=== PATIENT | male | born 1955 | race Caucasian/White ===

== ENCOUNTER 2020-05-27 14:02 | Inpatient (IN) | payer MEDICARE, OTHER ==
[~2020-05-27] VITALS: Ht 185.4 cm; Wt 94.4 kg
[2020-05-27 16:20] VITALS: BP 127/75
[2020-05-27] MEDS ORDERED: MAG HYDROX/AL HYDROX/SIMETH 30 ML ORAL.SUSP PO PRN (16:30)
[2020-05-27] MEDS ORDERED: METHYL SALICYLATE/MENTHOL TOPICAL OINTMENT 57GM TUBE. TP PRN (16:30)
[2020-05-27] MEDS ORDERED: ACETAMINOPHEN 325 MG TABLET PO PRN (16:30)
[2020-05-27] MEDS ORDERED: MAGNESIUM HYDROXIDE 2,400 MG/30 ML ORAL.SUSP. PO PRN (16:30)
[2020-05-27] MEDS ORDERED: MULT-237 PO (17:33)
[2020-05-27] MEDS ORDERED: ERGO500027 PO (17:33)
[2020-05-27] MEDS ORDERED: POLY2500 PO (17:33)
[2020-05-27] MEDS ORDERED: ONDA-84 PO (17:33)
[2020-05-27] MEDS ORDERED: DONE10TA7 PO (17:33)
[2020-05-27] MEDS ORDERED: LORA10TA3 PO (17:33)
[2020-05-27] MEDS ORDERED: QUET100T4 PO (17:33)
[2020-05-27] MEDS ORDERED: CYAN500T7 PO (17:33)
[2020-05-27] MEDS ORDERED: TRAZ-120 PO (17:33)
[2020-05-27] MEDS ORDERED: MEMA10TA PO (17:33)
[2020-05-27] MEDS ORDERED: ACET500T68 PO (17:33)
[2020-05-27] MEDS ORDERED: ASPI81TA59 PO (17:33)
[2020-05-27] MEDS ORDERED: DOCU100C28 PO (17:33)
[2020-05-27] MEDS ORDERED: FLUT16SP21 NS (17:33)
[2020-05-27] MEDS ORDERED: OMEP20CA16 PO (17:33)
[2020-05-27] MEDS ORDERED: MELA10CA PO (17:33)
[2020-05-27] MEDS ORDERED: FLUV50TA2 PO (17:33)
[2020-05-27 18:06] LABS: BACTERIA,URINE 0 /HPF (0-FEW); BILIRUBIN,URINE NEG (NEG); CLARITY,URINE CLEAR; COLOR,URINE YELLOW; GLUCOSE,URINE NEG (NEG); NITRITE,URINE NEG (NEG); RBC,URINE RARE /HPF (0-2); WBC,URINE RARE /HPF (0-4)
[2020-05-27] MEDS ORDERED: ACETAMINOPHEN 500 MG TABLET PO PRN (18:15)
[2020-05-27] MEDS ORDERED: ONDANSETRON ODT 4 MG TAB.RAPDIS PO PRN (19:00)
[2020-05-27] MEDS: QUEtiapine 100 MG TABLET. PO SCH (20:02)
[2020-05-27] MEDS: DOCUSATE SODIUM 100 MG CAPSULE PO SCH (20:02)
[2020-05-27] MEDS: MEMANTINE 10 MG TABLET. PO SCH (20:02)
[2020-05-27] MEDS: DONEPEZIL HCL 10 MG TABLET PO SCH (20:02)
--- NOTE | 2020-05-27 20:58 | PDOC ---
Exam Note: Floyd Note: Please also refer to the separate dictated note~for this date of service dictated separately.~Patient seen individually. Discussed the patient with Nursing staff reviewed the chart.~Reviewed interim history and current functioning. Reviewed vital signs,~Labs/ Radiology~and current medications noted below. Continue current treatment with the changes noted in the dictated addendum note Assessment: Vital Signs/I&O: Vital Signs Date Time Temp Pulse Resp B/P (MAP) Pulse Ox O2 Delivery O2 Flow Rate FiO2 05/27/20 16:20 97.3 73 20 127/75 (92) 95 Room Air Labs: Laboratory Tests Test 05/27/20 17:30 Urine Collection Type Unknown Urine Color Yellow Urine Clarity Clear Urine pH 5.5 Urine Specific Eldred 1.025 Urine Protein Neg (NEG-TRACE) Urine Glucose (UA) Neg mg/dL (NEG) Urine Ketones (Stick) Neg mg/dL (NEG) Urine Blood Neg (NEG) Urine Nitrite Neg (NEG) Urine Bilirubin Neg (NEG) Urine Urobilinogen Dipstick 1.0 mg/dL (0.2 mg/dL) Urine Leukocyte Esterase Neg (NEG) Urine RBC Rare /HPF (0-2) Urine WBC Rare /HPF (0-4) Urine Squamous Epithelial Cells None /LPF Urine Bacteria 0 /HPF (0-FEW) Urine Mucus Slight /LPF Current Medications: Meds: Laboratory Tests Test 05/27/20 17:30 Urine Collection Type Unknown Urine Color Yellow Urine Clarity Clear Urine pH 5.5 Urine Specific Eldred 1.025 Urine Protein Neg Urine Glucose (UA) Neg mg/dL Urine Ketones (Stick) Neg mg/dL Urine Blood Neg Urine Nitrite Neg Urine Bilirubin Neg Urine Urobilinogen Dipstick 1.0 mg/dL Urine Leukocyte Esterase Neg Urine RBC Rare /HPF Urine WBC Rare /HPF Urine Squamous Epithelial Cells None /LPF Urine Bacteria 0 /HPF Urine Mucus Slight /LPF Current Medications Medications (Trade) Dose Ordered Sig/Neftali Route PRN Reason Start Time Stop Time Status Last Admin Dose Admin Acetaminophen (Tylenol) 650 mg PRN Q6HRS PRN PO MILD PAIN / TEMP > 100.3'F 05/27/20 16:30 Multi-Ingredient Ointment (Analgesic Leonard) 1 herman PRN QID PRN TP MUSCLE PAIN 05/27/20 16:30 Al Hydroxide/Mg Hydroxide (Mylanta Plus Xs) 15 ml PRN AFTMEALHC PRN PO DYSPEPSIA 05/27/20 16:30 Magnesium Hydroxide (Milk Of Magnesia) 2,400 mg PRN QHS PRN PO CONSTIPATION 05/27/20 16:30 Acetaminophen (Tylenol) 500 mg PRN Q6HRS PRN PO PAIN 05/27/20 18:15 UNV Aspirin (Aspirin Chewable) 81 mg DAILY PO 05/28/20 09:00 Docusate Sodium (Colace) 100 mg BID PO 05/27/20 21:00 05/27/20 20:02 Donepezil HCl (Aricept) 10 mg HS PO 05/27/20 21:00 05/27/20 20:02 Fluticasone Propionate (Flonase) 1 spray DAILY NS 05/28/20 09:00 Memantine (Namenda) 10 mg BID PO 05/27/20 21:00 05/27/20 20:02 Quetiapine Fumarate (SEROquel) 100 mg QHS PO 05/27/20 21:00 05/27/20 20:02 Trazodone HCl (Desyrel) 50 mg QHS PO 05/27/20 21:00 05/27/20 20:02 Cyanocobalamin (Vitamin B-12) 100 mcg DAILY PO 05/28/20 09:00 Non-Formulary Medication (Ergocalciferol (Vitamin D2) (Vitamin D2)) 1,250 mcg WEEKLY PO 06/03/20 09:00 UNV Fluvoxamine Maleate (Luvox) 50 mg QHS PO 05/27/20 21:00 05/27/20 20:02 Cetirizine HCl (ZyrTEC) 10 mg DAILY PO 05/28/20 09:00 Melatonin (Melatonin) 9 mg HS PO 05/27/20 21:00 05/27/20 20:02 Multivitamins/ Calcium (Thera-M Plus) 1 tab DAILY PO 05/28/20 09:00 Pantoprazole Sodium (Protonix) 40 mg DAILYAC PO 05/28/20 07:30 Ondansetron HCl (Zofran Odt) 4 mg PRN Q6HRS PRN PO NAUSEA/VOMITING 05/27/20 19:00 Polyethylene Glycol (miraLAX) 17 gm DAILY PO 05/28/20 09:00 Vitamin D (Vitamin D3) 50,000 unit WEEKLY PO 05/28/20 09:00 Current Medications Medications (Trade) Dose Ordered Sig/Neftali Route PRN Reason Start Time Stop Time Status Last Admin Dose Admin Docusate Sodium (Colace) 100 mg BID PO 05/27/20 21:00 05/27/20 20:02 Donepezil HCl (Aricept) 10 mg HS PO 05/27/20 21:00 05/27/20 20:02 Memantine (Namenda) 10 mg BID PO 05/27/20 21:00 05/27/20 20:02 Quetiapine Fumarate (SEROquel) 100 mg QHS PO 05/27/20 21:00 05/27/20 20:02 Trazodone HCl (Desyrel) 50 mg QHS PO 05/27/20 21:00 05/27/20 20:02 Fluvoxamine Maleate (Luvox) 50 mg QHS PO 05/27/20 21:00 05/27/20 20:02 Melatonin (Melatonin) 9 mg HS PO 05/27/20 21:00 05/27/20 20:02 I have reviewed the current psychotropics carefully including drug interactions. Risk benefit ratio favors no change other than as noted in my dictated progress note. Diagnosis: Problems: (1) Major neurocognitive disorder AYLIN VALENCIA MD May 27, 2020 20:58
[2020-05-27] MEDS ORDERED: traZODone 50 MG TABLET. PO SCH (21:00)
[2020-05-27] MEDS ORDERED: MELATONIN 3 MG TABLET PO SCH (21:00)
[2020-05-27 22:23] LABS: BASO % 0 % (0-3); EOS # 0.1 x10^3/uL (0.0-0.7); EOS % 1 % (0-3); HEMATOCRIT 47.9 % (39.0-53.0); HEMOGLOBIN 16.1 g/dL (13.0-17.5); LYMPH # 1.5 x10^3/uL (1.0-4.8); LYMPH % 15 % (24-48); MEAN CORPUSCULAR HEMOGLOBIN 33 pg (25-35); MEAN CORPUSCULAR HGB CONC 34 g/dL (31-37); MEAN CORPUSCULAR VOLUME 97 fL (79-100); MONO # 0.5 x10^3/uL (0.0-1.1); MONO % 6 % (0-9); NEUT # 7.6 x10^3uL (1.8-7.7); NEUT % 78 % (31-73); PLATELET COUNT 185 x10^3/uL (140-400); RED BLOOD COUNT 4.96 x10^6/uL (4.30-5.70); RED CELL DISTRIBUTION WIDTH 14.5 % (11.5-14.5); WHITE BLOOD COUNT 9.7 x10^3/uL (4.0-11.0)
[2020-05-27 22:45] LABS: ALBUMIN 3.8 g/dL (3.4-5.0); CALCIUM 9.2 mg/dL (8.5-10.1); CREATININE 1.1 mg/dL (0.7-1.3); GFR 67.6; MAGNESIUM 2.1 mg/dL (1.8-2.4); TOTAL BILIRUBIN 2.4 mg/dL (0.2-1.0); TOTAL PROTEIN 7.5 g/dL (6.4-8.2)
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
[2020-05-28 05:30] VITALS: BP 108/70
[2020-05-28] MEDS: DOCUSATE SODIUM 100 MG CAPSULE PO SCH ×2 (09:43→19:58)
[2020-05-28] MEDS: ASPIRIN CHEWABLE 81 MG TABLET. PO SCH (09:43)
[2020-05-28] MEDS: PANTOPRAZOLE 40 MG TABLET. PO SCH (09:44)
[2020-05-28] MEDS: CYANOCOBALAMIN (VITAMIN B-12) 100 MCG TABLET PO SCH (09:44)
[2020-05-28] MEDS: CHOLECALCIFEROL (VITAMIN D3) 50,000 UNIT CAPSULE PO SCH (09:44)
[2020-05-28] MEDS: FLUTICASONE 50MCG/NASAL SPRAY 16GM BOTTLE. NS SCH (09:44)
[2020-05-28] MEDS: CETIRIZINE HCL 10 MG TABLET PO SCH (09:44)
[2020-05-28] MEDS: MEMANTINE 10 MG TABLET. PO SCH ×2 (09:44→19:58)
[2020-05-28] MEDS: POLYETHYLENE GLYCOL 3350 17 GM PACKET. PO SCH (09:44)
[2020-05-28] MEDS: MULTIVITAMIN with MINERAL TABLET. PO SCH (09:46)
[2020-05-28 13:10] LABS: THYROXINE 7.4 ug/dL (4.5-12.0)
[2020-05-28 15:21] VITALS: BP 106/79
[2020-05-28 15:23] LABS: THYROID STIM HORMONE (TSH) 0.655 uIU/mL (0.358-3.740)
--- NOTE | 2020-05-28 15:27 | RAD ---
Examination: CT head and cervical spine without contrast CT HEAD INDICATION: Traumatic brain injury altered mental status COMPARISON: None Available. Exposure: One or more of the following individualized dose reduction techniques were utilized for thi s examination: 1. Automated exposure control 2. Adjustment of the mA and/or kV according to patient size 3. Use of iterative reconstruction technique TECHNIQUE: 5 mm contiguous axial images were obtained from the skull base to the vertex in both bone and soft tissue algorithm. FINDINGS: No abnormal attenuation within the brain parenchyma. No evidence of acute intracranial hemorrhage. No extra-axial fluid collections. No mass effect or midline shift. Ventricular size is appropriate. Basal cisterns are patent. No fractures identified.Muñoz-white differentiation is preserved.Globes and orbits are within normal l imits. Paranasal sinuses and mastoid air cells are clear. CT CERVICAL SPINE INDICATION: Traumatic brain injury, altered mental status COMPARISON: None Available. Technique: 2.5 mm contiguous axial images were obtained from the skull base through the cervicothorac ic junction in both bone and soft tissue algorithm. Additional sagittal and coronal reconstructions were also performed. FINDINGS: Vertebral body height and alignment are maintained. Cervical lordosis is preserved. The l ateral masses of C1 are aligned upon C2. No fractures identified. The bony canal is patent throughout. Moderate intervertebral disc height loss identified in the cervical spine throughout likely degenerat jose changes. The paraspinous soft tissues are unremarkable. Visualized intracranial contents are unremarkable. L nadia apices are clear. IMPRESSION: 1. No acute intracranial findings. Consider MRI if there is clinical suspicion of ischemic stroke. 2. No acute fracture cervical spine. Correlate clinically. 3. Moderate degenerative changes cervical spine. Electronically signed by: Faizan Aguillon MD (05/28/2020 3:25 PM) [id number]
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
[2020-05-28] MEDS: DONEPEZIL HCL 10 MG TABLET PO SCH (19:58)
[2020-05-28] MEDS: QUEtiapine 100 MG TABLET. PO SCH (19:58)
[2020-05-28] MEDS: MELATONIN 3 MG TABLET PO PRN (20:20)
--- NOTE | 2020-05-28 21:01 | PDOC ---
Exam Note: Floyd Note: Please also refer to the separate dictated note~for this date of service dictated separately.~Patient seen individually. Discussed the patient with Nursing staff reviewed the chart.~Reviewed interim history and current functioning. Reviewed vital signs,~Labs/ Radiology~and current medications noted below. Continue current treatment with the changes noted in the dictated addendum note Assessment: Vital Signs/I&O: Vital Signs Date Time Temp Pulse Resp B/P (MAP) Pulse Ox O2 Delivery O2 Flow Rate FiO2 05/28/20 15:21 97.6 94 18 106/79 (88) 97 Room Air Labs: Laboratory Tests Test 05/27/20 22:07 05/28/20 06:12 White Blood Count 9.7 x10^3/uL (4.0-11.0) Red Blood Count 4.96 x10^6/uL (4.30-5.70) Hemoglobin 16.1 g/dL (13.0-17.5) Hematocrit 47.9 % (39.0-53.0) Mean Corpuscular Volume 97 fL (79-100) Mean Corpuscular Hemoglobin 33 pg (25-35) Mean Corpuscular Hemoglobin Concent 34 g/dL (31-37) Red Cell Distribution Width 14.5 % (11.5-14.5) Platelet Count 185 x10^3/uL (140-400) Neutrophils (%) (Auto) 78 % (31-73) H Lymphocytes (%) (Auto) 15 % (24-48) L Monocytes (%) (Auto) 6 % (0-9) Eosinophils (%) (Auto) 1 % (0-3) Basophils (%) (Auto) 0 % (0-3) Neutrophils # (Auto) 7.6 x10^3uL (1.8-7.7) Lymphocytes # (Auto) 1.5 x10^3/uL (1.0-4.8) Monocytes # (Auto) 0.5 x10^3/uL (0.0-1.1) Eosinophils # (Auto) 0.1 x10^3/uL (0.0-0.7) Basophils # (Auto) 0.0 x10^3/uL (0.0-0.2) Sodium Level 142 mmol/L (136-145) Potassium Level 4.0 mmol/L (3.5-5.1) Chloride Level 104 mmol/L (98-107) Carbon Dioxide Level 29 mmol/L (21-32) Anion Gap 9 (6-14) Blood Urea Nitrogen 25 mg/dL (8-26) Creatinine 1.1 mg/dL (0.7-1.3) Estimated GFR (Cockcroft-Gault) 67.6 BUN/Creatinine Ratio 23 (6-20) H Glucose Level 100 mg/dL (70-99) H Calcium Level 9.2 mg/dL (8.5-10.1) Magnesium Level 2.1 mg/dL (1.8-2.4) Iron Level 60 ug/dL (65-175) L Total Iron Binding Capacity 252 ug/dL (250-450) Iron Saturation 24 % (15-34) Total Bilirubin 2.4 mg/dL (0.2-1.0) H Aspartate Amino Transferase (AST) 22 U/L (15-37) Alanine Aminotransferase (ALT) 34 U/L (16-63) Alkaline Phosphatase 102 U/L (46-116) Total Protein 7.5 g/dL (6.4-8.2) Albumin 3.8 g/dL (3.4-5.0) Albumin/Globulin Ratio 1.0 (1.0-1.7) Triglycerides Level 82 mg/dL (0-150) Cholesterol Level 152 mg/dL (0-200) LDL Cholesterol, Calculated 98 mg/dL (0-100) VLDL Cholesterol, Calculated 16 mg/dL (0-40) Non-HDL Cholesterol Calculated 114 mg/dL (0-129) HDL Cholesterol 38 mg/dL (40-60) L Cholesterol/HDL Ratio 4.0 Vitamin B12 Level 1735 pg/mL (247-911) H 25-Hydroxy Vitamin D Total 41.8 ng/mL (30-100) Thyroid Stimulating Hormone (TSH) 0.655 uIU/mL (0.358-3.740) Thyroxine (T4) 7.4 ug/dL (4.5-12.0) Total Triiodothyronine (TT3) 85 ng/dL (71-180) Treponema pallidum Antibody Nonreactive (Nonreactive) D-Dimer (Alejandra) 0.28 mg/L (0.00-0.50) Current Medications: Meds: Current Medications Medications (Trade) Dose Ordered Sig/Neftali Route PRN Reason Start Time Stop Time Status Last Admin Dose Admin Aspirin (Aspirin Chewable) 81 mg DAILY PO 05/28/20 09:00 05/28/20 09:43 Fluticasone Propionate (Flonase) 1 spray DAILY NS 05/28/20 09:00 05/28/20 09:44 Cyanocobalamin (Vitamin B-12) 100 mcg DAILY PO 05/28/20 09:00 05/28/20 09:44 Cetirizine HCl (ZyrTEC) 10 mg DAILY PO 05/28/20 09:00 05/28/20 09:44 Multivitamins/ Calcium (Thera-M Plus) 1 tab DAILY PO 05/28/20 09:00 05/28/20 09:46 Pantoprazole Sodium (Protonix) 40 mg DAILYAC PO 05/28/20 07:30 05/28/20 09:44 Polyethylene Glycol (miraLAX) 17 gm DAILY PO 05/28/20 09:00 05/28/20 09:44 Vitamin D (Vitamin D3) 50,000 unit WEEKLY PO 05/28/20 09:00 05/28/20 09:44 Melatonin (Melatonin) 6 mg PRN QHS PRN PO INSOMNIA 05/28/20 11:15 05/28/20 20:20 I have reviewed the current psychotropics carefully including drug interactions. Risk benefit ratio favors no change other than as noted in my dictated progress note. Diagnosis: Problems: (1) Dementia in Alzheimer's disease with delusions (2) Dementia in Alzheimer's disease with depression (3) Dementia of the Alzheimer's type with early onset with behavioral disturbance (4) Dementia, vascular, with delusions (5) Dementia, vascular, with depression (6) Anxiety disorder, unspecified (7) Impulse control disorder, unspecified (8) Major neurocognitive disorder AYLIN VALENCIA MD May 28, 2020 21:01
[2020-05-28 23:10] LABS: HEMOGLOBIN A1C 5.2 % (4.8-5.6)
[2020-05-29 05:46] VITALS: BP 107/70
[2020-05-29] MEDS: MEMANTINE 10 MG TABLET. PO SCH ×2 (08:50→19:40)
[2020-05-29] MEDS: ASPIRIN CHEWABLE 81 MG TABLET. PO SCH (08:50)
[2020-05-29] MEDS: POLYETHYLENE GLYCOL 3350 17 GM PACKET. PO SCH (08:50)
[2020-05-29] MEDS: FLUTICASONE 50MCG/NASAL SPRAY 16GM BOTTLE. NS SCH (08:50)
[2020-05-29] MEDS: PANTOPRAZOLE 40 MG TABLET. PO SCH (08:50)
[2020-05-29] MEDS: CETIRIZINE HCL 10 MG TABLET PO SCH (08:50)
[2020-05-29] MEDS: DOCUSATE SODIUM 100 MG CAPSULE PO SCH ×2 (08:50→19:40)
[2020-05-29] MEDS: MULTIVITAMIN with MINERAL TABLET. PO SCH (08:50)
[2020-05-29] MEDS: CYANOCOBALAMIN (VITAMIN B-12) 100 MCG TABLET PO SCH (08:50)
[2020-05-29 16:55] VITALS: BP 150/83
[2020-05-29] MEDS: DONEPEZIL HCL 10 MG TABLET PO SCH (19:40)
[2020-05-29] MEDS: QUEtiapine 100 MG TABLET. PO SCH (19:40)
[2020-05-29] MEDS: MELATONIN 3 MG TABLET PO PRN (19:40)
[2020-05-30 05:25] VITALS: BP 105/70
[2020-05-30] MEDS: FLUTICASONE 50MCG/NASAL SPRAY 16GM BOTTLE. NS SCH (08:10)
[2020-05-30] MEDS: POLYETHYLENE GLYCOL 3350 17 GM PACKET. PO SCH (08:11)
[2020-05-30] MEDS: CETIRIZINE HCL 10 MG TABLET PO SCH (08:11)
[2020-05-30] MEDS: PANTOPRAZOLE 40 MG TABLET. PO SCH (08:11)
[2020-05-30] MEDS: ASPIRIN CHEWABLE 81 MG TABLET. PO SCH (08:11)
[2020-05-30] MEDS: MULTIVITAMIN with MINERAL TABLET. PO SCH (08:11)
[2020-05-30] MEDS: CYANOCOBALAMIN (VITAMIN B-12) 100 MCG TABLET PO SCH (08:11)
[2020-05-30] MEDS: DOCUSATE SODIUM 100 MG CAPSULE PO SCH ×2 (08:11→20:39)
[2020-05-30] MEDS: MEMANTINE 10 MG TABLET. PO SCH ×2 (08:11→20:39)
[2020-05-30 15:43] VITALS: BP 124/79
[2020-05-30] MEDS: QUEtiapine 100 MG TABLET. PO SCH (20:39)
[2020-05-30] MEDS: DONEPEZIL HCL 10 MG TABLET PO SCH (20:39)
--- NOTE | 2020-05-30 21:14 | PDOC ---
Exam Note: Floyd Note: Late entry for 05/29/2020. Please also refer to the separate dictated note~for this date of service dictated separately.~Patient seen individually. Discussed the patient with Nursing staff reviewed the chart.~Reviewed interim history and current functioning. Reviewed vital signs,~Labs/ Radiology~and current medic ations noted below. Continue current treatment with the changes noted in the dictated addendum note Assessment: Vital Signs/I&O: Vital Signs Date Time Temp Pulse Resp B/P (MAP) Pulse Ox O2 Delivery O2 Flow Rate FiO2 05/30/20 15:43 98.4 62 18 124/79 (94) 98 05/30/20 05:25 Room Air I & O 0 05/29/20 05/29/20 05/30/20 15:00 23:00 07:00 Intake Total 600 ml 480 ml Balance 600 ml 480 ml Current Medications: I have reviewed the current psychotropics carefully including drug interactions. Risk benefit ratio favors no change other than as noted in my dictated progress note. Diagnosis: Problems: (1) Major neurocognitive disorder (2) Impulse control disorder, unspecified (3) Anxiety disorder, unspecified (4) Dementia, vascular, with depression (5) Dementia, vascular, with delusions (6) Dementia in Alzheimer's disease with depression (7) Dementia in Alzheimer's disease with delusions (8) Dementia of the Alzheimer's type with early onset with behavioral disturbance AYLIN VALENCIA MD May 30, 2020 21:14
--- NOTE | 2020-05-30 21:15 | PDOC ---
Exam Note: Floyd Note: Please also refer to the separate dictated note~for this date of service dictated separately.~Patient seen individually. Discussed the patient with Nursing staff reviewed the chart.~Reviewed interim history and current functioning. Reviewed vital signs,~Labs/ Radiology~and current medications noted below. Continue current treatment with the changes noted in the dictated addendum note Assessment: Vital Signs/I&O: Vital Signs Date Time Temp Pulse Resp B/P (MAP) Pulse Ox O2 Delivery O2 Flow Rate FiO2 05/30/20 15:43 98.4 62 18 124/79 (94) 98 05/30/20 05:25 Room Air I & O 05/29/20 05/29/20 05/30/20 15:00 23:00 07:00 Intake Total 600 ml 480 ml Balance 600 ml 480 ml Current Medications: I have reviewed the current psychotropics carefully including drug interactions. Risk benefit ratio favors no change other than as noted in my dictated progress note. Diagnosis: Problems: (1) Major neurocognitive disorder (2) Impulse control disorder, unspecified (3) Anxiety disorder, unspecified (4) Dementia, vascular, with depression (5) Dementia, vascular, with delusions (6) Dementia in Alzheimer's disease with depression (7) Dementia in Alzheimer's disease with delusions (8) Dementia of the Alzheimer's type with early onset with behavioral disturbance AYLIN VALENCIA MD May 30, 2020 21:15
[2020-05-31 06:20] VITALS: BP 102/69
[2020-05-31] MEDS: POLYETHYLENE GLYCOL 3350 17 GM PACKET. PO SCH (07:59)
[2020-05-31] MEDS: CETIRIZINE HCL 10 MG TABLET PO SCH (07:59)
[2020-05-31] MEDS: DOCUSATE SODIUM 100 MG CAPSULE PO SCH ×2 (07:59→18:28)
[2020-05-31] MEDS: MULTIVITAMIN with MINERAL TABLET. PO SCH (08:00)
[2020-05-31] MEDS: PANTOPRAZOLE 40 MG TABLET. PO SCH (08:00)
[2020-05-31] MEDS: MEMANTINE 10 MG TABLET. PO SCH (08:00)
[2020-05-31] MEDS: ASPIRIN CHEWABLE 81 MG TABLET. PO SCH (08:00)
[2020-05-31] MEDS: CYANOCOBALAMIN (VITAMIN B-12) 100 MCG TABLET PO SCH (08:01)
[2020-05-31] MEDS: FLUTICASONE 50MCG/NASAL SPRAY 16GM BOTTLE. NS SCH (08:01)
[2020-05-31 15:31] VITALS: BP 101/72
[2020-05-31] MEDS: QUEtiapine 100 MG TABLET. PO SCH (18:28)
[2020-05-31] MEDS: traZODone 50 MG TABLET. PO PRN (18:28)
[2020-05-31] MEDS: MELATONIN 3 MG TABLET PO PRN (20:49)
--- NOTE | 2020-05-31 20:52 | PDOC ---
Exam Note: Floyd Note: Please also refer to the separate dictated note~for this date of service dictated separately.~Patient seen individually. Discussed the patient with Nursing staff reviewed the chart.~Reviewed interim history and current functioning. Reviewed vital signs,~Labs/ Radiology~and current medications noted below. Continue current treatment with the changes noted in the dictated addendum note Assessment: Vital Signs/I&O: Vital Signs Date Time Temp Pulse Resp B/P (MAP) Pulse Ox O2 Delivery O2 Flow Rate FiO2 05/31/20 15:31 97.3 95 18 101/72 (82) 95 05/30/20 05:25 Room Air I & O 05/30/20 05/30/20 05/31/20 15:00 23:00 07:00 Intake Total 480 ml 480 ml Balance 480 ml 480 ml Current Medications: I have reviewed the current psychotropics carefully including drug interactions. Risk benefit ratio favors no change other than as noted in my dictated progress note. Diagnosis: Problems: (1) Major neurocognitive disorder (2) Impulse control disorder, unspecified (3) Anxiety disorder, unspecified (4) Dementia, vascular, with depression (5) Dementia, vascular, with delusions (6) Dementia in Alzheimer's disease with depression (7) Dementia in Alzheimer's disease with delusions (8) Dementia of the Alzheimer's type with early onset with behavioral disturbance AYLIN VALENCIA MD May 31, 2020 20:52
[2020-06-01] MEDS: traZODone 50 MG TABLET. PO PRN ×3 (01:44→23:56)
[2020-06-01 06:25] VITALS: BP 121/77
--- NOTE | 2020-06-01 07:02 | PDOC ---
Exam Note: Floyd Note: This note is a late entry for 05/28/2020 covers elements not covered in my initial note. Subjective: The patient was seen face to face in the morning of 05/28/2020 for a treatment team meeting with Samina Andersen, Lilian Parker and Madelaine (aids social worker), Shameka Magana, activity therapy and Perry DE LA GARZA, discussed and reviewed the patients progress. He slept 9 hours previous night. He remains extremely impulsive, restless and is a fall risk and remains on one-on-one status. 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 Starting around age 59 his colleagues had noticed memory problems but they did not share it till about a year later and then he seemed to be worsening. Review of Systems: No CV, , pulmonary, eye system symptoms on review. Reliability poor. Mental Status Exam: The patient is oriented to himself. Insight and judgement, recent and remote memory, attention and concentration, fund of knowledge is poor consistent with his diagnosis. Laboratory Data: Reviewed. Impression: Major neurocognitive disorder Alzheimer vascular with delusion, depression, behavioral disturbance. Anxiety disorder unspecified. Impulse control disorder unspecified. Plan: No change from initial note. We have checked an EKG but he was constantly moving. We will check CT head as workup of his dementia. Reduce melatonin from 10 mg h.s. to 6 mg h.s. p.r.n. maximum and trazodone 50 mg h.s. we will change to p.r.n. Maintain Seroquel, Namenda, Luvox, Aricept for now. Assessment: Vital Signs/I&O: Vital Signs Date Time Temp Pulse Resp B/P (MAP) Pulse Ox O2 Delivery O2 Flow Rate FiO2 06/01/20 06:25 98.1 66 16 121/77 (92) 94 Room Air I & O 05/31/20 05/31/20 06/01/20 15:00 23:00 07:00 Intake Total 120 ml 360 ml 120 ml Balance 120 ml 360 ml 120 ml Current Medications: Meds: Current Medications Medications (Trade) Dose Ordered Sig/Neftali Route PRN Reason Start Time Stop Time Status Last Admin Dose Admin Acetaminophen (Tylenol) 650 mg PRN Q6HRS PRN PO MILD PAIN / TEMP > 100.3'F 05/27/20 16:30 Multi-Ingredient Ointment (Analgesic [place]) 1 herman PRN QID PRN TP MUSCLE PAIN 05/27/20 16:30 Al Hydroxide/Mg Hydroxide (Mylanta Plus Xs) 15 ml PRN AFTMEALHC PRN PO DYSPEPSIA 05/27/20 16:30 Magnesium Hydroxide (Milk Of Magnesia) 2,400 mg PRN QHS PRN PO CONSTIPATION 05/27/20 16:30 Acetaminophen (Tylenol) 500 mg PRN Q6HRS PRN PO PAIN 05/27/20 18:15 UNV Aspirin (Aspirin Chewable) 81 mg DAILY PO 05/28/20 09:00 05/31/20 08:00 Docusate Sodium (Colace) 100 mg BID PO 05/27/20 21:00 05/31/20 18:28 Donepezil HCl (Aricept) 10 mg HS PO 05/27/20 21:00 05/31/20 16:33 DC 05/30/20 20:39 Fluticasone Propionate (Flonase) 1 spray DAILY NS 05/28/20 09:00 05/31/20 08:01 Memantine (Namenda) 10 mg BID PO 05/27/20 21:00 05/31/20 16:33 DC 05/31/20 08:00 Quetiapine Fumarate (SEROquel) 100 mg QHS PO 05/27/20 21:00 05/31/20 18:28 Trazodone HCl (Desyrel) 50 mg QHS PO 05/27/20 21:00 05/28/20 11:16 DC 05/27/20 20:02 Cyanocobalamin (Vitamin B-12) 100 mcg DAILY PO 05/28/20 09:00 05/31/20 08:01 Non-Formulary Medication (Ergocalciferol (Vitamin D2) (Vitamin D2)) 1,250 mcg WEEKLY PO 06/03/20 09:00 UNV Fluvoxamine Maleate (Luvox) 50 mg QHS PO 05/27/20 21:00 05/31/20 18:28 Cetirizine HCl (ZyrTEC) 10 mg DAILY PO 05/28/20 09:00 05/31/20 07:59 Melatonin (Melatonin) 9 mg HS PO 05/27/20 21:00 05/28/20 11:16 DC 05/27/20 20:02 Multivitamins/ Calcium (Thera-M Plus) 1 tab DAILY PO 05/28/20 09:00 05/31/20 08:00 Pantoprazole Sodium (Protonix) 40 mg DAILYAC PO 05/28/20 07:30 05/31/20 08:00 Ondansetron HCl (Zofran Odt) 4 mg PRN Q6HRS PRN PO NAUSEA/VOMITING 05/27/20 19:00 Polyethylene Glycol (miraLAX) 17 gm DAILY PO 05/28/20 09:00 05/31/20 07:59 Vitamin D (Vitamin D3) 50,000 unit WEEKLY PO 05/28/20 09:00 05/28/20 09:44 Melatonin (Melatonin) 6 mg PRN QHS PRN PO INSOMNIA, 1ST CHOICE 05/28/20 11:15 05/31/20 20:49 Trazodone HCl (Desyrel) 50 mg PRN QHS PRN PO INSOMNIA, 2ND CHOICE 05/28/20 20:00 06/01/20 01:44 Olanzapine (ZyPREXA ZYDIS) 2.5 mg PRN Q2HR PRN PO PSYCHOSIS 05/29/20 18:00 06/01/20 01:44 Quetiapine Fumarate (SEROquel) 12.5 mg 0900,1300 PO 06/01/20 09:00 Sertraline HCl (Zoloft) 25 mg DAILY PO 06/01/20 09:00 I have reviewed the current psychotropics carefully including drug interactions. Risk benefit ratio favors no change other than as noted in my dictated progress note. Diagnosis: Problems: (1) Major neurocognitive disorder (2) Impulse control disorder, unspecified (3) Anxiety disorder, unspecified (4) Dementia, vascular, with depression (5) Dementia, vascular, with delusions (6) Dementia in Alzheimer's disease with depression (7) Dementia in Alzheimer's disease with delusions (8) Dementia of the Alzheimer's type with early onset with behavioral disturbance AYLIN VALENCIA MD Jun 01, 2020 07:01
[2020-06-01] MEDS: PANTOPRAZOLE 40 MG TABLET. PO SCH (07:30)
--- NOTE | 2020-06-01 07:39 | PDOC ---
Exam Note: Floyd Note: This note is a late entry for 05/29/2020 covers elements not covered in my initial note. Subjective: The patient was seen face to face in the evening of 05/29/2020 with Leslie DE LA GARZA, discussed and reviewed the chart. He slept 7-1/4 hours previous night. Overall the patient remains on one-on-one status. He remains restless, fall risk but better than before. CT head shows no acute changes. Review of Systems: No CV, , pulmonary, eye system symptoms on review. Reliability poor. Mental Status Exam: The patient is oriented to himself. Insight and judgement, recent and remote memory, attention and concentration, fund of knowledge is poor consistent with his diagnosis. Laboratory Data: Reviewed. Impression: Major neurocognitive disorder Alzheimer vascular with delusion, depression, behavioral disturbance. Anxiety disorder unspecified. Impulse control disorder unspecified. Plan: Continue rest psychotropics unchanged. Assessment: Vital Signs/I&O: Vital Signs Date Time Temp Pulse Resp B/P (MAP) Pulse Ox O2 Delivery O2 Flow Rate FiO2 06/01/20 06:25 98.1 66 16 121/77 (92) 94 Room Air I & O 05/31/20 05/31/20 06/01/20 15:00 23:00 07:00 Intake Total 120 ml 360 ml 120 ml Balance 120 ml 360 ml 120 ml Current Medications: Meds: Current Medications Medications (Trade) Dose Ordered Sig/Neftali Route PRN Reason Start Time Stop Time Status Last Admin Dose Admin Acetaminophen (Tylenol) 650 mg PRN Q6HRS PRN PO MILD PAIN / TEMP > 100.3'F 05/27/20 16:30 Multi-Ingredient Ointment (Analgesic [place]) 1 herman PRN QID PRN TP MUSCLE PAIN 05/27/20 16:30 Al Hydroxide/Mg Hydroxide (Mylanta Plus Xs) 15 ml PRN AFTMEALHC PRN PO DYSPEPSIA 05/27/20 16:30 Magnesium Hydroxide (Milk Of Magnesia) 2,400 mg PRN QHS PRN PO CONSTIPATION 05/27/20 16:30 Acetaminophen (Tylenol) 500 mg PRN Q6HRS PRN PO PAIN 05/27/20 18:15 UNV Aspirin (Aspirin Chewable) 81 mg DAILY PO 05/28/20 09:00 05/31/20 08:00 Docusate Sodium (Colace) 100 mg BID PO 05/27/20 21:00 05/31/20 18:28 Donepezil HCl (Aricept) 10 mg HS PO 05/27/20 21:00 05/31/20 16:33 DC 05/30/20 20:39 Fluticasone Propionate (Flonase) 1 spray DAILY NS 05/28/20 09:00 05/31/20 08:01 Memantine (Namenda) 10 mg BID PO 05/27/20 21:00 05/31/20 16:33 DC 05/31/20 08:00 Quetiapine Fumarate (SEROquel) 100 mg QHS PO 05/27/20 21:00 05/31/20 18:28 Trazodone HCl (Desyrel) 50 mg QHS PO 05/27/20 21:00 05/28/20 11:16 DC 05/27/20 20:02 Cyanocobalamin (Vitamin B-12) 100 mcg DAILY PO 05/28/20 09:00 05/31/20 08:01 Non-Formulary Medication (Ergocalciferol (Vitamin D2) (Vitamin D2)) 1,250 mcg WEEKLY PO 06/03/20 09:00 UNV Fluvoxamine Maleate (Luvox) 50 mg QHS PO 05/27/20 21:00 05/31/20 18:28 Cetirizine HCl (ZyrTEC) 10 mg DAILY PO 05/28/20 09:00 05/31/20 07:59 Melatonin (Melatonin) 9 mg HS PO 05/27/20 21:00 05/28/20 11:16 DC 05/27/20 20:02 Multivitamins/ Calcium (Thera-M Plus) 1 tab DAILY PO 05/28/20 09:00 05/31/20 08:00 Pantoprazole Sodium (Protonix) 40 mg DAILYAC PO 05/28/20 07:30 05/31/20 08:00 Ondansetron HCl (Zofran Odt) 4 mg PRN Q6HRS PRN PO NAUSEA/VOMITING 05/27/20 19:00 Polyethylene Glycol (miraLAX) 17 gm DAILY PO 05/28/20 09:00 05/31/20 07:59 Vitamin D (Vitamin D3) 50,000 unit WEEKLY PO 05/28/20 09:00 05/28/20 09:44 Melatonin (Melatonin) 6 mg PRN QHS PRN PO INSOMNIA, 1ST CHOICE 05/28/20 11:15 05/31/20 20:49 Trazodone HCl (Desyrel) 50 mg PRN QHS PRN PO INSOMNIA, 2ND CHOICE 05/28/20 20:00 06/01/20 01:44 Olanzapine (ZyPREXA ZYDIS) 2.5 mg PRN Q2HR PRN PO PSYCHOSIS 05/29/20 18:00 06/01/20 01:44 Quetiapine Fumarate (SEROquel) 12.5 mg 0900,1300 PO 06/01/20 09:00 Sertraline HCl (Zoloft) 25 mg DAILY PO 06/01/20 09:00 I have reviewed the current psychotropics carefully including drug interactions. Risk benefit ratio favors no change other than as noted in my dictated progress note. Diagnosis: Problems: (1) Major neurocognitive disorder (2) Impulse control disorder, unspecified (3) Anxiety disorder, unspecified (4) Dementia, vascular, with depression (5) Dementia, vascular, with delusions (6) Dementia in Alzheimer's disease with depression (7) Dementia in Alzheimer's disease with delusions (8) Dementia of the Alzheimer's type with early onset with behavioral disturbance AYLIN VALENCIA MD Jun 01, 2020 07:39
--- NOTE | 2020-06-01 08:05 | PDOC ---
Exam Note: Floyd Note: This note is a late entry for 05/30/2020 covers elements not covered in my initial note. Subjective: The patient was seen face to face in the evening of 05/30/2020 with Leslie DE LA GARZA, discussed and reviewed the chart. He slept 8-1/2 hours previous night. The patient has been less anxious, restless, less of a fall risk, more steady in his gait. We will stop the one-on-one status. He continues to wander but many of his responses are more appropriate. When the nursing staff asked him how he was doing, he responded that he was doing well thank you for asking. This was more coherent than prior interactions. He was on the telephone with his daughter, seemed to do better with this as well. Review of Systems: No CV, , pulmonary, eye system symptoms on review. Reliability poor. Mental Status Exam: The patient is oriented to himself. I met with him in his room. Insight and judgement, recent and remote memory, attention and concentrat ion, fund of knowledge is poor consistent with his diagnosis. Laboratory Data: Reviewed. Impression: Major neurocognitive disorder Alzheimer vascular with delusion, depression, behavioral disturbance. Anxiety disorder unspecified. Impulse control disorder unspecified. Plan: No change from initial note. We will adjust psychotropics further as clinically indicated. Assessment: Vital Signs/I&O: Vital Signs Date Time Temp Pulse Resp B/P (MAP) Pulse Ox O2 Delivery O2 Flow Rate FiO2 06/01/20 06:25 98.1 66 16 121/77 (92) 94 Room Air I & O 05/31/20 05/31/20 06/01/20 15:00 23:00 07:00 Intake Total 120 ml 360 ml 120 ml Balance 120 ml 360 ml 120 ml Current Medications: Meds: Current Medications Medications (Trade) Dose Ordered Sig/Neftali Route PRN Reason Start Time Stop Time Status Last Admin Dose Admin Acetaminophen (Tylenol) 650 mg PRN Q6HRS PRN PO MILD PAIN / TEMP > 100.3'F 05/27/20 16:30 Multi-Ingredient Ointment (Analgesic [place]) 1 herman PRN QID PRN TP MUSCLE PAIN 05/27/20 16:30 Al Hydroxide/Mg Hydroxide (Mylanta Plus Xs) 15 ml PRN AFTMEALHC PRN PO DYSPEPSIA 05/27/20 16:30 Magnesium Hydroxide (Milk Of Magnesia) 2,400 mg PRN QHS PRN PO CONSTIPATION 05/27/20 16:30 Acetaminophen (Tylenol) 500 mg PRN Q6HRS PRN PO PAIN 05/27/20 18:15 UNV Aspirin (Aspirin Chewable) 81 mg DAILY PO 05/28/20 09:00 05/31/20 08:00 Docusate Sodium (Colace) 100 mg BID PO 05/27/20 21:00 05/31/20 18:28 Donepezil HCl (Aricept) 10 mg HS PO 05/27/20 21:00 05/31/20 16:33 DC 05/30/20 20:39 Fluticasone Propionate (Flonase) 1 spray DAILY NS 05/28/20 09:00 05/31/20 08:01 Memantine (Namenda) 10 mg BID PO 05/27/20 21:00 05/31/20 16:33 DC 05/31/20 08:00 Quetiapine Fumarate (SEROquel) 100 mg QHS PO 05/27/20 21:00 05/31/20 18:28 Trazodone HCl (Desyrel) 50 mg QHS PO 05/27/20 21:00 05/28/20 11:16 DC 05/27/20 20:02 Cyanocobalamin (Vitamin B-12) 100 mcg DAILY PO 05/28/20 09:00 05/31/20 08:01 Non-Formulary Medication (Ergocalciferol (Vitamin D2) (Vitamin D2)) 1,250 mcg WEEKLY PO 06/03/20 09:00 UNV Fluvoxamine Maleate (Luvox) 50 mg QHS PO 05/27/20 21:00 05/31/20 18:28 Cetirizine HCl (ZyrTEC) 10 mg DAILY PO 05/28/20 09:00 05/31/20 07:59 Melatonin (Melatonin) 9 mg HS PO 05/27/20 21:00 05/28/20 11:16 DC 05/27/20 20:02 Multivitamins/ Calcium (Thera-M Plus) 1 tab DAILY PO 05/28/20 09:00 05/31/20 08:00 Pantoprazole Sodium (Protonix) 40 mg DAILYAC PO 05/28/20 07:30 05/31/20 08:00 Ondansetron HCl (Zofran Odt) 4 mg PRN Q6HRS PRN PO NAUSEA/VOMITING 05/27/20 19:00 Polyethylene Glycol (miraLAX) 17 gm DAILY PO 05/28/20 09:00 05/31/20 07:59 Vitamin D (Vitamin D3) 50,000 unit WEEKLY PO 05/28/20 09:00 05/28/20 09:44 Melatonin (Melatonin) 6 mg PRN QHS PRN PO INSOMNIA, 1ST CHOICE 05/28/20 11:15 05/31/20 20:49 Trazodone HCl (Desyrel) 50 mg PRN QHS PRN PO INSOMNIA, 2ND CHOICE 05/28/20 20:00 06/01/20 01:44 Olanzapine (ZyPREXA ZYDIS) 2.5 mg PRN Q2HR PRN PO PSYCHOSIS 05/29/20 18:00 06/01/20 01:44 Quetiapine Fumarate (SEROquel) 12.5 mg 0900,1300 PO 06/01/20 09:00 Sertraline HCl (Zoloft) 25 mg DAILY PO 06/01/20 09:00 I have reviewed the current psychotropics carefully including drug interactions. Risk benefit ratio favors no change other than as noted in my dictated progress note. Diagnosis: Problems: (1) Major neurocognitive disorder (2) Impulse control disorder, unspecified (3) Anxiety disorder, unspecified (4) Dementia, vascular, with depression (5) Dementia, vascular, with delusions (6) Dementia in Alzheimer's disease with depression (7) Dementia in Alzheimer's disease with delusions (8) Dementia of the Alzheimer's type with early onset with behavioral disturbance AYLIN VALENCIA MD Jun 01, 2020 08:05
--- NOTE | 2020-06-01 08:32 | PDOC ---
Exam Note: Floyd Note: This note is a late entry for 05/31/2020 covers elements not covered in my initial note. Subjective: The patient was seen face to face in the evening of 05/31/2020 with Leslie DE LA GARZA, discussed and reviewed the chart. He slept 6-3/4 hours previous night. Overall the patient was resistive to medications previous night. He slept in, in the morning, otherwise, doing better today, quite confused. He will start owning around supper time. Review of Systems: No CV, , pulmonary, eye system symptoms on review. Reliability poor. Mental Status Exam: The patient is oriented to himself. I met with him in his room. Insight and judgement, recent and remote memory, attention and concentrat ion, fund of knowledge is poor consistent with his diagnosis. Laboratory Data: Reviewed. Impression: Major neurocognitive disorder Alzheimer vascular with delusion, depression, behavioral disturbance. Anxiety disorder unspecified. Impulse control disorder unspecified. Plan: We will start the patient on Zoloft 25 mg a day for his mood and anxiety symptoms. Initiate Seroquel 12.5 mg 1 p.m. and 5 p.m. to help with his psychosis, anxiety and agitation with the evening hours. Stop the Aricept and Namenda since they have little therapeutic benefit at this stage of his dementia. Continue rest unchanged for now. Assessment: Vital Signs/I&O: Vital Signs Date Time Temp Pulse Resp B/P (MAP) Pulse Ox O2 Delivery O2 Flow Rate FiO2 06/01/20 06:25 98.1 66 16 121/77 (92) 94 Room Air I & O 05/31/20 05/31/20 06/01/20 15:00 23:00 07:00 Intake Total 120 ml 360 ml 120 ml Balance 120 ml 360 ml 120 ml Current Medications: Meds: Current Medications Medications (Trade) Dose Ordered Sig/Neftali Route PRN Reason Start Time Stop Time Status Last Admin Dose Admin Acetaminophen (Tylenol) 650 mg PRN Q6HRS PRN PO MILD PAIN / TEMP > 100.3'F 05/27/20 16:30 Multi-Ingredient Ointment (Analgesic [place]) 1 herman PRN QID PRN TP MUSCLE PAIN 05/27/20 16:30 Al Hydroxide/Mg Hydroxide (Mylanta Plus Xs) 15 ml PRN AFTMEALHC PRN PO DYSPEPSIA 05/27/20 16:30 Magnesium Hydroxide (Milk Of Magnesia) 2,400 mg PRN QHS PRN PO CONSTIPATION 05/27/20 16:30 Acetaminophen (Tylenol) 500 mg PRN Q6HRS PRN PO PAIN 05/27/20 18:15 UNV Aspirin (Aspirin Chewable) 81 mg DAILY PO 05/28/20 09:00 05/31/20 08:00 Docusate Sodium (Colace) 100 mg BID PO 05/27/20 21:00 05/31/20 18:28 Donepezil HCl (Aricept) 10 mg HS PO 05/27/20 21:00 05/31/20 16:33 DC 05/30/20 20:39 Fluticasone Propionate (Flonase) 1 spray DAILY NS 05/28/20 09:00 05/31/20 08:01 Memantine (Namenda) 10 mg BID PO 05/27/20 21:00 05/31/20 16:33 DC 05/31/20 08:00 Quetiapine Fumarate (SEROquel) 100 mg QHS PO 05/27/20 21:00 05/31/20 18:28 Trazodone HCl (Desyrel) 50 mg QHS PO 05/27/20 21:00 05/28/20 11:16 DC 05/27/20 20:02 Cyanocobalamin (Vitamin B-12) 100 mcg DAILY PO 05/28/20 09:00 05/31/20 08:01 Non-Formulary Medication (Ergocalciferol (Vitamin D2) (Vitamin D2)) 1,250 mcg WEEKLY PO 06/03/20 09:00 UNV Fluvoxamine Maleate (Luvox) 50 mg QHS PO 05/27/20 21:00 05/31/20 18:28 Cetirizine HCl (ZyrTEC) 10 mg DAILY PO 05/28/20 09:00 05/31/20 07:59 Melatonin (Melatonin) 9 mg HS PO 05/27/20 21:00 05/28/20 11:16 DC 05/27/20 20:02 Multivitamins/ Calcium (Thera-M Plus) 1 tab DAILY PO 05/28/20 09:00 05/31/20 08:00 Pantoprazole Sodium (Protonix) 40 mg DAILYAC PO 05/28/20 07:30 05/31/20 08:00 Ondansetron HCl (Zofran Odt) 4 mg PRN Q6HRS PRN PO NAUSEA/VOMITING 05/27/20 19:00 Polyethylene Glycol (miraLAX) 17 gm DAILY PO 05/28/20 09:00 05/31/20 07:59 Vitamin D (Vitamin D3) 50,000 unit WEEKLY PO 05/28/20 09:00 05/28/20 09:44 Melatonin (Melatonin) 6 mg PRN QHS PRN PO INSOMNIA, 1ST CHOICE 05/28/20 11:15 05/31/20 20:49 Trazodone HCl (Desyrel) 50 mg PRN QHS PRN PO INSOMNIA, 2ND CHOICE 05/28/20 20:00 06/01/20 01:44 Olanzapine (ZyPREXA ZYDIS) 2.5 mg PRN Q2HR PRN PO PSYCHOSIS 05/29/20 18:00 06/01/20 01:44 Quetiapine Fumarate (SEROquel) 12.5 mg 0900,1300 PO 06/01/20 09:00 Sertraline HCl (Zoloft) 25 mg DAILY PO 06/01/20 09:00 I have reviewed the current psychotropics carefully including drug interactions. Risk benefit ratio favors no change other than as noted in my dictated progress note. Diagnosis: Problems: (1) Major neurocognitive disorder (2) Impulse control disorder, unspecified (3) Anxiety disorder, unspecified (4) Dementia, vascular, with depression (5) Dementia, vascular, with delusions (6) Dementia in Alzheimer's disease with depression (7) Dementia in Alzheimer's disease with delusions (8) Dementia of the Alzheimer's type with early onset with behavioral disturbance AYLIN VALENCIA MD Jun 01, 2020 08:32
[2020-06-01] MEDS: SERTRALINE 25 MG TABLET. PO SCH (09:00)
[2020-06-01] MEDS: MULTIVITAMIN with MINERAL TABLET. PO SCH (09:00)
[2020-06-01] MEDS: QUEtiapine 25 MG TABLET. PO SCH ×2 (09:00→14:07)
[2020-06-01] MEDS: POLYETHYLENE GLYCOL 3350 17 GM PACKET. PO SCH (09:00)
[2020-06-01] MEDS: ASPIRIN CHEWABLE 81 MG TABLET. PO SCH (09:00)
[2020-06-01] MEDS: DOCUSATE SODIUM 100 MG CAPSULE PO SCH ×2 (09:00→20:08)
[2020-06-01] MEDS: CYANOCOBALAMIN (VITAMIN B-12) 100 MCG TABLET PO SCH (09:00)
[2020-06-01] MEDS: CETIRIZINE HCL 10 MG TABLET PO SCH (09:00)
[2020-06-01] MEDS: FLUTICASONE 50MCG/NASAL SPRAY 16GM BOTTLE. NS SCH (09:00)
[2020-06-01 16:10] VITALS: BP 133/89
[2020-06-01] MEDS: QUEtiapine 100 MG TABLET. PO SCH (20:08)
[2020-06-01] MEDS: MELATONIN 3 MG TABLET PO PRN (20:09)
--- NOTE | 2020-06-01 21:03 | PDOC ---
Exam Note: Floyd Note: Please also refer to the separate dictated note~for this date of service dictated separately.~Patient seen individually. Discussed the patient with Nursing staff reviewed the chart.~Reviewed interim history and current functioning. Reviewed vital signs,~Labs/ Radiology~and current medications noted below. Continue current treatment with the changes noted in the dictated addendum note Assessment: Vital Signs/I&O: Vital Signs Date Time Temp Pulse Resp B/P (MAP) Pulse Ox O2 Delivery O2 Flow Rate FiO2 06/01/20 16:10 97.6 79 16 133/89 (104) 96 06/01/20 06:25 Room Air I & O 05/31/20 05/31/20 06/01/20 15:00 23:00 07:00 Intake Total 120 ml 360 ml 120 ml Balance 120 ml 360 ml 120 ml Current Medications: Meds: Current Medications Medications (Trade) Dose Ordered Sig/Neftali Route PRN Reason Start Time Stop Time Status Last Admin Dose Admin Acetaminophen (Tylenol) 650 mg PRN Q6HRS PRN PO MILD PAIN / TEMP > 100.3'F 05/27/20 16:30 Multi-Ingredient Ointment (Analgesic [place]) 1 herman PRN QID PRN TP MUSCLE PAIN 05/27/20 16:30 Al Hydroxide/Mg Hydroxide (Mylanta Plus Xs) 15 ml PRN AFTMEALHC PRN PO DYSPEPSIA 05/27/20 16:30 Magnesium Hydroxide (Milk Of Magnesia) 2,400 mg PRN QHS PRN PO CONSTIPATION 05/27/20 16:30 Acetaminophen (Tylenol) 500 mg PRN Q6HRS PRN PO PAIN 05/27/20 18:15 UNV Aspirin (Aspirin Chewable) 81 mg DAILY PO 05/28/20 09:00 05/31/20 08:00 Docusate Sodium (Colace) 100 mg BID PO 05/27/20 21:00 06/01/20 20:08 Donepezil HCl (Aricept) 10 mg HS PO 05/27/20 21:00 05/31/20 16:33 DC 05/30/20 20:39 Fluticasone Propionate (Flonase) 1 spray DAILY NS 05/28/20 09:00 05/31/20 08:01 Memantine (Namenda) 10 mg BID PO 05/27/20 21:00 05/31/20 16:33 DC 05/31/20 08:00 Quetiapine Fumarate (SEROquel) 100 mg QHS PO 05/27/20 21:00 06/01/20 20:08 Trazodone HCl (Desyrel) 50 mg QHS PO 05/27/20 21:00 05/28/20 11:16 DC 05/27/20 20:02 Cyanocobalamin (Vitamin B-12) 100 mcg DAILY PO 05/28/20 09:00 06/01/20 09:00 Non-Formulary Medication (Ergocalciferol (Vitamin D2) (Vitamin D2)) 1,250 mcg WEEKLY PO 06/03/20 09:00 UNV Fluvoxamine Maleate (Luvox) 50 mg QHS PO 05/27/20 21:00 06/01/20 20:07 Cetirizine HCl (ZyrTEC) 10 mg DAILY PO 05/28/20 09:00 05/31/20 07:59 Melatonin (Melatonin) 9 mg HS PO 05/27/20 21:00 05/28/20 11:16 DC 05/27/20 20:02 Multivitamins/ Calcium (Thera-M Plus) 1 tab DAILY PO 05/28/20 09:00 05/31/20 08:00 Pantoprazole Sodium (Protonix) 40 mg DAILYAC PO 05/28/20 07:30 05/31/20 08:00 Ondansetron HCl (Zofran Odt) 4 mg PRN Q6HRS PRN PO NAUSEA/VOMITING 05/27/20 19:00 Polyethylene Glycol (miraLAX) 17 gm DAILY PO 05/28/20 09:00 05/31/20 07:59 Vitamin D (Vitamin D3) 50,000 unit WEEKLY PO 05/28/20 09:00 05/28/20 09:44 Melatonin (Melatonin) 6 mg PRN QHS PRN PO INSOMNIA, 1ST CHOICE 05/28/20 11:15 06/01/20 20:09 Trazodone HCl (Desyrel) 50 mg PRN QHS PRN PO INSOMNIA, 2ND CHOICE 05/28/20 20:00 06/01/20 20:09 Olanzapine (ZyPREXA ZYDIS) 2.5 mg PRN Q2HR PRN PO PSYCHOSIS 05/29/20 18:00 06/01/20 01:44 Quetiapine Fumarate (SEROquel) 12.5 mg 0900,1300 PO 06/01/20 09:00 06/01/20 14:07 Sertraline HCl (Zoloft) 25 mg DAILY PO 06/01/20 09:00 Current Medications Medications (Trade) Dose Ordered Sig/Neftali Route PRN Reason Start Time Stop Time Status Last Admin Dose Admin Quetiapine Fumarate (SEROquel) 12.5 mg 0900,1300 PO 06/01/20 09:00 06/01/20 14:07 I have reviewed the current psychotropics carefully including drug interactions. Risk benefit ratio favors no change other than as noted in my dictated progress note. Diagnosis: Problems: (1) Major neurocognitive disorder (2) Impulse control disorder, unspecified (3) Anxiety disorder, unspecified (4) Dementia, vascular, with depression (5) Dementia, vascular, with delusions (6) Dementia in Alzheimer's disease with depression (7) Dementia in Alzheimer's disease with delusions (8) Dementia of the Alzheimer's type with early onset with behavioral disturbance AYLIN VALENCIA MD Jun 01, 2020 21:03
[2020-06-01] MEDS: MIRTAZAPINE 7.5 MG TABLET. PO SCH (21:34)
[2020-06-02 05:24] VITALS: BP 108/80
[2020-06-02] MEDS: PANTOPRAZOLE 40 MG TABLET. PO SCH (07:30)
[2020-06-02] MEDS: FLUTICASONE 50MCG/NASAL SPRAY 16GM BOTTLE. NS SCH (09:00)
[2020-06-02] MEDS: DOCUSATE SODIUM 100 MG CAPSULE PO SCH ×2 (09:00→19:43)
[2020-06-02] MEDS: QUEtiapine 25 MG TABLET. PO SCH ×2 (09:00→13:00)
[2020-06-02] MEDS: POLYETHYLENE GLYCOL 3350 17 GM PACKET. PO SCH (09:00)
[2020-06-02] MEDS: CYANOCOBALAMIN (VITAMIN B-12) 100 MCG TABLET PO SCH (09:00)
[2020-06-02] MEDS: MULTIVITAMIN with MINERAL TABLET. PO SCH (09:00)
[2020-06-02] MEDS: SERTRALINE 25 MG TABLET. PO SCH (09:00)
[2020-06-02] MEDS: CETIRIZINE HCL 10 MG TABLET PO SCH (09:00)
[2020-06-02] MEDS: ASPIRIN CHEWABLE 81 MG TABLET. PO SCH (09:00)
[2020-06-02 16:19] VITALS: BP 151/90
[2020-06-02] MEDS: traZODone 50 MG TABLET. PO PRN ×2 (19:43→21:02)
[2020-06-02] MEDS: MELATONIN 3 MG TABLET PO PRN (19:43)
[2020-06-02] MEDS: QUEtiapine 100 MG TABLET. PO SCH (19:43)
[2020-06-02] MEDS: MIRTAZAPINE 7.5 MG TABLET. PO SCH (19:43)
--- NOTE | 2020-06-02 21:15 | PDOC ---
Exam Note: Floyd Note: This note is a late entry for 06/01/2020 covers elements not covered in my initial note. Subjective: The patient was seen face to face in the evening of 06/01/2020 with Oxana DE LA GARZA, discussed and reviewed the chart. He slept 3-3/4 hours previous night. Overall the patient has had a difficult day. He is confused, anxious, restless, constantly moving. In the evening when I met with him in his room he was on his floor, had pulled over all his bed covers, everything was on the floor. Review of Systems: No CV, , pulmonary, eye, ENT system symptoms on review. Mental Status Exam: The patient is oriented to himself. I met with him in his room. Insight and judgement, recent and remote memory, attention and concentration, fund of knowledge is poor consistent with his diagnosis. Laboratory Data: Reviewed. Impression: Major neurocognitive disorder Alzheimer vascular with delusion, depression, behavioral disturbance. Anxiety disorder unspecified. Impulse control disorder unspecified. Plan: No change from initial note. The patient slept 3-3/4 previous, we will add Remeron 7.5 mg p.o. h.s. Maintain Seroquel 12.5 mg b.i.d., Luvox 50 mg h.s. He is also on Zoloft 25 mg a day, Seroquel 100 mg h.s., melatonin. Adjust further as clinically indicated. I have carefully reviewed the drug interactions. Risk-benefit ratio of adding Remeron. Assessment: Vital Signs/I&O: Vital Signs Date Time Temp Pulse Resp B/P (MAP) Pulse Ox O2 Delivery O2 Flow Rate FiO2 06/02/20 16:19 97.3 94 22 151/90 (110) 97 06/01/20 06:25 Room Air I & O 06/01/20 06/01/20 06/02/20 15:00 23:00 07:00 Intake Total 0 ml 360 ml Balance 0 ml 360 ml Current Medications: Meds: Current Medications Medications (Trade) Dose Ordered Sig/Neftali Route PRN Reason Start Time Stop Time Status Last Admin Dose Admin Acetaminophen (Tylenol) 650 mg PRN Q6HRS PRN PO MILD PAIN / TEMP > 100.3'F 05/27/20 16:30 Multi-Ingredient Ointment (Analgesic [place]) 1 herman PRN QID PRN TP MUSCLE PAIN 05/27/20 16:30 Al Hydroxide/Mg Hydroxide (Mylanta Plus Xs) 15 ml PRN AFTMEALHC PRN PO DYSPEPSIA 05/27/20 16:30 Magnesium Hydroxide (Milk Of Magnesia) 2,400 mg PRN QHS PRN PO CONSTIPATION 05/27/20 16:30 Acetaminophen (Tylenol) 500 mg PRN Q6HRS PRN PO PAIN 05/27/20 18:15 UNV Aspirin (Aspirin Chewable) 81 mg DAILY PO 05/28/20 09:00 06/02/20 09:00 Docusate Sodium (Colace) 100 mg BID PO 05/27/20 21:00 06/02/20 19:43 Donepezil HCl (Aricept) 10 mg HS PO 05/27/20 21:00 05/31/20 16:33 DC 05/30/20 20:39 Fluticasone Propionate (Flonase) 1 spray DAILY NS 05/28/20 09:00 06/02/20 09:00 Memantine (Namenda) 10 mg BID PO 05/27/20 21:00 05/31/20 16:33 DC 05/31/20 08:00 Quetiapine Fumarate (SEROquel) 100 mg QHS PO 05/27/20 21:00 06/02/20 19:43 Trazodone HCl (Desyrel) 50 mg QHS PO 05/27/20 21:00 05/28/20 11:16 DC 05/27/20 20:02 Cyanocobalamin (Vitamin B-12) 100 mcg DAILY PO 05/28/20 09:00 06/02/20 09:00 Non-Formulary Medication (Ergocalciferol (Vitamin D2) (Vitamin D2)) 1,250 mcg WEEKLY PO 06/03/20 09:00 UNV Fluvoxamine Maleate (Luvox) 50 mg QHS PO 05/27/20 21:00 06/02/20 19:43 Cetirizine HCl (ZyrTEC) 10 mg DAILY PO 05/28/20 09:00 06/02/20 09:00 Melatonin (Melatonin) 9 mg HS PO 05/27/20 21:00 05/28/20 11:16 DC 05/27/20 20:02 Multivitamins/ Calcium (Thera-M Plus) 1 tab DAILY PO 05/28/20 09:00 06/02/20 09:00 Pantoprazole Sodium (Protonix) 40 mg DAILYAC PO 05/28/20 07:30 06/02/20 07:30 Ondansetron HCl (Zofran Odt) 4 mg PRN Q6HRS PRN PO NAUSEA/VOMITING 05/27/20 19:00 Polyethylene Glycol (miraLAX) 17 gm DAILY PO 05/28/20 09:00 06/02/20 09:00 Vitamin D (Vitamin D3) 50,000 unit WEEKLY PO 05/28/20 09:00 05/28/20 09:44 Melatonin (Melatonin) 6 mg PRN QHS PRN PO INSOMNIA, 1ST CHOICE 05/28/20 11:15 06/02/20 19:43 Trazodone HCl (Desyrel) 50 mg PRN QHS PRN PO INSOMNIA, MAY REPEAT X1 05/28/20 20:00 06/02/20 21:02 Olanzapine (ZyPREXA ZYDIS) 2.5 mg PRN Q2HR PRN PO PSYCHOSIS 05/29/20 18:00 06/02/20 21:02 Quetiapine Fumarate (SEROquel) 12.5 mg 0900,1300 PO 06/01/20 09:00 06/02/20 13:00 Sertraline HCl (Zoloft) 25 mg DAILY PO 06/01/20 09:00 06/02/20 09:00 Mirtazapine (Remeron) 7.5 mg QHS PO 06/01/20 21:45 06/02/20 19:43 Current Medications Medications (Trade) Dose Ordered Sig/Neftali Route PRN Reason Start Time Stop Time Status Last Admin Dose Admin Mirtazapine (Remeron) 7.5 mg QHS PO 06/01/20 21:45 06/02/20 19:43 I have reviewed the current psychotropics carefully including drug interactions. Risk benefit ratio favors no change other than as noted in my dictated progress note. Diagnosis: Problems: (1) Major neurocognitive disorder (2) Impulse control disorder, unspecified (3) Anxiety disorder, unspecified (4) Dementia, vascular, with depression (5) Dementia, vascular, with delusions (6) Dementia in Alzheimer's disease with depression (7) Dementia in Alzheimer's disease with delusions (8) Dementia of the Alzheimer's type with early onset with behavioral disturbance AYLIN VALENCIA MD Jun 02, 2020 21:15
--- NOTE | 2020-06-02 21:15 | PDOC ---
Exam Note: Floyd Note: Please also refer to the separate dictated note~for this date of service dictated separately.~Patient seen individually. Discussed the patient with Nursing staff reviewed the chart.~Reviewed interim history and current functioning. Reviewed vital signs,~Labs/ Radiology~and current medications noted below. Continue current treatment with the changes noted in the dictated addendum note Assessment: Vital Signs/I&O: Vital Signs Date Time Temp Pulse Resp B/P (MAP) Pulse Ox O2 Delivery O2 Flow Rate FiO2 06/02/20 16:19 97.3 94 22 151/90 (110) 97 06/01/20 06:25 Room Air I & O 06/01/20 06/01/20 06/02/20 15:00 23:00 07:00 Intake Total 0 ml 360 ml Balance 0 ml 360 ml Current Medications: Meds: Current Medications Medications (Trade) Dose Ordered Sig/Neftali Route PRN Reason Start Time Stop Time Status Last Admin Dose Admin Acetaminophen (Tylenol) 650 mg PRN Q6HRS PRN PO MILD PAIN / TEMP > 100.3'F 05/27/20 16:30 Multi-Ingredient Ointment (Analgesic [place]) 1 herman PRN QID PRN TP MUSCLE PAIN 05/27/20 16:30 Al Hydroxide/Mg Hydroxide (Mylanta Plus Xs) 15 ml PRN AFTMEALHC PRN PO DYSPEPSIA 05/27/20 16:30 Magnesium Hydroxide (Milk Of Magnesia) 2,400 mg PRN QHS PRN PO CONSTIPATION 05/27/20 16:30 Acetaminophen (Tylenol) 500 mg PRN Q6HRS PRN PO PAIN 05/27/20 18:15 UNV Aspirin (Aspirin Chewable) 81 mg DAILY PO 05/28/20 09:00 06/02/20 09:00 Docusate Sodium (Colace) 100 mg BID PO 05/27/20 21:00 06/02/20 19:43 Donepezil HCl (Aricept) 10 mg HS PO 05/27/20 21:00 05/31/20 16:33 DC 05/30/20 20:39 Fluticasone Propionate (Flonase) 1 spray DAILY NS 05/28/20 09:00 06/02/20 09:00 Memantine (Namenda) 10 mg BID PO 05/27/20 21:00 05/31/20 16:33 DC 05/31/20 08:00 Quetiapine Fumarate (SEROquel) 100 mg QHS PO 05/27/20 21:00 06/02/20 19:43 Trazodone HCl (Desyrel) 50 mg QHS PO 05/27/20 21:00 05/28/20 11:16 DC 05/27/20 20:02 Cyanocobalamin (Vitamin B-12) 100 mcg DAILY PO 05/28/20 09:00 06/02/20 09:00 Non-Formulary Medication (Ergocalciferol (Vitamin D2) (Vitamin D2)) 1,250 mcg WEEKLY PO 06/03/20 09:00 UNV Fluvoxamine Maleate (Luvox) 50 mg QHS PO 05/27/20 21:00 06/02/20 19:43 Cetirizine HCl (ZyrTEC) 10 mg DAILY PO 05/28/20 09:00 06/02/20 09:00 Melatonin (Melatonin) 9 mg HS PO 05/27/20 21:00 05/28/20 11:16 DC 05/27/20 20:02 Multivitamins/ Calcium (Thera-M Plus) 1 tab DAILY PO 05/28/20 09:00 06/02/20 09:00 Pantoprazole Sodium (Protonix) 40 mg DAILYAC PO 05/28/20 07:30 06/02/20 07:30 Ondansetron HCl (Zofran Odt) 4 mg PRN Q6HRS PRN PO NAUSEA/VOMITING 05/27/20 19:00 Polyethylene Glycol (miraLAX) 17 gm DAILY PO 05/28/20 09:00 06/02/20 09:00 Vitamin D (Vitamin D3) 50,000 unit WEEKLY PO 05/28/20 09:00 05/28/20 09:44 Melatonin (Melatonin) 6 mg PRN QHS PRN PO INSOMNIA, 1ST CHOICE 05/28/20 11:15 06/02/20 19:43 Trazodone HCl (Desyrel) 50 mg PRN QHS PRN PO INSOMNIA, MAY REPEAT X1 05/28/20 20:00 06/02/20 21:02 Olanzapine (ZyPREXA ZYDIS) 2.5 mg PRN Q2HR PRN PO PSYCHOSIS 05/29/20 18:00 06/02/20 21:02 Quetiapine Fumarate (SEROquel) 12.5 mg 0900,1300 PO 06/01/20 09:00 06/02/20 13:00 Sertraline HCl (Zoloft) 25 mg DAILY PO 06/01/20 09:00 06/02/20 09:00 Mirtazapine (Remeron) 7.5 mg QHS PO 06/01/20 21:45 06/02/20 19:43 Current Medications Medications (Trade) Dose Ordered Sig/Neftali Route PRN Reason Start Time Stop Time Status Last Admin Dose Admin Mirtazapine (Remeron) 7.5 mg QHS PO 06/01/20 21:45 06/02/20 19:43 I have reviewed the current psychotropics carefully including drug interactions. Risk benefit ratio favors no change other than as noted in my dictated progress note. Diagnosis: Problems: (1) Major neurocognitive disorder (2) Impulse control disorder, unspecified (3) Anxiety disorder, unspecified (4) Dementia, vascular, with depression (5) Dementia, vascular, with delusions (6) Dementia in Alzheimer's disease with depression (7) Dementia in Alzheimer's disease with delusions (8) Dementia of the Alzheimer's type with early onset with behavioral disturbance AYLIN VALENCIA MD Jun 02, 2020 21:15
[2020-06-03 05:48] VITALS: BP 104/68
[2020-06-03 06:27] LABS: BASO % 0 % (0-3); EOS # 0.1 x10^3/uL (0.0-0.7); EOS % 2 % (0-3); HEMATOCRIT 42.2 % (39.0-53.0); LYMPH # 2.1 x10^3/uL (1.0-4.8); LYMPH % 31 % (24-48); MEAN CORPUSCULAR HEMOGLOBIN 32 pg (25-35); MEAN CORPUSCULAR HGB CONC 33 g/dL (31-37); MEAN CORPUSCULAR VOLUME 97 fL (79-100); MONO # 0.6 x10^3/uL (0.0-1.1); MONO % 9 % (0-9); NEUT # 3.8 x10^3uL (1.8-7.7); NEUT % 58 % (31-73); PLATELET COUNT 155 x10^3/uL (140-400); RED BLOOD COUNT 4.34 x10^6/uL (4.30-5.70); RED CELL DISTRIBUTION WIDTH 13.8 % (11.5-14.5); WHITE BLOOD COUNT 6.7 x10^3/uL (4.0-11.0)
[2020-06-03 06:52] LABS: ALBUMIN 3.8 g/dL (3.4-5.0); ALBUMIN/GLOBULIN RATIO 1.2 (1.0-1.7); CALCIUM 9.4 mg/dL (8.5-10.1); CREATININE 1.2 mg/dL (0.7-1.3); POTASSIUM 3.5 mmol/L (3.5-5.1)
--- NOTE | 2020-06-03 07:40 | PDOC ---
Exam Note: Floyd Note: This note is a late entry for 06/02/2020 covers elements not covered in my initial note. Subjective: The patient was seen face to face in the evening of 06/02/2020 with Oxana DE LA GARZA, discussed and reviewed the chart. He slept 5-1/4 hours previous night. Overall the patient remains confused, relatively non verbal. He had a telephone call with his daughter. Review of Systems: No CV, , pulmonary, eye, ENT system symptoms on review. Reliability poor. Mental Status Exam: The patient is oriented to himself. Insight and judgement, recent and remote memory, attention and concentration, fund of knowledge is poor consistent with his diagnosis. Laboratory Data: Reviewed. Impression: Major neurocognitive disorder Alzheimer vascular with delusion, depression, behavioral disturbance. Anxiety disorder unspecified. Impulse control disorder unspecified. Plan: No change from initial note. Overall the patient is less agitated today. Assessment: Vital Signs/I&O: Vital Signs Date Time Temp Pulse Resp B/P (MAP) Pulse Ox O2 Delivery O2 Flow Rate FiO2 06/03/20 05:48 98.4 64 16 104/68 (80) 95 06/01/20 06:25 Room Air I & O 06/02/20 06/02/20 06/03/20 15:00 23:00 07:00 Intake Total 720 ml 120 ml Balance 720 ml 120 ml Labs: Laboratory Tests Test 06/03/20 06:07 White Blood Count 6.7 x10^3/uL (4.0-11.0) Red Blood Count 4.34 x10^6/uL (4.30-5.70) Hemoglobin 14.0 g/dL (13.0-17.5) Hematocrit 42.2 % (39.0-53.0) Mean Corpuscular Volume 97 fL (79-100) Mean Corpuscular Hemoglobin 32 pg (25-35) Mean Corpuscular Hemoglobin Concent 33 g/dL (31-37) Red Cell Distribution Width 13.8 % (11.5-14.5) Platelet Count 155 x10^3/uL (140-400) Neutrophils (%) (Auto) 58 % (31-73) Lymphocytes (%) (Auto) 31 % (24-48) Monocytes (%) (Auto) 9 % (0-9) Eosinophils (%) (Auto) 2 % (0-3) Basophils (%) (Auto) 0 % (0-3) Neutrophils # (Auto) 3.8 x10^3uL (1.8-7.7) Lymphocytes # (Auto) 2.1 x10^3/uL (1.0-4.8) Monocytes # (Auto) 0.6 x10^3/uL (0.0-1.1) Eosinophils # (Auto) 0.1 x10^3/uL (0.0-0.7) Basophils # (Auto) 0.0 x10^3/uL (0.0-0.2) Current Medications: Meds: Laboratory Tests Test 06/03/20 06:07 White Blood Count 6.7 x10^3/uL Red Blood Count 4.34 x10^6/uL Hemoglobin 14.0 g/dL Hematocrit 42.2 % Mean Corpuscular Volume 97 fL Mean Corpuscular Hemoglobin 32 pg Mean Corpuscular Hemoglobin Concent 33 g/dL Red Cell Distribution Width 13.8 % Platelet Count 155 x10^3/uL Neutrophils (%) (Auto) 58 % Lymphocytes (%) (Auto) 31 % Monocytes (%) (Auto) 9 % Eosinophils (%) (Auto) 2 % Basophils (%) (Auto) 0 % Neutrophils # (Auto) 3.8 x10^3uL Lymphocytes # (Auto) 2.1 x10^3/uL Monocytes # (Auto) 0.6 x10^3/uL Eosinophils # (Auto) 0.1 x10^3/uL Basophils # (Auto) 0.0 x10^3/uL Current Medications Medications (Trade) Dose Ordered Sig/Neftali Route PRN Reason Start Time Stop Time Status Last Admin Dose Admin Acetaminophen (Tylenol) 650 mg PRN Q6HRS PRN PO MILD PAIN / TEMP > 100.3'F 05/27/20 16:30 Multi-Ingredient Ointment (Analgesic [place]) 1 herman PRN QID PRN TP MUSCLE PAIN 05/27/20 16:30 Al Hydroxide/Mg Hydroxide (Mylanta Plus Xs) 15 ml PRN AFTMEALHC PRN PO DYSPEPSIA 05/27/20 16:30 Magnesium Hydroxide (Milk Of Magnesia) 2,400 mg PRN QHS PRN PO CONSTIPATION 05/27/20 16:30 Acetaminophen (Tylenol) 500 mg PRN Q6HRS PRN PO PAIN 05/27/20 18:15 UNV Aspirin (Aspirin Chewable) 81 mg DAILY PO 05/28/20 09:00 06/02/20 09:00 Docusate Sodium (Colace) 100 mg BID PO 05/27/20 21:00 06/02/20 19:43 Donepezil HCl (Aricept) 10 mg HS PO 05/27/20 21:00 05/31/20 16:33 DC 05/30/20 20:39 Fluticasone Propionate (Flonase) 1 spray DAILY NS 05/28/20 09:00 06/02/20 09:00 Memantine (Namenda) 10 mg BID PO 05/27/20 21:00 05/31/20 16:33 DC 05/31/20 08:00 Quetiapine Fumarate (SEROquel) 100 mg QHS PO 05/27/20 21:00 06/02/20 19:43 Trazodone HCl (Desyrel) 50 mg QHS PO 05/27/20 21:00 05/28/20 11:16 DC 05/27/20 20:02 Cyanocobalamin (Vitamin B-12) 100 mcg DAILY PO 05/28/20 09:00 06/02/20 09:00 Non-Formulary Medication (Ergocalciferol (Vitamin D2) (Vitamin D2)) 1,250 mcg WEEKLY PO 06/03/20 09:00 UNV Fluvoxamine Maleate (Luvox) 50 mg QHS PO 05/27/20 21:00 06/02/20 19:43 Cetirizine HCl (ZyrTEC) 10 mg DAILY PO 05/28/20 09:00 06/02/20 09:00 Melatonin (Melatonin) 9 mg HS PO 05/27/20 21:00 05/28/20 11:16 DC 05/27/20 20:02 Multivitamins/ Calcium (Thera-M Plus) 1 tab DAILY PO 05/28/20 09:00 06/02/20 09:00 Pantoprazole Sodium (Protonix) 40 mg DAILYAC PO 05/28/20 07:30 06/02/20 07:30 Ondansetron HCl (Zofran Odt) 4 mg PRN Q6HRS PRN PO NAUSEA/VOMITING 05/27/20 19:00 Polyethylene Glycol (miraLAX) 17 gm DAILY PO 05/28/20 09:00 06/02/20 09:00 Vitamin D (Vitamin D3) 50,000 unit WEEKLY PO 05/28/20 09:00 05/28/20 09:44 Melatonin (Melatonin) 6 mg PRN QHS PRN PO INSOMNIA, 1ST CHOICE 05/28/20 11:15 06/02/20 19:43 Trazodone HCl (Desyrel) 50 mg PRN QHS PRN PO INSOMNIA, MAY REPEAT X1 05/28/20 20:00 06/02/20 21:02 Olanzapine (ZyPREXA ZYDIS) 2.5 mg PRN Q2HR PRN PO PSYCHOSIS 05/29/20 18:00 06/02/20 21:02 Quetiapine Fumarate (SEROquel) 12.5 mg 0900,1300 PO 06/01/20 09:00 06/02/20 13:00 Sertraline HCl (Zoloft) 25 mg DAILY PO 06/01/20 09:00 06/02/20 09:00 Mirtazapine (Remeron) 7.5 mg QHS PO 06/01/20 21:45 06/02/20 19:43 I have reviewed the current psychotropics carefully including drug interactions. Risk benefit ratio favors no change other than as noted in my dictated progress note. Diagnosis: Problems: (1) Major neurocognitive disorder (2) Impulse control disorder, unspecified (3) Anxiety disorder, unspecified (4) Dementia, vascular, with depression (5) Dementia, vascular, with delusions (6) Dementia in Alzheimer's disease with depression (7) Dementia in Alzheimer's disease with delusions (8) Dementia of the Alzheimer's type with early onset with behavioral disturbance AYLIN VALENCIA MD Jun 03, 2020 07:40
[2020-06-03] MEDS: DOCUSATE SODIUM 100 MG CAPSULE PO SCH ×2 (09:00→20:12)
[2020-06-03] MEDS ORDERED: NON FORMULARY ITEM (Ergocalciferol (Vitamin D2) (Vitamin D2) 1,250 MCG) PO SCH (09:00)
[2020-06-03] MEDS: FLUTICASONE 50MCG/NASAL SPRAY 16GM BOTTLE. NS SCH (09:00)
[2020-06-03] MEDS: POLYETHYLENE GLYCOL 3350 17 GM PACKET. PO SCH (09:24)
[2020-06-03] MEDS: ASPIRIN CHEWABLE 81 MG TABLET. PO SCH (09:24)
[2020-06-03] MEDS: CYANOCOBALAMIN (VITAMIN B-12) 100 MCG TABLET PO SCH (09:24)
[2020-06-03] MEDS: MULTIVITAMIN with MINERAL TABLET. PO SCH (09:24)
[2020-06-03] MEDS: SERTRALINE 25 MG TABLET. PO SCH (09:24)
[2020-06-03] MEDS: CETIRIZINE HCL 10 MG TABLET PO SCH (09:24)
[2020-06-03] MEDS: QUEtiapine 25 MG TABLET. PO SCH ×2 (09:24→12:19)
[2020-06-03] MEDS: PANTOPRAZOLE 40 MG TABLET. PO SCH (09:26)
[2020-06-03 16:49] VITALS: BP 113/76
[2020-06-03] MEDS: MIRTAZAPINE 7.5 MG TABLET. PO SCH (20:11)
[2020-06-03] MEDS: QUEtiapine 100 MG TABLET. PO SCH (20:12)
[2020-06-03] MEDS: MELATONIN 3 MG TABLET PO PRN (20:13)
[2020-06-03] MEDS: traZODone 50 MG TABLET. PO PRN (20:14)
--- NOTE | 2020-06-03 21:05 | PDOC ---
Exam Note: Floyd Note: Please also refer to the separate dictated note~for this date of service dictated separately.~Patient seen individually. Discussed the patient with Nursing staff reviewed the chart.~Reviewed interim history and current functioning. Reviewed vital signs,~Labs/ Radiology~and current medications noted below. Continue current treatment with the changes noted in the dictated addendum note Assessment: Vital Signs/I&O: Vital Signs Date Time Temp Pulse Resp B/P (MAP) Pulse Ox O2 Delivery O2 Flow Rate FiO2 06/03/20 16:49 98.2 102 20 113/76 (88) 96 06/01/20 06:25 Room Air I & O 06/02/20 06/02/20 06/03/20 15:00 23:00 07:00 Intake Total 720 ml 120 ml Balance 720 ml 120 ml Labs: Laboratory Tests Test 06/03/20 06:07 White Blood Count 6.7 x10^3/uL (4.0-11.0) Red Blood Count 4.34 x10^6/uL (4.30-5.70) Hemoglobin 14.0 g/dL (13.0-17.5) Hematocrit 42.2 % (39.0-53.0) Mean Corpuscular Volume 97 fL (79-100) Mean Corpuscular Hemoglobin 32 pg (25-35) Mean Corpuscular Hemoglobin Concent 33 g/dL (31-37) Red Cell Distribution Width 13.8 % (11.5-14.5) Platelet Count 155 x10^3/uL (140-400) Neutrophils (%) (Auto) 58 % (31-73) Lymphocytes (%) (Auto) 31 % (24-48) Monocytes (%) (Auto) 9 % (0-9) Eosinophils (%) (Auto) 2 % (0-3) Basophils (%) (Auto) 0 % (0-3) Neutrophils # (Auto) 3.8 x10^3uL (1.8-7.7) Lymphocytes # (Auto) 2.1 x10^3/uL (1.0-4.8) Monocytes # (Auto) 0.6 x10^3/uL (0.0-1.1) Eosinophils # (Auto) 0.1 x10^3/uL (0.0-0.7) Basophils # (Auto) 0.0 x10^3/uL (0.0-0.2) Sodium Level 147 mmol/L (136-145) H Potassium Level 3.5 mmol/L (3.5-5.1) Chloride Level 110 mmol/L (98-107) H Carbon Dioxide Level 27 mmol/L (21-32) Anion Gap 10 (6-14) Blood Urea Nitrogen 23 mg/dL (8-26) Creatinine 1.2 mg/dL (0.7-1.3) Estimated GFR (Cockcroft-Gault) 61.0 BUN/Creatinine Ratio 19 (6-20) Glucose Level 101 mg/dL (70-99) H Calcium Level 9.4 mg/dL (8.5-10.1) Total Bilirubin 2.0 mg/dL (0.2-1.0) H Aspartate Amino Transferase (AST) 21 U/L (15-37) Alanine Aminotransferase (ALT) 25 U/L (16-63) Alkaline Phosphatase 91 U/L (46-116) Total Protein 7.0 g/dL (6.4-8.2) Albumin 3.8 g/dL (3.4-5.0) Albumin/Globulin Ratio 1.2 (1.0-1.7) Current Medications: Meds: Laboratory Tests Test 06/03/20 06:07 White Blood Count 6.7 x10^3/uL Red Blood Count 4.34 x10^6/uL Hemoglobin 14.0 g/dL Hematocrit 42.2 % Mean Corpuscular Volume 97 fL Mean Corpuscular Hemoglobin 32 pg Mean Corpuscular Hemoglobin Concent 33 g/dL Red Cell Distribution Width 13.8 % Platelet Count 155 x10^3/uL Neutrophils (%) (Auto) 58 % Lymphocytes (%) (Auto) 31 % Monocytes (%) (Auto) 9 % Eosinophils (%) (Auto) 2 % Basophils (%) (Auto) 0 % Neutrophils # (Auto) 3.8 x10^3uL Lymphocytes # (Auto) 2.1 x10^3/uL Monocytes # (Auto) 0.6 x10^3/uL Eosinophils # (Auto) 0.1 x10^3/uL Basophils # (Auto) 0.0 x10^3/uL Sodium Level 147 mmol/L Potassium Level 3.5 mmol/L Chloride Level 110 mmol/L Carbon Dioxide Level 27 mmol/L Anion Gap 10 Blood Urea Nitrogen 23 mg/dL Creatinine 1.2 mg/dL Estimated GFR (Cockcroft-Gault) 61.0 BUN/Creatinine Ratio 19 Glucose Level 101 mg/dL Calcium Level 9.4 mg/dL Total Bilirubin 2.0 mg/dL Aspartate Amino Transf (AST/SGOT) 21 U/L Alanine Aminotransferase (ALT/SGPT) 25 U/L Alkaline Phosphatase 91 U/L Total Protein 7.0 g/dL Albumin 3.8 g/dL Albumin/Globulin Ratio 1.2 Current Medications Medications (Trade) Dose Ordered Sig/Neftali Route PRN Reason Start Time Stop Time Status Last Admin Dose Admin Acetaminophen (Tylenol) 650 mg PRN Q6HRS PRN PO MILD PAIN / TEMP > 100.3'F 05/27/20 16:30 Multi-Ingredient Ointment (Analgesic [place]) 1 herman PRN QID PRN TP MUSCLE PAIN 05/27/20 16:30 Al Hydroxide/Mg Hydroxide (Mylanta Plus Xs) 15 ml PRN AFTMEALHC PRN PO DYSPEPSIA 05/27/20 16:30 Magnesium Hydroxide (Milk Of Magnesia) 2,400 mg PRN QHS PRN PO CONSTIPATION 05/27/20 16:30 Acetaminophen (Tylenol) 500 mg PRN Q6HRS PRN PO PAIN 05/27/20 18:15 UNV Aspirin (Aspirin Chewable) 81 mg DAILY PO 05/28/20 09:00 06/03/20 09:24 Docusate Sodium (Colace) 100 mg BID PO 05/27/20 21:00 06/03/20 20:12 Donepezil HCl (Aricept) 10 mg HS PO 05/27/20 21:00 05/31/20 16:33 DC 05/30/20 20:39 Fluticasone Propionate (Flonase) 1 spray DAILY NS 05/28/20 09:00 06/02/20 09:00 Memantine (Namenda) 10 mg BID PO 05/27/20 21:00 05/31/20 16:33 DC 05/31/20 08:00 Quetiapine Fumarate (SEROquel) 100 mg QHS PO 05/27/20 21:00 06/03/20 20:12 Trazodone HCl (Desyrel) 50 mg QHS PO 05/27/20 21:00 05/28/20 11:16 DC 05/27/20 20:02 Cyanocobalamin (Vitamin B-12) 100 mcg DAILY PO 05/28/20 09:00 06/03/20 09:24 Non-Formulary Medication (Ergocalciferol (Vitamin D2) (Vitamin D2)) 1,250 mcg WEEKLY PO 06/03/20 09:00 UNV Fluvoxamine Maleate (Luvox) 50 mg QHS PO 05/27/20 21:00 06/03/20 20:12 Cetirizine HCl (ZyrTEC) 10 mg DAILY PO 05/28/20 09:00 06/03/20 09:24 Melatonin (Melatonin) 9 mg HS PO 05/27/20 21:00 05/28/20 11:16 DC 05/27/20 20:02 Multivitamins/ Calcium (Thera-M Plus) 1 tab DAILY PO 05/28/20 09:00 06/03/20 09:24 Pantoprazole Sodium (Protonix) 40 mg DAILYAC PO 05/28/20 07:30 06/03/20 09:26 Ondansetron HCl (Zofran Odt) 4 mg PRN Q6HRS PRN PO NAUSEA/VOMITING 05/27/20 19:00 Polyethylene Glycol (miraLAX) 17 gm DAILY PO 05/28/20 09:00 06/03/20 09:24 Vitamin D (Vitamin D3) 50,000 unit WEEKLY PO 05/28/20 09:00 05/28/20 09:44 Melatonin (Melatonin) 6 mg PRN QHS PRN PO INSOMNIA, 1ST CHOICE 05/28/20 11:15 06/03/20 20:13 Trazodone HCl (Desyrel) 50 mg PRN QHS PRN PO INSOMNIA, MAY REPEAT X1 05/28/20 20:00 06/03/20 20:14 Olanzapine (ZyPREXA ZYDIS) 2.5 mg PRN Q2HR PRN PO PSYCHOSIS 05/29/20 18:00 06/02/20 21:02 Quetiapine Fumarate (SEROquel) 12.5 mg 0900,1300 PO 06/01/20 09:00 06/03/20 12:19 Sertraline HCl (Zoloft) 25 mg DAILY PO 06/01/20 09:00 06/04/20 09:00 06/03/20 09:24 Mirtazapine (Remeron) 7.5 mg QHS PO 06/01/20 21:45 06/03/20 20:11 Sertraline HCl (Zoloft) 50 mg DAILY PO 06/05/20 09:00 I have reviewed the current psychotropics carefully including drug interactions. Risk benefit ratio favors no change other than as noted in my dictated progress note. Diagnosis: Problems: (1) Major neurocognitive disorder (2) Impulse control disorder, unspecified (3) Anxiety disorder, unspecified (4) Dementia, vascular, with depression (5) Dementia, vascular, with delusions (6) Dementia in Alzheimer's disease with depression (7) Dementia in Alzheimer's disease with delusions (8) Dementia of the Alzheimer's type with early onset with behavioral disturbance AYLIN VALENCIA MD Jun 03, 2020 21:05
[2020-06-04 06:14] VITALS: BP 117/73
--- NOTE | 2020-06-04 08:01 | PDOC ---
Exam Note: Floyd Note: This note is a late entry for 06/03/2020 covers elements not covered in my initial note. Subjective: The patient was seen face to face in the evening of 06/03/2020 with Oxana DE LA GARZA, discussed and reviewed the chart. He slept 5-1/2 hours previous night. The patient remains confused, puts himself on the floor but slightly less anxious. Review of Systems: No CV, , pulmonary, eye, ENT system symptoms on review. Reliability poor. Mental Status Exam: The patient is oriented to himself. Insight and judgement, recent and remote memory, attention and concentration, fund of knowledge is poor consistent with his diagnosis. Laboratory Data: Reviewed. Impression: Major neurocognitive disorder Alzheimer vascular with delusion, depression, behavioral disturbance. Anxiety disorder unspecified. Impulse control disorder unspecified. Plan: No change from initial note but after he has been on 25 mg Zoloft for 3 days, we will increase to 50 mg a day. Rest unchanged. Assessment: Vital Signs/I&O: Vital Signs Date Time Temp Pulse Resp B/P (MAP) Pulse Ox O2 Delivery O2 Flow Rate FiO2 06/04/20 06:14 98.6 83 22 117/73 (88) 96 06/01/20 06:25 Room Air I & O 06/03/20 06/03/20 06/04/20 15:00 23:00 07:00 Intake Total 480 ml 240 ml Balance 480 ml 240 ml Current Medications: Meds: Current Medications Medications (Trade) Dose Ordered Sig/Neftali Route PRN Reason Start Time Stop Time Status Last Admin Dose Admin Acetaminophen (Tylenol) 650 mg PRN Q6HRS PRN PO MILD PAIN / TEMP > 100.3'F 05/27/20 16:30 Multi-Ingredient Ointment (Analgesic [place]) 1 herman PRN QID PRN TP MUSCLE PAIN 05/27/20 16:30 Al Hydroxide/Mg Hydroxide (Mylanta Plus Xs) 15 ml PRN AFTMEALHC PRN PO DYSPEPSIA 05/27/20 16:30 Magnesium Hydroxide (Milk Of Magnesia) 2,400 mg PRN QHS PRN PO CONSTIPATION 05/27/20 16:30 Acetaminophen (Tylenol) 500 mg PRN Q6HRS PRN PO PAIN 05/27/20 18:15 UNV Aspirin (Aspirin Chewable) 81 mg DAILY PO 05/28/20 09:00 06/03/20 09:24 Docusate Sodium (Colace) 100 mg BID PO 05/27/20 21:00 06/03/20 20:12 Donepezil HCl (Aricept) 10 mg HS PO 05/27/20 21:00 05/31/20 16:33 DC 05/30/20 20:39 Fluticasone Propionate (Flonase) 1 spray DAILY NS 05/28/20 09:00 06/02/20 09:00 Memantine (Namenda) 10 mg BID PO 05/27/20 21:00 05/31/20 16:33 DC 05/31/20 08:00 Quetiapine Fumarate (SEROquel) 100 mg QHS PO 05/27/20 21:00 06/03/20 20:12 Trazodone HCl (Desyrel) 50 mg QHS PO 05/27/20 21:00 05/28/20 11:16 DC 05/27/20 20:02 Cyanocobalamin (Vitamin B-12) 100 mcg DAILY PO 05/28/20 09:00 06/03/20 09:24 Non-Formulary Medication (Ergocalciferol (Vitamin D2) (Vitamin D2)) 1,250 mcg WEEKLY PO 06/03/20 09:00 UNV Fluvoxamine Maleate (Luvox) 50 mg QHS PO 05/27/20 21:00 06/03/20 20:12 Cetirizine HCl (ZyrTEC) 10 mg DAILY PO 05/28/20 09:00 06/03/20 09:24 Melatonin (Melatonin) 9 mg HS PO 05/27/20 21:00 05/28/20 11:16 DC 05/27/20 20:02 Multivitamins/ Calcium (Thera-M Plus) 1 tab DAILY PO 05/28/20 09:00 06/03/20 09:24 Pantoprazole Sodium (Protonix) 40 mg DAILYAC PO 05/28/20 07:30 06/03/20 09:26 Ondansetron HCl (Zofran Odt) 4 mg PRN Q6HRS PRN PO NAUSEA/VOMITING 05/27/20 19:00 Polyethylene Glycol (miraLAX) 17 gm DAILY PO 05/28/20 09:00 06/03/20 09:24 Vitamin D (Vitamin D3) 50,000 unit WEEKLY PO 05/28/20 09:00 05/28/20 09:44 Melatonin (Melatonin) 6 mg PRN QHS PRN PO INSOMNIA, 1ST CHOICE 05/28/20 11:15 06/03/20 20:13 Trazodone HCl (Desyrel) 50 mg PRN QHS PRN PO INSOMNIA, MAY REPEAT X1 05/28/20 20:00 06/03/20 20:14 Olanzapine (ZyPREXA ZYDIS) 2.5 mg PRN Q2HR PRN PO PSYCHOSIS 05/29/20 18:00 06/02/20 21:02 Quetiapine Fumarate (SEROquel) 12.5 mg 0900,1300 PO 06/01/20 09:00 06/03/20 12:19 Sertraline HCl (Zoloft) 25 mg DAILY PO 06/01/20 09:00 06/04/20 09:00 06/03/20 09:24 Mirtazapine (Remeron) 7.5 mg QHS PO 06/01/20 21:45 06/03/20 20:11 Sertraline HCl (Zoloft) 50 mg DAILY PO 06/05/20 09:00 I have reviewed the current psychotropics carefully including drug interactions. Risk benefit ratio favors no change other than as noted in my dictated progress note. Diagnosis: Problems: (1) Major neurocognitive disorder (2) Impulse control disorder, unspecified (3) Anxiety disorder, unspecified (4) Dementia, vascular, with depression (5) Dementia, vascular, with delusions (6) Dementia in Alzheimer's disease with depression (7) Dementia in Alzheimer's disease with delusions (8) Dementia of the Alzheimer's type with early onset with behavioral disturbance AYLIN VALENCIA MD Jun 04, 2020 08:01
[2020-06-04] MEDS: FLUTICASONE 50MCG/NASAL SPRAY 16GM BOTTLE. NS SCH (09:00)
[2020-06-04] MEDS: CHOLECALCIFEROL (VITAMIN D3) 50,000 UNIT CAPSULE PO SCH (09:00)
[2020-06-04] MEDS: CYANOCOBALAMIN (VITAMIN B-12) 100 MCG TABLET PO SCH (09:00)
[2020-06-04] MEDS: POLYETHYLENE GLYCOL 3350 17 GM PACKET. PO SCH (09:00)
[2020-06-04] MEDS: ASPIRIN CHEWABLE 81 MG TABLET. PO SCH (09:38)
[2020-06-04] MEDS: SERTRALINE 25 MG TABLET. PO SCH (09:42)
[2020-06-04] MEDS: QUEtiapine 25 MG TABLET. PO SCH ×2 (09:42→12:59)
[2020-06-04] MEDS: PANTOPRAZOLE 40 MG TABLET. PO SCH (09:42)
[2020-06-04] MEDS: MULTIVITAMIN with MINERAL TABLET. PO SCH (09:42)
[2020-06-04] MEDS: CETIRIZINE HCL 10 MG TABLET PO SCH (09:43)
[2020-06-04] MEDS: DOCUSATE SODIUM 100 MG CAPSULE PO SCH ×2 (09:43→19:51)
[2020-06-04 16:08] VITALS: BP 150/84
[2020-06-04] MEDS: OLANZapine 2.5 MG TABLET PO SCH (17:00)
[2020-06-04] MEDS: MIRTAZAPINE 7.5 MG TABLET. PO SCH (19:51)
[2020-06-04] MEDS: traZODone 50 MG TABLET. PO SCH (19:53)
[2020-06-04] MEDS: MELATONIN 3 MG TABLET PO SCH (19:53)
--- NOTE | 2020-06-04 21:04 | PDOC ---
Exam Note: Floyd Note: Please also refer to the separate dictated note~for this date of service dictated separately.~Patient seen individually. Discussed the patient with Nursing staff reviewed the chart.~Reviewed interim history and current functioning. Reviewed vital signs,~Labs/ Radiology~and current medications noted below. Continue current treatment with the changes noted in the dictated addendum note Assessment: Vital Signs/I&O: Vital Signs Date Time Temp Pulse Resp B/P (MAP) Pulse Ox O2 Delivery O2 Flow Rate FiO2 06/04/20 16:08 98.5 83 18 150/84 (106) 97 06/01/20 06:25 Room Air I & O 06/03/20 06/03/20 06/04/20 14:59 22:59 06:59 Intake Total 480 ml 240 ml Balance 480 ml 240 ml Current Medications: Meds: Current Medications Medications (Trade) Dose Ordered Sig/Neftali Route PRN Reason Start Time Stop Time Status Last Admin Dose Admin Acetaminophen (Tylenol) 650 mg PRN Q6HRS PRN PO MILD PAIN / TEMP > 100.3'F 05/27/20 16:30 Multi-Ingredient Ointment (Analgesic [place]) 1 herman PRN QID PRN TP MUSCLE PAIN 05/27/20 16:30 Al Hydroxide/Mg Hydroxide (Mylanta Plus Xs) 15 ml PRN AFTMEALHC PRN PO DYSPEPSIA 05/27/20 16:30 Magnesium Hydroxide (Milk Of Magnesia) 2,400 mg PRN QHS PRN PO CONSTIPATION 05/27/20 16:30 Acetaminophen (Tylenol) 500 mg PRN Q6HRS PRN PO PAIN 05/27/20 18:15 UNV Aspirin (Aspirin Chewable) 81 mg DAILY PO 05/28/20 09:00 06/04/20 09:38 Docusate Sodium (Colace) 100 mg BID PO 05/27/20 21:00 06/04/20 19:51 Donepezil HCl (Aricept) 10 mg HS PO 05/27/20 21:00 05/31/20 16:33 DC 05/30/20 20:39 Fluticasone Propionate (Flonase) 1 spray DAILY NS 05/28/20 09:00 06/04/20 09:00 Memantine (Namenda) 10 mg BID PO 05/27/20 21:00 05/31/20 16:33 DC 05/31/20 08:00 Quetiapine Fumarate (SEROquel) 100 mg QHS PO 05/27/20 21:00 06/04/20 16:21 DC 06/03/20 20:12 Trazodone HCl (Desyrel) 50 mg QHS PO 05/27/20 21:00 05/28/20 11:16 DC 05/27/20 20:02 Cyanocobalamin (Vitamin B-12) 100 mcg DAILY PO 05/28/20 09:00 06/04/20 09:00 Non-Formulary Medication (Ergocalciferol (Vitamin D2) (Vitamin D2)) 1,250 mcg WEEKLY PO 06/03/20 09:00 UNV Fluvoxamine Maleate (Luvox) 50 mg QHS PO 05/27/20 21:00 06/04/20 16:21 DC 06/03/20 20:12 Cetirizine HCl (ZyrTEC) 10 mg DAILY PO 05/28/20 09:00 06/04/20 09:43 Melatonin (Melatonin) 9 mg HS PO 05/27/20 21:00 05/28/20 11:16 DC 05/27/20 20:02 Multivitamins/ Calcium (Thera-M Plus) 1 tab DAILY PO 05/28/20 09:00 06/04/20 09:42 Pantoprazole Sodium (Protonix) 40 mg DAILYAC PO 05/28/20 07:30 06/04/20 09:42 Ondansetron HCl (Zofran Odt) 4 mg PRN Q6HRS PRN PO NAUSEA/VOMITING 05/27/20 19:00 Polyethylene Glycol (miraLAX) 17 gm DAILY PO 05/28/20 09:00 06/04/20 09:00 Vitamin D (Vitamin D3) 50,000 unit WEEKLY PO 05/28/20 09:00 06/04/20 09:00 Melatonin (Melatonin) 6 mg PRN QHS PRN PO INSOMNIA, 1ST CHOICE 05/28/20 11:15 06/04/20 16:30 DC 06/03/20 20:13 Trazodone HCl (Desyrel) 50 mg PRN QHS PRN PO INSOMNIA, MAY REPEAT X1 05/28/20 20:00 06/04/20 16:29 DC 06/03/20 20:14 Olanzapine (ZyPREXA ZYDIS) 2.5 mg PRN Q2HR PRN PO PSYCHOSIS 05/29/20 18:00 06/02/20 21:02 Quetiapine Fumarate (SEROquel) 12.5 mg 0900,1300 PO 06/01/20 09:00 06/04/20 16:21 DC 06/04/20 12:59 Sertraline HCl (Zoloft) 25 mg DAILY PO 06/01/20 09:00 06/04/20 09:00 DC 06/04/20 09:42 Mirtazapine (Remeron) 7.5 mg QHS PO 06/01/20 21:45 06/04/20 19:51 Sertraline HCl (Zoloft) 50 mg DAILY PO 06/05/20 09:00 Olanzapine (ZyPREXA) 2.5 mg 0900,1300,1700 PO 06/04/20 17:00 06/04/20 17:00 Trazodone HCl (Desyrel) 50 mg QHS PO 06/04/20 21:00 06/04/20 19:53 Melatonin (Melatonin) 6 mg QHS PO 06/04/20 21:00 06/04/20 19:53 Current Medications Medications (Trade) Dose Ordered Sig/Neftali Route PRN Reason Start Time Stop Time Status Last Admin Dose Admin Olanzapine (ZyPREXA) 2.5 mg 0900,1300,1700 PO 06/04/20 17:00 06/04/20 17:00 Trazodone HCl (Desyrel) 50 mg QHS PO 06/04/20 21:00 06/04/20 19:53 Melatonin (Melatonin) 6 mg QHS PO 06/04/20 21:00 06/04/20 19:53 I have reviewed the current psychotropics carefully including drug interactions. Risk benefit ratio favors no change other than as noted in my dictated progress note. Diagnosis: Problems: (1) Major neurocognitive disorder (2) Impulse control disorder, unspecified (3) Anxiety disorder, unspecified (4) Dementia, vascular, with depression (5) Dementia, vascular, with delusions (6) Dementia in Alzheimer's disease with depression (7) Dementia in Alzheimer's disease with delusions (8) Dementia of the Alzheimer's type with early onset with behavioral disturbance AYLIN VALENCIA MD Jun 04, 2020 21:04
[2020-06-05 05:44] VITALS: BP 128/83
--- NOTE | 2020-06-05 08:22 | PDOC ---
Exam Note: Floyd Note: This note is a late entry for 06/04/2020 covers elements not covered in my initial note. Subjective: The patient was seen face to face in the morning of 06/04/2020 for a treatment team meeting with Samina Andersen, Lilian Parker and Madelaine (social service assistant), Shameka Magana, activity therapy and Mya DE LA GARZA, discussed and reviewed the chart. He slept 6 hours previous night. The patients daughter Cathy and Nicole attended the treatment team meeting. We reviewed the patients history at length, onset of dementia placement at the [facility] Unit at [facility] and his treatment here including psychotropics initiated in progress discussed at length. He frequently puts himself on the floor and then sleeps on the floor but no fall is noted. Review of Systems: No CV, , pulmonary, eye, ENT system symptoms on review. Reliability poor. Mental Status Exam: The patient is oriented to himself. Insight and judgement, recent and remote memory, attention and concentration, fund of knowledge is poor consistent with his diagnosis. Laboratory Data: Reviewed. Impression: Major neurocognitive disorder Alzheimer vascular with delusion, depression, behavioral disturbance. Anxiety disorder unspecified. Impulse control disorder unspecified. Plan: The patients daughter has wondered whether he would do better on sche duled Zyprexa as he felt he had not done well on Seroquel in the past. We will change Seroquel to Zyprexa 2.5 mg 9 a.m., 1 p.m. and 5 p.m. Maintain trazodone 50 mg h.s. p.r.n., may repeat x1 for insomnia. Discontinue the Seroquel. Continue rest psychotropics unchanged. Assessment: Vital Signs/I&O: Vital Signs Date Time Temp Pulse Resp B/P (MAP) Pulse Ox O2 Delivery O2 Flow Rate FiO2 06/05/20 05:44 97.8 84 20 128/83 (98) 98 06/01/20 06:25 Room Air I & O 06/04/20 06/04/20 06/05/20 15:00 23:00 07:00 Intake Total 100 ml 120 ml Balance 100 ml 120 ml Current Medications: Meds: Current Medications Medications (Trade) Dose Ordered Sig/Neftali Route PRN Reason Start Time Stop Time Status Last Admin Dose Admin Acetaminophen (Tylenol) 650 mg PRN Q6HRS PRN PO MILD PAIN / TEMP > 100.3'F 05/27/20 16:30 Multi-Ingredient Ointment (Analgesic [place]) 1 herman PRN QID PRN TP MUSCLE PAIN 05/27/20 16:30 Al Hydroxide/Mg Hydroxide (Mylanta Plus Xs) 15 ml PRN AFTMEALHC PRN PO DYSPEPSIA 05/27/20 16:30 Magnesium Hydroxide (Milk Of Magnesia) 2,400 mg PRN QHS PRN PO CONSTIPATION 05/27/20 16:30 Acetaminophen (Tylenol) 500 mg PRN Q6HRS PRN PO PAIN 05/27/20 18:15 UNV Aspirin (Aspirin Chewable) 81 mg DAILY PO 05/28/20 09:00 06/04/20 09:38 Docusate Sodium (Colace) 100 mg BID PO 05/27/20 21:00 06/04/20 19:51 Donepezil HCl (Aricept) 10 mg HS PO 05/27/20 21:00 05/31/20 16:33 DC 05/30/20 20:39 Fluticasone Propionate (Flonase) 1 spray DAILY NS 05/28/20 09:00 06/04/20 09:00 Memantine (Namenda) 10 mg BID PO 05/27/20 21:00 05/31/20 16:33 DC 05/31/20 08:00 Quetiapine Fumarate (SEROquel) 100 mg QHS PO 05/27/20 21:00 06/04/20 16:21 DC 06/03/20 20:12 Trazodone HCl (Desyrel) 50 mg QHS PO 05/27/20 21:00 05/28/20 11:16 DC 05/27/20 20:02 Cyanocobalamin (Vitamin B-12) 100 mcg DAILY PO 05/28/20 09:00 06/04/20 09:00 Non-Formulary Medication (Ergocalciferol (Vitamin D2) (Vitamin D2)) 1,250 mcg WEEKLY PO 06/03/20 09:00 UNV Fluvoxamine Maleate (Luvox) 50 mg QHS PO 05/27/20 21:00 06/04/20 16:21 DC 06/03/20 20:12 Cetirizine HCl (ZyrTEC) 10 mg DAILY PO 05/28/20 09:00 06/04/20 09:43 Melatonin (Melatonin) 9 mg HS PO 05/27/20 21:00 05/28/20 11:16 DC 05/27/20 20:02 Multivitamins/ Calcium (Thera-M Plus) 1 tab DAILY PO 05/28/20 09:00 06/04/20 09:42 Pantoprazole Sodium (Protonix) 40 mg DAILYAC PO 05/28/20 07:30 06/04/20 09:42 Ondansetron HCl (Zofran Odt) 4 mg PRN Q6HRS PRN PO NAUSEA/VOMITING 05/27/20 19:00 Polyethylene Glycol (miraLAX) 17 gm DAILY PO 05/28/20 09:00 06/04/20 09:00 Vitamin D (Vitamin D3) 50,000 unit WEEKLY PO 05/28/20 09:00 06/04/20 09:00 Melatonin (Melatonin) 6 mg PRN QHS PRN PO INSOMNIA, 1ST CHOICE 05/28/20 11:15 06/04/20 16:30 DC 06/03/20 20:13 Trazodone HCl (Desyrel) 50 mg PRN QHS PRN PO INSOMNIA, MAY REPEAT X1 05/28/20 20:00 06/04/20 16:29 DC 06/03/20 20:14 Olanzapine (ZyPREXA ZYDIS) 2.5 mg PRN Q2HR PRN PO PSYCHOSIS 05/29/20 18:00 06/04/20 22:00 Quetiapine Fumarate (SEROquel) 12.5 mg 0900,1300 PO 06/01/20 09:00 06/04/20 16:21 DC 06/04/20 12:59 Sertraline HCl (Zoloft) 25 mg DAILY PO 06/01/20 09:00 06/04/20 09:00 DC 06/04/20 09:42 Mirtazapine (Remeron) 7.5 mg QHS PO 06/01/20 21:45 06/04/20 19:51 Sertraline HCl (Zoloft) 50 mg DAILY PO 06/05/20 09:00 Olanzapine (ZyPREXA) 2.5 mg 0900,1300,1700 PO 06/04/20 17:00 06/04/20 17:00 Trazodone HCl (Desyrel) 50 mg QHS PO 06/04/20 21:00 06/04/20 19:53 Melatonin (Melatonin) 6 mg QHS PO 06/04/20 21:00 06/04/20 19:53 Current Medications Medications (Trade) Dose Ordered Sig/Neftali Route PRN Reason Start Time Stop Time Status Last Admin Dose Admin Olanzapine (ZyPREXA) 2.5 mg 0900,1300,1700 PO 06/04/20 17:00 06/04/20 17:00 Trazodone HCl (Desyrel) 50 mg QHS PO 06/04/20 21:00 06/04/20 19:53 Melatonin (Melatonin) 6 mg QHS PO 06/04/20 21:00 06/04/20 19:53 I have reviewed the current psychotropics carefully including drug interactions. Risk benefit ratio favors no change other than as noted in my dictated progress note. Diagnosis: Problems: (1) Major neurocognitive disorder (2) Impulse control disorder, unspecified (3) Anxiety disorder, unspecified (4) Dementia, vascular, with depression (5) Dementia, vascular, with delusions (6) Dementia in Alzheimer's disease with depression (7) Dementia in Alzheimer's disease with delusions (8) Dementia of the Alzheimer's type with early onset with behavioral dis turbance AYLIN VALENCIA MD Jun 05, 2020 08:22
[2020-06-05] MEDS: DOCUSATE SODIUM 100 MG CAPSULE PO SCH ×2 (08:48→20:01)
[2020-06-05] MEDS: MULTIVITAMIN with MINERAL TABLET. PO SCH (08:48)
[2020-06-05] MEDS: ASPIRIN CHEWABLE 81 MG TABLET. PO SCH (08:48)
[2020-06-05] MEDS: OLANZapine 2.5 MG TABLET PO SCH ×3 (08:48→16:28)
[2020-06-05] MEDS: POLYETHYLENE GLYCOL 3350 17 GM PACKET. PO SCH (08:48)
[2020-06-05] MEDS: PANTOPRAZOLE 40 MG TABLET. PO SCH (08:48)
[2020-06-05] MEDS: SERTRALINE 50 MG TABLET. PO SCH (08:48)
[2020-06-05] MEDS: CETIRIZINE HCL 10 MG TABLET PO SCH (08:48)
[2020-06-05] MEDS: CYANOCOBALAMIN (VITAMIN B-12) 100 MCG TABLET PO SCH (08:48)
[2020-06-05] MEDS: FLUTICASONE 50MCG/NASAL SPRAY 16GM BOTTLE. NS SCH (08:54)
[2020-06-05 15:33] VITALS: BP 123/83
[2020-06-05] MEDS: MELATONIN 3 MG TABLET PO SCH (20:01)
[2020-06-05] MEDS: traZODone 50 MG TABLET. PO SCH (20:01)
[2020-06-05] MEDS: MIRTAZAPINE 7.5 MG TABLET. PO SCH (20:02)
--- NOTE | 2020-06-05 20:54 | PDOC ---
Exam Note: Floyd Note: Please also refer to the separate dictated note~for this date of service dictated separately.~Patient seen individually. Discussed the patient with Nursing staff reviewed the chart.~Reviewed interim history and current functioning. Reviewed vital signs,~Labs/ Radiology~and current medications noted below. Continue current treatment with the changes noted in the dictated addendum note Assessment: Vital Signs/I&O: Vital Signs Date Time Temp Pulse Resp B/P (MAP) Pulse Ox O2 Delivery O2 Flow Rate FiO2 06/05/20 15:33 97.8 83 17 123/83 (96) 95 06/01/20 06:25 Room Air I & O 06/04/20 06/04/20 06/05/20 14:59 22:59 06:59 Intake Total 100 ml 120 ml Balance 100 ml 120 ml Current Medications: Meds: Current Medications Medications (Trade) Dose Ordered Sig/Neftali Route PRN Reason Start Time Stop Time Status Last Admin Dose Admin Acetaminophen (Tylenol) 650 mg PRN Q6HRS PRN PO MILD PAIN / TEMP > 100.3'F 05/27/20 16:30 Multi-Ingredient Ointment (Analgesic [place]) 1 herman PRN QID PRN TP MUSCLE PAIN 05/27/20 16:30 Al Hydroxide/Mg Hydroxide (Mylanta Plus Xs) 15 ml PRN AFTMEALHC PRN PO DYSPEPSIA 05/27/20 16:30 Magnesium Hydroxide (Milk Of Magnesia) 2,400 mg PRN QHS PRN PO CONSTIPATION 05/27/20 16:30 Acetaminophen (Tylenol) 500 mg PRN Q6HRS PRN PO PAIN 05/27/20 18:15 UNV Aspirin (Aspirin Chewable) 81 mg DAILY PO 05/28/20 09:00 06/05/20 08:48 Docusate Sodium (Colace) 100 mg BID PO 05/27/20 21:00 06/05/20 20:01 Donepezil HCl (Aricept) 10 mg HS PO 05/27/20 21:00 05/31/20 16:33 DC 05/30/20 20:39 Fluticasone Propionate (Flonase) 1 spray DAILY NS 05/28/20 09:00 06/05/20 08:54 Memantine (Namenda) 10 mg BID PO 05/27/20 21:00 05/31/20 16:33 DC 05/31/20 08:00 Quetiapine Fumarate (SEROquel) 100 mg QHS PO 05/27/20 21:00 06/04/20 16:21 DC 06/03/20 20:12 Trazodone HCl (Desyrel) 50 mg QHS PO 05/27/20 21:00 05/28/20 11:16 DC 05/27/20 20:02 Cyanocobalamin (Vitamin B-12) 100 mcg DAILY PO 05/28/20 09:00 06/05/20 08:48 Non-Formulary Medication (Ergocalciferol (Vitamin D2) (Vitamin D2)) 1,250 mcg WEEKLY PO 06/03/20 09:00 UNV Fluvoxamine Maleate (Luvox) 50 mg QHS PO 05/27/20 21:00 06/04/20 16:21 DC 06/03/20 20:12 Cetirizine HCl (ZyrTEC) 10 mg DAILY PO 05/28/20 09:00 06/05/20 08:48 Melatonin (Melatonin) 9 mg HS PO 05/27/20 21:00 05/28/20 11:16 DC 05/27/20 20:02 Multivitamins/ Calcium (Thera-M Plus) 1 tab DAILY PO 05/28/20 09:00 06/05/20 08:48 Pantoprazole Sodium (Protonix) 40 mg DAILYAC PO 05/28/20 07:30 06/05/20 08:48 Ondansetron HCl (Zofran Odt) 4 mg PRN Q6HRS PRN PO NAUSEA/VOMITING 05/27/20 19:00 Polyethylene Glycol (miraLAX) 17 gm DAILY PO 05/28/20 09:00 06/05/20 08:48 Vitamin D (Vitamin D3) 50,000 unit WEEKLY PO 05/28/20 09:00 06/04/20 09:00 Melatonin (Melatonin) 6 mg PRN QHS PRN PO INSOMNIA, 1ST CHOICE 05/28/20 11:15 06/04/20 16:30 DC 06/03/20 20:13 Trazodone HCl (Desyrel) 50 mg PRN QHS PRN PO INSOMNIA, MAY REPEAT X1 05/28/20 20:00 06/04/20 16:29 DC 06/03/20 20:14 Olanzapine (ZyPREXA ZYDIS) 2.5 mg PRN Q2HR PRN PO PSYCHOSIS 05/29/20 18:00 06/04/20 22:00 Quetiapine Fumarate (SEROquel) 12.5 mg 0900,1300 PO 06/01/20 09:00 06/04/20 16:21 DC 06/04/20 12:59 Sertraline HCl (Zoloft) 25 mg DAILY PO 06/01/20 09:00 06/04/20 09:00 DC 06/04/20 09:42 Mirtazapine (Remeron) 7.5 mg QHS PO 06/01/20 21:45 06/05/20 20:02 Sertraline HCl (Zoloft) 50 mg DAILY PO 06/05/20 09:00 06/05/20 08:48 Olanzapine (ZyPREXA) 2.5 mg 0900,1300,1700 PO 06/04/20 17:00 06/05/20 16:28 Trazodone HCl (Desyrel) 50 mg QHS PO 06/04/20 21:00 06/05/20 20:01 Melatonin (Melatonin) 6 mg QHS PO 06/04/20 21:00 06/05/20 20:01 Current Medications Medications (Trade) Dose Ordered Sig/Neftali Route PRN Reason Start Time Stop Time Status Last Admin Dose Admin Sertraline HCl (Zoloft) 50 mg DAILY PO 06/05/20 09:00 06/05/20 08:48 Trazodone HCl (Desyrel) 50 mg QHS PO 06/04/20 21:00 06/05/20 20:01 Melatonin (Melatonin) 6 mg QHS PO 06/04/20 21:00 06/05/20 20:01 I have reviewed the current psychotropics carefully including drug interactions. Risk benefit ratio favors no change other than as noted in my dictated progress note. Diagnosis: Problems: (1) Major neurocognitive disorder (2) Impulse control disorder, unspecified (3) Anxiety disorder, unspecified (4) Dementia, vascular, with depression (5) Dementia, vascular, with delusions (6) Dementia in Alzheimer's disease with depression (7) Dementia in Alzheimer's disease with delusions (8) Dementia of the Alzheimer's type with early onset with behavioral disturbance AYLIN VALENCIA MDb 19, 2021 20:53
[2020-06-06 06:14] VITALS: BP 149/75
--- NOTE | 2020-06-06 07:41 | PDOC ---
Exam Note: Floyd Note: This note is a late entry for 06/05/2020 covers elements not covered in my initial note. Subjective: The patient was seen face to face in the evening of 06/05/2020 with Mya DE LA GARZA, discussed and reviewed the chart. He slept 4-3/4 hours previous night. The patient remains confused, has been putting himself on the floor, oblivious of his surroundings. No fall or injuries. Review of Systems: No CV, , pulmonary, eye, ENT system symptoms on review. Reliability poor. Mental Status Exam: The patient is oriented to himself. Insight and judgement, recent and remote memory, attention and concentration, fund of knowledge is poor consistent with his diagnosis. Laboratory Data: Reviewed. Impression: Major neurocognitive disorder Alzheimer vascular with delusion, depression, behavioral disturbance. Anxiety disorder unspecified. Impulse control disorder unspecified. Plan: No change from initial note. Assessment: Vital Signs/I&O: Vital Signs Date Time Temp Pulse Resp B/P (MAP) Pulse Ox O2 Delivery O2 Flow Rate FiO2 06/06/20 06:14 97.2 79 18 149/75 (99) 96 06/01/20 06:25 Room Air I & O 06/05/20 06/05/20 06/06/20 14:59 22:59 06:59 Intake Total 600 ml 240 ml Balance 600 ml 240 ml Current Medications: Meds: Current Medications Medications (Trade) Dose Ordered Sig/Neftali Route PRN Reason Start Time Stop Time Status Last Admin Dose Admin Acetaminophen (Tylenol) 650 mg PRN Q6HRS PRN PO MILD PAIN / TEMP > 100.3'F 05/27/20 16:30 Multi-Ingredient Ointment (Analgesic [place]) 1 herman PRN QID PRN TP MUSCLE PAIN 05/27/20 16:30 Al Hydroxide/Mg Hydroxide (Mylanta Plus Xs) 15 ml PRN AFTMEALHC PRN PO DYSPEPSIA 05/27/20 16:30 Magnesium Hydroxide (Milk Of Magnesia) 2,400 mg PRN QHS PRN PO CONSTIPATION 05/27/20 16:30 Acetaminophen (Tylenol) 500 mg PRN Q6HRS PRN PO PAIN 05/27/20 18:15 UNV Aspirin (Aspirin Chewable) 81 mg DAILY PO 05/28/20 09:00 06/05/20 08:48 Docusate Sodium (Colace) 100 mg BID PO 05/27/20 21:00 06/05/20 20:01 Donepezil HCl (Aricept) 10 mg HS PO 05/27/20 21:00 05/31/20 16:33 DC 05/30/20 20:39 Fluticasone Propionate (Flonase) 1 spray DAILY NS 05/28/20 09:00 06/05/20 08:54 Memantine (Namenda) 10 mg BID PO 05/27/20 21:00 05/31/20 16:33 DC 05/31/20 08:00 Quetiapine Fumarate (SEROquel) 100 mg QHS PO 05/27/20 21:00 06/04/20 16:21 DC 06/03/20 20:12 Trazodone HCl (Desyrel) 50 mg QHS PO 05/27/20 21:00 05/28/20 11:16 DC 05/27/20 20:02 Cyanocobalamin (Vitamin B-12) 100 mcg DAILY PO 05/28/20 09:00 06/05/20 08:48 Non-Formulary Medication (Ergocalciferol (Vitamin D2) (Vitamin D2)) 1,250 mcg WEEKLY PO 06/03/20 09:00 UNV Fluvoxamine Maleate (Luvox) 50 mg QHS PO 05/27/20 21:00 06/04/20 16:21 DC 06/03/20 20:12 Cetirizine HCl (ZyrTEC) 10 mg DAILY PO 05/28/20 09:00 06/05/20 08:48 Melatonin (Melatonin) 9 mg HS PO 05/27/20 21:00 05/28/20 11:16 DC 05/27/20 20:02 Multivitamins/ Calcium (Thera-M Plus) 1 tab DAILY PO 05/28/20 09:00 06/05/20 08:48 Pantoprazole Sodium (Protonix) 40 mg DAILYAC PO 05/28/20 07:30 06/05/20 08:48 Ondansetron HCl (Zofran Odt) 4 mg PRN Q6HRS PRN PO NAUSEA/VOMITING 05/27/20 19:00 Polyethylene Glycol (miraLAX) 17 gm DAILY PO 05/28/20 09:00 06/05/20 08:48 Vitamin D (Vitamin D3) 50,000 unit WEEKLY PO 05/28/20 09:00 06/04/20 09:00 Melatonin (Melatonin) 6 mg PRN QHS PRN PO INSOMNIA, 1ST CHOICE 05/28/20 11:15 06/04/20 16:30 DC 06/03/20 20:13 Trazodone HCl (Desyrel) 50 mg PRN QHS PRN PO INSOMNIA, MAY REPEAT X1 05/28/20 20:00 06/04/20 16:29 DC 06/03/20 20:14 Olanzapine (ZyPREXA ZYDIS) 2.5 mg PRN Q2HR PRN PO PSYCHOSIS 05/29/20 18:00 06/05/20 22:45 Quetiapine Fumarate (SEROquel) 12.5 mg 0900,1300 PO 06/01/20 09:00 06/04/20 16:21 DC 06/04/20 12:59 Sertraline HCl (Zoloft) 25 mg DAILY PO 06/01/20 09:00 06/04/20 09:00 DC 06/04/20 09:42 Mirtazapine (Remeron) 7.5 mg QHS PO 06/01/20 21:45 06/05/20 20:02 Sertraline HCl (Zoloft) 50 mg DAILY PO 06/05/20 09:00 06/05/20 08:48 Olanzapine (ZyPREXA) 2.5 mg 0900,1300,1700 PO 06/04/20 17:00 06/05/20 16:28 Trazodone HCl (Desyrel) 50 mg QHS PO 06/04/20 21:00 06/05/20 20:01 Melatonin (Melatonin) 6 mg QHS PO 06/04/20 21:00 06/05/20 20:01 Current Medications Medications (Trade) Dose Ordered Sig/Neftali Route PRN Reason Start Time Stop Time Status Last Admin Dose Admin Sertraline HCl (Zoloft) 50 mg DAILY PO 06/05/20 09:00 06/05/20 08:48 I have reviewed the current psychotropics carefully including drug interactions. Risk benefit ratio favors no change other than as noted in my dictated progress note. Diagnosis: Problems: (1) Major neurocognitive disorder (2) Impulse control disorder, unspecified (3) Anxiety disorder, unspecified (4) Dementia, vascular, with depression (5) Dementia, vascular, with delusions (6) Dementia in Alzheimer's disease with depression (7) Dementia in Alzheimer's disease with delusions (8) Dementia of the Alzheimer's type with early onset with behavioral disturbance AYLIN VALENCIA MD Jun 06, 2020 07:41
[2020-06-06] MEDS: POLYETHYLENE GLYCOL 3350 17 GM PACKET. PO SCH (08:26)
[2020-06-06] MEDS: DOCUSATE SODIUM 100 MG CAPSULE PO SCH ×3 (08:26→19:54)
[2020-06-06] MEDS: OLANZapine 2.5 MG TABLET PO SCH ×3 (08:26→16:31)
[2020-06-06] MEDS: SERTRALINE 50 MG TABLET. PO SCH (08:26)
[2020-06-06] MEDS: MULTIVITAMIN with MINERAL TABLET. PO SCH (08:26)
[2020-06-06] MEDS: ASPIRIN CHEWABLE 81 MG TABLET. PO SCH (08:26)
[2020-06-06] MEDS: CETIRIZINE HCL 10 MG TABLET PO SCH (08:26)
[2020-06-06] MEDS: PANTOPRAZOLE 40 MG TABLET. PO SCH (08:26)
[2020-06-06] MEDS: CYANOCOBALAMIN (VITAMIN B-12) 100 MCG TABLET PO SCH (08:27)
[2020-06-06] MEDS: FLUTICASONE 50MCG/NASAL SPRAY 16GM BOTTLE. NS SCH (08:27)
[2020-06-06 15:40] VITALS: BP 138/83
[2020-06-06] MEDS: MIRTAZAPINE 7.5 MG TABLET. PO SCH (19:54)
[2020-06-06] MEDS: MELATONIN 3 MG TABLET PO SCH (19:54)
[2020-06-06] MEDS: traZODone 50 MG TABLET. PO SCH (19:54)
--- NOTE | 2020-06-06 20:56 | PDOC ---
Exam Note: Floyd Note: Please also refer to the separate dictated note~for this date of service dictated separately.~Patient seen individually. Discussed the patient with Nursing staff reviewed the chart.~Reviewed interim history and current functioning. Reviewed vital signs,~Labs/ Radiology~and current medications noted below. Continue current treatment with the changes noted in the dictated addendum note Assessment: Vital Signs/I&O: Vital Signs Date Time Temp Pulse Resp B/P (MAP) Pulse Ox O2 Delivery O2 Flow Rate FiO2 06/06/20 15:40 98.0 86 20 138/83 (101) 96 Room Air I & O 06/05/20 06/05/20 06/06/20 15:00 23:00 07:00 Intake Total 600 ml 240 ml Balance 600 ml 240 ml Current Medications: Meds: Current Medications Medications (Trade) Dose Ordered Sig/Neftali Route PRN Reason Start Time Stop Time Status Last Admin Dose Admin Acetaminophen (Tylenol) 650 mg PRN Q6HRS PRN PO MILD PAIN / TEMP > 100.3'F 05/27/20 16:30 Multi-Ingredient Ointment (Analgesic [place]) 1 herman PRN QID PRN TP MUSCLE PAIN 05/27/20 16:30 Al Hydroxide/Mg Hydroxide (Mylanta Plus Xs) 15 ml PRN AFTMEALHC PRN PO DYSPEPSIA 05/27/20 16:30 Magnesium Hydroxide (Milk Of Magnesia) 2,400 mg PRN QHS PRN PO CONSTIPATION 05/27/20 16:30 Acetaminophen (Tylenol) 500 mg PRN Q6HRS PRN PO PAIN 05/27/20 18:15 UNV Aspirin (Aspirin Chewable) 81 mg DAILY PO 05/28/20 09:00 06/06/20 08:26 Docusate Sodium (Colace) 100 mg BID PO 05/27/20 21:00 06/06/20 19:54 Donepezil HCl (Aricept) 10 mg HS PO 05/27/20 21:00 05/31/20 16:33 DC 05/30/20 20:39 Fluticasone Propionate (Flonase) 1 spray DAILY NS 05/28/20 09:00 06/06/20 08:27 Memantine (Namenda) 10 mg BID PO 05/27/20 21:00 05/31/20 16:33 DC 05/31/20 08:00 Quetiapine Fumarate (SEROquel) 100 mg QHS PO 05/27/20 21:00 06/04/20 16:21 DC 06/03/20 20:12 Trazodone HCl (Desyrel) 50 mg QHS PO 05/27/20 21:00 05/28/20 11:16 DC 05/27/20 20:02 Cyanocobalamin (Vitamin B-12) 100 mcg DAILY PO 05/28/20 09:00 06/06/20 08:27 Non-Formulary Medication (Ergocalciferol (Vitamin D2) (Vitamin D2)) 1,250 mcg WEEKLY PO 06/03/20 09:00 UNV Fluvoxamine Maleate (Luvox) 50 mg QHS PO 05/27/20 21:00 06/04/20 16:21 DC 06/03/20 20:12 Cetirizine HCl (ZyrTEC) 10 mg DAILY PO 05/28/20 09:00 06/06/20 08:26 Melatonin (Melatonin) 9 mg HS PO 05/27/20 21:00 05/28/20 11:16 DC 05/27/20 20:02 Multivitamins/ Calcium (Thera-M Plus) 1 tab DAILY PO 05/28/20 09:00 06/06/20 08:26 Pantoprazole Sodium (Protonix) 40 mg DAILYAC PO 05/28/20 07:30 06/06/20 08:26 Ondansetron HCl (Zofran Odt) 4 mg PRN Q6HRS PRN PO NAUSEA/VOMITING 05/27/20 19:00 Polyethylene Glycol (miraLAX) 17 gm DAILY PO 05/28/20 09:00 06/06/20 08:26 Vitamin D (Vitamin D3) 50,000 unit WEEKLY PO 05/28/20 09:00 06/04/20 09:00 Melatonin (Melatonin) 6 mg PRN QHS PRN PO INSOMNIA, 1ST CHOICE 05/28/20 11:15 06/04/20 16:30 DC 06/03/20 20:13 Trazodone HCl (Desyrel) 50 mg PRN QHS PRN PO INSOMNIA, MAY REPEAT X1 05/28/20 20:00 06/04/20 16:29 DC 06/03/20 20:14 Olanzapine (ZyPREXA ZYDIS) 2.5 mg PRN Q2HR PRN PO PSYCHOSIS 05/29/20 18:00 06/06/20 19:56 Quetiapine Fumarate (SEROquel) 12.5 mg 0900,1300 PO 06/01/20 09:00 06/04/20 16:21 DC 06/04/20 12:59 Sertraline HCl (Zoloft) 25 mg DAILY PO 06/01/20 09:00 06/04/20 09:00 DC 06/04/20 09:42 Mirtazapine (Remeron) 7.5 mg QHS PO 06/01/20 21:45 06/06/20 19:54 Sertraline HCl (Zoloft) 50 mg DAILY PO 06/05/20 09:00 06/07/20 09:00 06/06/20 08:26 Olanzapine (ZyPREXA) 2.5 mg 0900,1300,1700 PO 06/04/20 17:00 06/06/20 16:31 Trazodone HCl (Desyrel) 50 mg QHS PO 06/04/20 21:00 06/06/20 19:54 Melatonin (Melatonin) 6 mg QHS PO 06/04/20 21:00 06/06/20 19:54 Sertraline HCl (Zoloft) 75 mg DAILY PO 06/08/20 09:00 I have reviewed the current psychotropics carefully including drug interactions. Risk benefit ratio favors no change other than as noted in my dictated progress note. Diagnosis: Problems: (1) Major neurocognitive disorder (2) Impulse control disorder, unspecified (3) Anxiety disorder, unspecified (4) Dementia, vascular, with depression (5) Dementia, vascular, with delusions (6) Dementia in Alzheimer's disease with depression (7) Dementia in Alzheimer's disease with delusions (8) Dementia of the Alzheimer's type with early onset with behavioral disturbance AYLIN VALENCIA MD Jun 06, 2020 20:56
[2020-06-07 05:35] VITALS: BP 119/75
[2020-06-07] MEDS: OLANZapine 2.5 MG TABLET PO SCH ×3 (07:50→17:00)
[2020-06-07] MEDS: CETIRIZINE HCL 10 MG TABLET PO SCH (07:50)
[2020-06-07] MEDS: POLYETHYLENE GLYCOL 3350 17 GM PACKET. PO SCH (07:50)
[2020-06-07] MEDS: ASPIRIN CHEWABLE 81 MG TABLET. PO SCH (07:50)
[2020-06-07] MEDS: PANTOPRAZOLE 40 MG TABLET. PO SCH (07:51)
[2020-06-07] MEDS: MULTIVITAMIN with MINERAL TABLET. PO SCH (07:51)
[2020-06-07] MEDS: SERTRALINE 50 MG TABLET. PO SCH (07:51)
[2020-06-07] MEDS: DOCUSATE SODIUM 100 MG CAPSULE PO SCH ×2 (07:51→19:57)
[2020-06-07] MEDS: FLUTICASONE 50MCG/NASAL SPRAY 16GM BOTTLE. NS SCH (07:52)
[2020-06-07] MEDS: CYANOCOBALAMIN (VITAMIN B-12) 100 MCG TABLET PO SCH (07:52)
[2020-06-07 16:10] VITALS: BP 101/59
[2020-06-07] MEDS: MIRTAZAPINE 7.5 MG TABLET. PO SCH (19:57)
[2020-06-07] MEDS: traZODone 50 MG TABLET. PO SCH (19:57)
[2020-06-07] MEDS: MELATONIN 3 MG TABLET PO SCH (19:58)
--- NOTE | 2020-06-07 21:28 | PDOC ---
Exam Note: Floyd Note: Please also refer to the separate dictated note~for this date of service dictated separately.~Patient seen individually. Discussed the patient with Nursing staff reviewed the chart.~Reviewed interim history and current functioning. Reviewed vital signs,~Labs/ Radiology~and current medications noted below. Continue current treatment with the changes noted in the dictated addendum note Assessment: Vital Signs/I&O: Vital Signs Date Time Temp Pulse Resp B/P (MAP) Pulse Ox O2 Delivery O2 Flow Rate FiO2 06/07/20 16:10 97.1 101 20 101/59 (73) 95 Room Air I & O 06/06/20 06/06/20 06/07/20 14:59 22:59 06:59 Intake Total 360 ml 360 ml Balance 360 ml 360 ml Current Medications: I have reviewed the current psychotropics carefully including drug interactions. Risk benefit ratio favors no change other than as noted in my dictated progress note. Diagnosis: Problems: (1) Major neurocognitive disorder (2) Impulse control disorder, unspecified (3) Anxiety disorder, unspecified (4) Dementia, vascular, with depression (5) Dementia, vascular, with delusions (6) Dementia in Alzheimer's disease with depression (7) Dementia in Alzheimer's disease with delusions (8) Dementia of the Alzheimer's type with early onset with behavioral disturbance AYLIN VALENCIA MD Jun 07, 2020 21:27
--- NOTE | 2020-06-07 23:59 | PN ---
DATE: 06/07/2020 PSYCHIATRIC PROGRESS NOTE This note covers elements not covered in my initial note on 06/07/2020. SUBJECTIVE: I met with the patient individually. Discussed with HOLLI Nelson. The patient slept 5-3/4 hours previous night. He remains confused, prefers to lay himself on the floor, received Zyprexa at bedtime, did better with this. REVIEW OF SYSTEMS: No CV, , pulmonary, eye, ENT system symptoms on review. Reliability poor. MENTAL STATUS EXAM: Oriented to himself. Insight, judgment, recent and remote memory, attention, concentration, fund of knowledge poor, consistent with his diagnosis. IMPRESSION: Major neurocognitive disorder, Alzheimer, vascular with delusion, depression, behavioral disturbance; anxiety disorder, unspecified; impulse control disorder, unspecified. Rest unchanged. PLAN: Continue psychotropics from initial note. Adjust further as clinically indicated. AYLIN VALENCIA MD DR: MICHAEL/avis JOB#: [id number] / [id number]
[2020-06-08 06:00] VITALS: BP 130/75
[2020-06-08] MEDS: FLUTICASONE 50MCG/NASAL SPRAY 16GM BOTTLE. NS SCH (08:26)
[2020-06-08] MEDS: MULTIVITAMIN with MINERAL TABLET. PO SCH (08:27)
[2020-06-08] MEDS: OLANZapine 2.5 MG TABLET PO SCH ×3 (08:27→17:00)
[2020-06-08] MEDS: PANTOPRAZOLE 40 MG TABLET. PO SCH (08:27)
[2020-06-08] MEDS: CETIRIZINE HCL 10 MG TABLET PO SCH (08:27)
[2020-06-08] MEDS: ASPIRIN CHEWABLE 81 MG TABLET. PO SCH (08:27)
[2020-06-08] MEDS: SERTRALINE 25 MG TABLET. PO SCH (08:27)
[2020-06-08] MEDS: DOCUSATE SODIUM 100 MG CAPSULE PO SCH (08:28)
[2020-06-08] MEDS: POLYETHYLENE GLYCOL 3350 17 GM PACKET. PO SCH (08:28)
[2020-06-08] MEDS: CYANOCOBALAMIN (VITAMIN B-12) 100 MCG TABLET PO SCH (08:28)
[2020-06-08 15:26] VITALS: BP 117/75
[2020-06-08] MEDS: MELATONIN 3 MG TABLET PO SCH (20:39)
[2020-06-08] MEDS: MIRTAZAPINE 7.5 MG TABLET. PO SCH (20:39)
[2020-06-08] MEDS: traZODone 50 MG TABLET. PO SCH (20:39)
--- NOTE | 2020-06-08 21:54 | PDOC ---
Exam Note: Floyd Note: Please also refer to the separate dictated note~for this date of service dictated separately.~Patient seen individually. Discussed the patient with Nursing staff reviewed the chart.~Reviewed interim history and current functioning. Reviewed vital signs,~Labs/ Radiology~and current medications noted below. Continue current treatment with the changes noted in the dictated addendum note Assessment: Vital Signs/I&O: Vital Signs Date Time Temp Pulse Resp B/P (MAP) Pulse Ox O2 Delivery O2 Flow Rate FiO2 06/08/20 15:26 97.8 68 20 117/75 (89) 93 Room Air I & O 06/07/20 06/07/20 06/08/20 15:00 23:00 07:00 Intake Total 240 ml 120 ml Balance 240 ml 120 ml Current Medications: Meds: Current Medications Medications (Trade) Dose Ordered Sig/Neftali Route PRN Reason Start Time Stop Time Status Last Admin Dose Admin Sertraline HCl (Zoloft) 75 mg DAILY PO 06/08/20 09:00 06/08/20 08:27 I have reviewed the current psychotropics carefully including drug interactions. Risk benefit ratio favors no change other than as noted in my dictated progress note. Diagnosis: Problems: (1) Major neurocognitive disorder (2) Impulse control disorder, unspecified (3) Anxiety disorder, unspecified (4) Dementia, vascular, with depression (5) Dementia, vascular, with delusions (6) Dementia in Alzheimer's disease with depression (7) Dementia in Alzheimer's disease with delusions (8) Dementia of the Alzheimer's type with early onset with behavioral disturbance AYLIN VALENCIA MD Jun 08, 2020 21:54
[2020-06-09 05:21] VITALS: BP 102/66
[2020-06-09 07:19] LABS: ALBUMIN 3.8 g/dL (3.4-5.0); ALBUMIN/GLOBULIN RATIO 1.2 (1.0-1.7); CALCIUM 9.5 mg/dL (8.5-10.1); CREATININE 1.1 mg/dL (0.7-1.3); GFR 67.4; POTASSIUM 4.2 mmol/L (3.5-5.1); TOTAL BILIRUBIN 1.9 mg/dL (0.2-1.0)
[2020-06-09 07:23] LABS: BASO % 1 % (0-3); EOS # 0.1 x10^3/uL (0.0-0.7); EOS % 3 % (0-3); HEMATOCRIT 43.1 % (39.0-53.0); HEMOGLOBIN 14.3 g/dL (13.0-17.5); LYMPH # 1.7 x10^3/uL (1.0-4.8); LYMPH % 31 % (24-48); MEAN CORPUSCULAR HEMOGLOBIN 32 pg (25-35); MEAN CORPUSCULAR HGB CONC 33 g/dL (31-37); MEAN CORPUSCULAR VOLUME 97 fL (79-100); MONO # 0.4 x10^3/uL (0.0-1.1); MONO % 8 % (0-9); NEUT # 3.3 x10^3uL (1.8-7.7); NEUT % 59 % (31-73); PLATELET COUNT 145 x10^3/uL (140-400); RED BLOOD COUNT 4.43 x10^6/uL (4.30-5.70); RED CELL DISTRIBUTION WIDTH 13.9 % (11.5-14.5); WHITE BLOOD COUNT 5.6 x10^3/uL (4.0-11.0)
[2020-06-09] MEDS: PANTOPRAZOLE 40 MG TABLET. PO SCH (07:30)
[2020-06-09] MEDS: ASPIRIN CHEWABLE 81 MG TABLET. PO SCH (08:03)
[2020-06-09] MEDS: POLYETHYLENE GLYCOL 3350 17 GM PACKET. PO SCH (08:03)
[2020-06-09] MEDS: CYANOCOBALAMIN (VITAMIN B-12) 100 MCG TABLET PO SCH (08:03)
[2020-06-09] MEDS: CETIRIZINE HCL 10 MG TABLET PO SCH (08:03)
[2020-06-09] MEDS: FLUTICASONE 50MCG/NASAL SPRAY 16GM BOTTLE. NS SCH (08:03)
[2020-06-09] MEDS: SERTRALINE 25 MG TABLET. PO SCH (08:04)
[2020-06-09] MEDS: OLANZapine 2.5 MG TABLET PO SCH ×3 (08:04→18:03)
[2020-06-09] MEDS: MULTIVITAMIN with MINERAL TABLET. PO SCH (08:04)
--- NOTE | 2020-06-09 08:10 | PDOC ---
Exam Note: Floyd Note: This note is a late entry for 06/06/2020 covers elements not covered in my initial note. Subjective: The patient was seen face to face in the evening of 06/06/2020 with Mya DE LA GARZA, discussed and reviewed the chart. He slept 5 hours previous night. The patient remains confused. Often puts himself on the floor, oblivious of what he is doing. Review of Systems: No CV, , pulmonary, eye, ENT system symptoms on review. Reliability poor. Mental Status Exam: The patient is oriented to himself. Insight and judgement, recent and remote memory, attention and concentration, fund of knowledge is poor consistent with his diagnosis. Laboratory Data: Reviewed. Impression: Major neurocognitive disorder Alzheimer vascular with delusion, depression, behavioral disturbance. Anxiety disorder unspecified. Impulse control disorder unspecified. Plan: No change from initial note but after he has been on Zoloft 50 mg a day for 3 days, we will increase to 75 mg a day. Maintain rest unchanged. Luvox has been discontinued. Zyprexa is scheduled. Trazodone is p.r.n. Assessment: Vital Signs/I&O: Vital Signs Date Time Temp Pulse Resp B/P (MAP) Pulse Ox O2 Delivery O2 Flow Rate FiO2 06/09/20 05:21 97.4 68 16 102/66 (78) 93 06/08/20 15:26 Room Air I & O 06/08/20 06/08/20 06/09/20 15:00 23:00 07:00 Intake Total 840 ml 600 ml Balance 840 ml 600 ml Labs: Laboratory Tests Test 06/09/20 06:39 White Blood Count 5.6 x10^3/uL (4.0-11.0) Red Blood Count 4.43 x10^6/uL (4.30-5.70) Hemoglobin 14.3 g/dL (13.0-17.5) Hematocrit 43.1 % (39.0-53.0) Mean Corpuscular Volume 97 fL (79-100) Mean Corpuscular Hemoglobin 32 pg (25-35) Mean Corpuscular Hemoglobin Concent 33 g/dL (31-37) Red Cell Distribution Width 13.9 % (11.5-14.5) Platelet Count 145 x10^3/uL (140-400) Neutrophils (%) (Auto) 59 % (31-73) Lymphocytes (%) (Auto) 31 % (24-48) Monocytes (%) (Auto) 8 % (0-9) Eosinophils (%) (Auto) 3 % (0-3) Basophils (%) (Auto) 1 % (0-3) Neutrophils # (Auto) 3.3 x10^3uL (1.8-7.7) Lymphocytes # (Auto) 1.7 x10^3/uL (1.0-4.8) Monocytes # (Auto) 0.4 x10^3/uL (0.0-1.1) Eosinophils # (Auto) 0.1 x10^3/uL (0.0-0.7) Basophils # (Auto) 0.0 x10^3/uL (0.0-0.2) Current Medications: Meds: Laboratory Tests Test 06/09/20 06:39 White Blood Count 5.6 x10^3/uL Red Blood Count 4.43 x10^6/uL Hemoglobin 14.3 g/dL Hematocrit 43.1 % Mean Corpuscular Volume 97 fL Mean Corpuscular Hemoglobin 32 pg Mean Corpuscular Hemoglobin Concent 33 g/dL Red Cell Distribution Width 13.9 % Platelet Count 145 x10^3/uL Neutrophils (%) (Auto) 59 % Lymphocytes (%) (Auto) 31 % Monocytes (%) (Auto) 8 % Eosinophils (%) (Auto) 3 % Basophils (%) (Auto) 1 % Neutrophils # (Auto) 3.3 x10^3uL Lymphocytes # (Auto) 1.7 x10^3/uL Monocytes # (Auto) 0.4 x10^3/uL Eosinophils # (Auto) 0.1 x10^3/uL Basophils # (Auto) 0.0 x10^3/uL Current Medications Medications (Trade) Dose Ordered Sig/Neftali Route PRN Reason Start Time Stop Time Status Last Admin Dose Admin Acetaminophen (Tylenol) 650 mg PRN Q6HRS PRN PO MILD PAIN / TEMP > 100.3'F 05/27/20 16:30 Multi-Ingredient Ointment (Analgesic [place]) 1 herman PRN QID PRN TP MUSCLE PAIN 05/27/20 16:30 Al Hydroxide/Mg Hydroxide (Mylanta Plus Xs) 15 ml PRN AFTMEALHC PRN PO DYSPEPSIA 05/27/20 16:30 Magnesium Hydroxide (Milk Of Magnesia) 2,400 mg PRN QHS PRN PO CONSTIPATION 05/27/20 16:30 Acetaminophen (Tylenol) 500 mg PRN Q6HRS PRN PO PAIN 05/27/20 18:15 UNV Aspirin (Aspirin Chewable) 81 mg DAILY PO 05/28/20 09:00 06/09/20 08:03 Docusate Sodium (Colace) 100 mg BID PO 05/27/20 21:00 06/08/20 12:12 DC 06/07/20 19:57 Donepezil HCl (Aricept) 10 mg HS PO 05/27/20 21:00 05/31/20 16:33 DC 05/30/20 20:39 Fluticasone Propionate (Flonase) 1 spray DAILY NS 05/28/20 09:00 06/09/20 08:03 Memantine (Namenda) 10 mg BID PO 05/27/20 21:00 05/31/20 16:33 DC 05/31/20 08:00 Quetiapine Fumarate (SEROquel) 100 mg QHS PO 05/27/20 21:00 06/04/20 16:21 DC 06/03/20 20:12 Trazodone HCl (Desyrel) 50 mg QHS PO 05/27/20 21:00 05/28/20 11:16 DC 05/27/20 20:02 Cyanocobalamin (Vitamin B-12) 100 mcg DAILY PO 05/28/20 09:00 06/09/20 08:03 Non-Formulary Medication (Ergocalciferol (Vitamin D2) (Vitamin D2)) 1,250 mcg WEEKLY PO 06/03/20 09:00 UNV Fluvoxamine Maleate (Luvox) 50 mg QHS PO 05/27/20 21:00 06/04/20 16:21 DC 06/03/20 20:12 Cetirizine HCl (ZyrTEC) 10 mg DAILY PO 05/28/20 09:00 06/09/20 08:03 Melatonin (Melatonin) 9 mg HS PO 05/27/20 21:00 05/28/20 11:16 DC 05/27/20 20:02 Multivitamins/ Calcium (Thera-M Plus) 1 tab DAILY PO 05/28/20 09:00 06/09/20 08:04 Pantoprazole Sodium (Protonix) 40 mg DAILYAC PO 05/28/20 07:30 06/09/20 07:30 Ondansetron HCl (Zofran Odt) 4 mg PRN Q6HRS PRN PO NAUSEA/VOMITING 05/27/20 19:00 Polyethylene Glycol (miraLAX) 17 gm DAILY PO 05/28/20 09:00 06/09/20 08:03 Vitamin D (Vitamin D3) 50,000 unit WEEKLY PO 05/28/20 09:00 06/04/20 09:00 Melatonin (Melatonin) 6 mg PRN QHS PRN PO INSOMNIA, 1ST CHOICE 05/28/20 11:15 06/04/20 16:30 DC 06/03/20 20:13 Trazodone HCl (Desyrel) 50 mg PRN QHS PRN PO INSOMNIA, MAY REPEAT X1 05/28/20 20:00 06/04/20 16:29 DC 06/03/20 20:14 Olanzapine (ZyPREXA ZYDIS) 2.5 mg PRN Q2HR PRN PO PSYCHOSIS 05/29/20 18:00 06/08/20 20:41 Quetiapine Fumarate (SEROquel) 12.5 mg 0900,1300 PO 06/01/20 09:00 06/04/20 16:21 DC 06/04/20 12:59 Sertraline HCl (Zoloft) 25 mg DAILY PO 06/01/20 09:00 06/04/20 09:00 DC 06/04/20 09:42 Mirtazapine (Remeron) 7.5 mg QHS PO 06/01/20 21:45 06/08/20 20:39 Sertraline HCl (Zoloft) 50 mg DAILY PO 06/05/20 09:00 06/07/20 09:00 DC 06/07/20 07:51 Olanzapine (ZyPREXA) 2.5 mg 0900,1300,1700 PO 06/04/20 17:00 06/09/20 08:04 Trazodone HCl (Desyrel) 50 mg QHS PO 06/04/20 21:00 06/08/20 20:39 Melatonin (Melatonin) 6 mg QHS PO 06/04/20 21:00 06/08/20 20:39 Sertraline HCl (Zoloft) 75 mg DAILY PO 06/08/20 09:00 06/09/20 08:04 Current Medications Medications (Trade) Dose Ordered Sig/Neftali Route PRN Reason Start Time Stop Time Status Last Admin Dose Admin Sertraline HCl (Zoloft) 75 mg DAILY PO 06/08/20 09:00 06/09/20 08:04 I have reviewed the current psychotropics carefully including drug interactions. Risk benefit ratio favors no change other than as noted in my dictated progress note. Diagnosis: Problems: (1) Major neurocognitive disorder (2) Impulse control disorder, unspecified (3) Anxiety disorder, unspecified (4) Dementia, vascular, with depression (5) Dementia, vascular, with delusions (6) Dementia in Alzheimer's disease with depression (7) Dementia in Alzheimer's disease with delusions (8) Dementia of the Alzheimer's type with early onset with behavioral disturbance AYLIN VALENCIA MD Jun 09, 2020 08:10
[2020-06-09 15:44] VITALS: BP 125/74
[2020-06-09] MEDS ORDERED: IV DEXTROSE 5% 1,000 ML IV SCH (20:10)
[2020-06-09] MEDS: traZODone 50 MG TABLET. PO SCH (20:31)
[2020-06-09] MEDS: MELATONIN 3 MG TABLET PO SCH (20:31)
[2020-06-09] MEDS: MIRTAZAPINE 7.5 MG TABLET. PO SCH (20:31)
--- NOTE | 2020-06-09 21:08 | PDOC ---
Exam Note: Floyd Note: Please also refer to the separate dictated note~for this date of service dictated separately.~Patient seen individually. Discussed the patient with Nursing staff reviewed the chart.~Reviewed interim history and current functioning. Reviewed vital signs,~Labs/ Radiology~and current medications noted below. Continue current treatment with the changes noted in the dictated addendum note Assessment: Vital Signs/I&O: Vital Signs Date Time Temp Pulse Resp B/P (MAP) Pulse Ox O2 Delivery O2 Flow Rate FiO2 06/09/20 15:44 97.5 70 18 125/74 (91) 95 06/08/20 15:26 Room Air I & O 06/08/20 06/08/20 06/09/20 15:00 23:00 07:00 Intake Total 840 ml 600 ml Balance 840 ml 600 ml Labs: Laboratory Tests Test 06/09/20 06:39 White Blood Count 5.6 x10^3/uL (4.0-11.0) Red Blood Count 4.43 x10^6/uL (4.30-5.70) Hemoglobin 14.3 g/dL (13.0-17.5) Hematocrit 43.1 % (39.0-53.0) Mean Corpuscular Volume 97 fL (79-100) Mean Corpuscular Hemoglobin 32 pg (25-35) Mean Corpuscular Hemoglobin Concent 33 g/dL (31-37) Red Cell Distribution Width 13.9 % (11.5-14.5) Platelet Count 145 x10^3/uL (140-400) Neutrophils (%) (Auto) 59 % (31-73) Lymphocytes (%) (Auto) 31 % (24-48) Monocytes (%) (Auto) 8 % (0-9) Eosinophils (%) (Auto) 3 % (0-3) Basophils (%) (Auto) 1 % (0-3) Neutrophils # (Auto) 3.3 x10^3uL (1.8-7.7) Lymphocytes # (Auto) 1.7 x10^3/uL (1.0-4.8) Monocytes # (Auto) 0.4 x10^3/uL (0.0-1.1) Eosinophils # (Auto) 0.1 x10^3/uL (0.0-0.7) Basophils # (Auto) 0.0 x10^3/uL (0.0-0.2) Sodium Level 151 mmol/L (136-145) H Potassium Level 4.2 mmol/L (3.5-5.1) Chloride Level 113 mmol/L (98-107) H Carbon Dioxide Level 30 mmol/L (21-32) Anion Gap 8 (6-14) Blood Urea Nitrogen 28 mg/dL (8-26) H Creatinine 1.1 mg/dL (0.7-1.3) Estimated GFR (Cockcroft-Gault) 67.4 BUN/Creatinine Ratio 25 (6-20) H Glucose Level 109 mg/dL (70-99) H Calcium Level 9.5 mg/dL (8.5-10.1) Total Bilirubin 1.9 mg/dL (0.2-1.0) H Aspartate Amino Transferase (AST) 25 U/L (15-37) Alanine Aminotransferase (ALT) 31 U/L (16-63) Alkaline Phosphatase 88 U/L (46-116) Total Protein 7.0 g/dL (6.4-8.2) Albumin 3.8 g/dL (3.4-5.0) Albumin/Globulin Ratio 1.2 (1.0-1.7) Current Medications: Meds: Laboratory Tests Test 06/09/20 06:39 White Blood Count 5.6 x10^3/uL Red Blood Count 4.43 x10^6/uL Hemoglobin 14.3 g/dL Hematocrit 43.1 % Mean Corpuscular Volume 97 fL Mean Corpuscular Hemoglobin 32 pg Mean Corpuscular Hemoglobin Concent 33 g/dL Red Cell Distribution Width 13.9 % Platelet Count 145 x10^3/uL Neutrophils (%) (Auto) 59 % Lymphocytes (%) (Auto) 31 % Monocytes (%) (Auto) 8 % Eosinophils (%) (Auto) 3 % Basophils (%) (Auto) 1 % Neutrophils # (Auto) 3.3 x10^3uL Lymphocytes # (Auto) 1.7 x10^3/uL Monocytes # (Auto) 0.4 x10^3/uL Eosinophils # (Auto) 0.1 x10^3/uL Basophils # (Auto) 0.0 x10^3/uL Sodium Level 151 mmol/L Potassium Level 4.2 mmol/L Chloride Level 113 mmol/L Carbon Dioxide Level 30 mmol/L Anion Gap 8 Blood Urea Nitrogen 28 mg/dL Creatinine 1.1 mg/dL Estimated GFR (Cockcroft-Gault) 67.4 BUN/Creatinine Ratio 25 Glucose Level 109 mg/dL Calcium Level 9.5 mg/dL Total Bilirubin 1.9 mg/dL Aspartate Amino Transf (AST/SGOT) 25 U/L Alanine Aminotransferase (ALT/SGPT) 31 U/L Alkaline Phosphatase 88 U/L Total Protein 7.0 g/dL Albumin 3.8 g/dL Albumin/Globulin Ratio 1.2 Current Medications Medications (Trade) Dose Ordered Sig/Neftali Route PRN Reason Start Time Stop Time Status Last Admin Dose Admin Acetaminophen (Tylenol) 650 mg PRN Q6HRS PRN PO MILD PAIN / TEMP > 100.3'F 05/27/20 16:30 Multi-Ingredient Ointment (Analgesic [place]) 1 herman PRN QID PRN TP MUSCLE PAIN 05/27/20 16:30 Al Hydroxide/Mg Hydroxide (Mylanta Plus Xs) 15 ml PRN AFTMEALHC PRN PO DYSPEPSIA 05/27/20 16:30 Magnesium Hydroxide (Milk Of Magnesia) 2,400 mg PRN QHS PRN PO CONSTIPATION 05/27/20 16:30 Acetaminophen (Tylenol) 500 mg PRN Q6HRS PRN PO PAIN 05/27/20 18:15 UNV Aspirin (Aspirin Chewable) 81 mg DAILY PO 05/28/20 09:00 06/09/20 08:03 Docusate Sodium (Colace) 100 mg BID PO 05/27/20 21:00 06/08/20 12:12 DC 06/07/20 19:57 Donepezil HCl (Aricept) 10 mg HS PO 05/27/20 21:00 05/31/20 16:33 DC 05/30/20 20:39 Fluticasone Propionate (Flonase) 1 spray DAILY NS 05/28/20 09:00 06/09/20 08:03 Memantine (Namenda) 10 mg BID PO 05/27/20 21:00 05/31/20 16:33 DC 05/31/20 08:00 Quetiapine Fumarate (SEROquel) 100 mg QHS PO 05/27/20 21:00 06/04/20 16:21 DC 06/03/20 20:12 Trazodone HCl (Desyrel) 50 mg QHS PO 05/27/20 21:00 05/28/20 11:16 DC 05/27/20 20:02 Cyanocobalamin (Vitamin B-12) 100 mcg DAILY PO 05/28/20 09:00 06/09/20 08:03 Non-Formulary Medication (Ergocalciferol (Vitamin D2) (Vitamin D2)) 1,250 mcg WEEKLY PO 06/03/20 09:00 UNV Fluvoxamine Maleate (Luvox) 50 mg QHS PO 05/27/20 21:00 06/04/20 16:21 DC 06/03/20 20:12 Cetirizine HCl (ZyrTEC) 10 mg DAILY PO 05/28/20 09:00 06/09/20 08:03 Melatonin (Melatonin) 9 mg HS PO 05/27/20 21:00 05/28/20 11:16 DC 05/27/20 20:02 Multivitamins/ Calcium (Thera-M Plus) 1 tab DAILY PO 05/28/20 09:00 06/09/20 08:04 Pantoprazole Sodium (Protonix) 40 mg DAILYAC PO 05/28/20 07:30 06/09/20 07:30 Ondansetron HCl (Zofran Odt) 4 mg PRN Q6HRS PRN PO NAUSEA/VOMITING 05/27/20 19:00 Polyethylene Glycol (miraLAX) 17 gm DAILY PO 05/28/20 09:00 06/09/20 08:03 Vitamin D (Vitamin D3) 50,000 unit WEEKLY PO 05/28/20 09:00 06/04/20 09:00 Melatonin (Melatonin) 6 mg PRN QHS PRN PO INSOMNIA, 1ST CHOICE 05/28/20 11:15 06/04/20 16:30 DC 06/03/20 20:13 Trazodone HCl (Desyrel) 50 mg PRN QHS PRN PO INSOMNIA, MAY REPEAT X1 05/28/20 20:00 06/04/20 16:29 DC 06/03/20 20:14 Olanzapine (ZyPREXA ZYDIS) 2.5 mg PRN Q2HR PRN PO PSYCHOSIS 05/29/20 18:00 06/08/20 20:41 Quetiapine Fumarate (SEROquel) 12.5 mg 0900,1300 PO 06/01/20 09:00 06/04/20 16:21 DC 06/04/20 12:59 Sertraline HCl (Zoloft) 25 mg DAILY PO 06/01/20 09:00 06/04/20 09:00 DC 06/04/20 09:42 Mirtazapine (Remeron) 7.5 mg QHS PO 06/01/20 21:45 06/09/20 20:31 Sertraline HCl (Zoloft) 50 mg DAILY PO 06/05/20 09:00 06/07/20 09:00 DC 06/07/20 07:51 Olanzapine (ZyPREXA) 2.5 mg 0900,1300,1700 PO 06/04/20 17:00 06/09/20 18:03 Trazodone HCl (Desyrel) 50 mg QHS PO 06/04/20 21:00 06/09/20 20:31 Melatonin (Melatonin) 6 mg QHS PO 06/04/20 21:00 06/09/20 20:31 Sertraline HCl (Zoloft) 75 mg DAILY PO 06/08/20 09:00 06/09/20 08:04 Dextrose 1,000 ml @ 100 mls/hr Q10H IV 06/09/20 20:10 I have reviewed the current psychotropics carefully including drug interactions. Risk benefit ratio favors no change other than as noted in my dictated progress note. Diagnosis: Problems: (1) Major neurocognitive disorder (2) Impulse control disorder, unspecified (3) Anxiety disorder, unspecified (4) Dementia, vascular, with depression (5) Dementia, vascular, with delusions (6) Dementia in Alzheimer's disease with depression (7) Dementia in Alzheimer's disease with delusions (8) Dementia of the Alzheimer's type with early onset with behavioral disturbance AYLIN VALENCIA MD Jun 09, 2020 21:08
[2020-06-10 06:05] VITALS: BP 109/73
--- NOTE | 2020-06-10 08:08 | PDOC ---
Exam Note: Floyd Note: This note is a late entry for 06/08/2020 covers elements not covered in my initial note. Subjective: The patient was seen face to face in the evening of 06/08/2020 with Mya DE LA GARZA, discussed and reviewed the chart. He slept 6 hours previous night. The patient remains confused, wandering, redirectable, lying himself on the floor but no falls noted. Review of Systems: No CV, , pulmonary, eye, ENT system symptoms on review. Reliability poor. Mental Status Exam: The patient is oriented to himself. Insight and judgement, recent and remote memory, attention and concentration, fund of knowledge is poor consistent with his diagnosis. Laboratory Data: Reviewed. Impression: Major neurocognitive disorder Alzheimer vascular with delusion, depression, behavioral disturbance. Anxiety disorder unspecified. Impulse control disorder unspecified. Plan: No change from initial note. Assessment: Vital Signs/I&O: Vital Signs Date Time Temp Pulse Resp B/P (MAP) Pulse Ox O2 Delivery O2 Flow Rate FiO2 06/10/20 06:05 97.2 59 20 109/73 (85) 95 06/08/20 15:26 Room Air I & O 06/09/20 06/09/20 06/10/20 15:00 23:00 07:00 Intake Total 960 ml 480 ml Balance 960 ml 480 ml Current Medications: Meds: Current Medications Medications (Trade) Dose Ordered Sig/Neftali Route PRN Reason Start Time Stop Time Status Last Admin Dose Admin Dextrose 1,000 ml @ 100 mls/hr Q10H IV 06/09/20 20:10 06/10/20 06:52 DC 06/09/20 23:00 I have reviewed the current psychotropics carefully including drug interactions. Risk benefit ratio favors no change other than as noted in my dictated progress note. Diagnosis: Problems: (1) Major neurocognitive disorder (2) Impulse control disorder, unspecified (3) Anxiety disorder, unspecified (4) Dementia, vascular, with depression (5) Dementia, vascular, with delusions (6) Dementia in Alzheimer's disease with depression (7) Dementia in Alzheimer's disease with delusions (8) Dementia of the Alzheimer's type with early onset with behavioral disturbance AYLIN VALENCIA MD Jun 10, 2020 08:08
[2020-06-10 08:28] LABS: CALCIUM 9.4 mg/dL (8.5-10.1); CREATININE 1.1 mg/dL (0.7-1.3); GFR 67.4; POTASSIUM 4.3 mmol/L (3.5-5.1)
--- NOTE | 2020-06-10 08:48 | PDOC ---
Exam Note: Floyd Note: This note is a late entry for 06/09/2020 covers elements not covered in my initial note. Subjective: The patient was seen face to face in the evening of 06/09/2020 with Oxana DE LA GARZA, discussed and reviewed the chart. He slept 5-1/2 hours previous night. He frequently puts himself on the floor. Security reviewed the tapes since it was a hard sit on the floor for him but he in fact did not fall. He just sat too hard and put his head against the nursing wall creating noise. No p.r.n.s noted. He is mumbling, confused. Review of Systems: No CV, , pulmonary, eye, ENT system symptoms on review. Reliability poor. Mental Status Exam: The patient is oriented to himself. Insight and judgement, recent and remote memory, attention and concentration, fund of knowledge is poor consistent with his diagnosis. Laboratory Data: Reviewed. Impression: Major neurocognitive disorder Alzheimer vascular with delusion, depression, behavioral disturbance. Anxiety disorder unspecified. Impulse control disorder unspecified. Plan: No change from initial note. Assessment: Vital Signs/I&O: Vital Signs Date Time Temp Pulse Resp B/P (MAP) Pulse Ox O2 Delivery O2 Flow Rate FiO2 06/10/20 06:05 97.2 59 20 109/73 (85) 95 06/08/20 15:26 Room Air I & O 06/09/20 06/09/20 06/10/20 15:00 23:00 07:00 Intake Total 960 ml 480 ml Balance 960 ml 480 ml Labs: Laboratory Tests Test 06/10/20 08:02 Sodium Level 144 mmol/L (136-145) Potassium Level 4.3 mmol/L (3.5-5.1) Chloride Level 108 mmol/L (98-107) H Carbon Dioxide Level 27 mmol/L (21-32) Anion Gap 9 (6-14) Blood Urea Nitrogen 26 mg/dL (8-26) Creatinine 1.1 mg/dL (0.7-1.3) Estimated GFR (Cockcroft-Gault) 67.4 Glucose Level 111 mg/dL (70-99) H Calcium Level 9.4 mg/dL (8.5-10.1) Current Medications: Meds: Laboratory Tests Test 06/10/20 08:02 Sodium Level 144 mmol/L Potassium Level 4.3 mmol/L Chloride Level 108 mmol/L Carbon Dioxide Level 27 mmol/L Anion Gap 9 Blood Urea Nitrogen 26 mg/dL Creatinine 1.1 mg/dL Estimated GFR (Cockcroft-Gault) 67.4 Glucose Level 111 mg/dL Calcium Level 9.4 mg/dL Current Medications Medications (Trade) Dose Ordered Sig/Neftali Route PRN Reason Start Time Stop Time Status Last Admin Dose Admin Acetaminophen (Tylenol) 650 mg PRN Q6HRS PRN PO MILD PAIN / TEMP > 100.3'F 05/27/20 16:30 Multi-Ingredient Ointment (Analgesic [place]) 1 herman PRN QID PRN TP MUSCLE PAIN 05/27/20 16:30 Al Hydroxide/Mg Hydroxide (Mylanta Plus Xs) 15 ml PRN AFTMEALHC PRN PO DYSPEPSIA 05/27/20 16:30 Magnesium Hydroxide (Milk Of Magnesia) 2,400 mg PRN QHS PRN PO CONSTIPATION 05/27/20 16:30 Acetaminophen (Tylenol) 500 mg PRN Q6HRS PRN PO PAIN 05/27/20 18:15 UNV Aspirin (Aspirin Chewable) 81 mg DAILY PO 05/28/20 09:00 06/09/20 08:03 Docusate Sodium (Colace) 100 mg BID PO 05/27/20 21:00 06/08/20 12:12 DC 06/07/20 19:57 Donepezil HCl (Aricept) 10 mg HS PO 05/27/20 21:00 05/31/20 16:33 DC 05/30/20 20:39 Fluticasone Propionate (Flonase) 1 spray DAILY NS 05/28/20 09:00 06/09/20 08:03 Memantine (Namenda) 10 mg BID PO 05/27/20 21:00 05/31/20 16:33 DC 05/31/20 08:00 Quetiapine Fumarate (SEROquel) 100 mg QHS PO 05/27/20 21:00 06/04/20 16:21 DC 06/03/20 20:12 Trazodone HCl (Desyrel) 50 mg QHS PO 05/27/20 21:00 05/28/20 11:16 DC 05/27/20 20:02 Cyanocobalamin (Vitamin B-12) 100 mcg DAILY PO 05/28/20 09:00 06/09/20 08:03 Non-Formulary Medication (Ergocalciferol (Vitamin D2) (Vitamin D2)) 1,250 mcg WEEKLY PO 06/03/20 09:00 UNV Fluvoxamine Maleate (Luvox) 50 mg QHS PO 05/27/20 21:00 06/04/20 16:21 DC 06/03/20 20:12 Cetirizine HCl (ZyrTEC) 10 mg DAILY PO 05/28/20 09:00 06/09/20 08:03 Melatonin (Melatonin) 9 mg HS PO 05/27/20 21:00 05/28/20 11:16 DC 05/27/20 20:02 Multivitamins/ Calcium (Thera-M Plus) 1 tab DAILY PO 05/28/20 09:00 06/09/20 08:04 Pantoprazole Sodium (Protonix) 40 mg DAILYAC PO 05/28/20 07:30 06/09/20 07:30 Ondansetron HCl (Zofran Odt) 4 mg PRN Q6HRS PRN PO NAUSEA/VOMITING 05/27/20 19:00 Polyethylene Glycol (miraLAX) 17 gm DAILY PO 05/28/20 09:00 06/09/20 08:03 Vitamin D (Vitamin D3) 50,000 unit WEEKLY PO 05/28/20 09:00 06/04/20 09:00 Melatonin (Melatonin) 6 mg PRN QHS PRN PO INSOMNIA, 1ST CHOICE 05/28/20 11:15 06/04/20 16:30 DC 06/03/20 20:13 Trazodone HCl (Desyrel) 50 mg PRN QHS PRN PO INSOMNIA, MAY REPEAT X1 05/28/20 20:00 06/04/20 16:29 DC 06/03/20 20:14 Olanzapine (ZyPREXA ZYDIS) 2.5 mg PRN Q2HR PRN PO PSYCHOSIS 05/29/20 18:00 06/08/20 20:41 Quetiapine Fumarate (SEROquel) 12.5 mg 0900,1300 PO 06/01/20 09:00 06/04/20 16:21 DC 06/04/20 12:59 Sertraline HCl (Zoloft) 25 mg DAILY PO 06/01/20 09:00 06/04/20 09:00 DC 06/04/20 09:42 Mirtazapine (Remeron) 7.5 mg QHS PO 06/01/20 21:45 06/09/20 20:31 Sertraline HCl (Zoloft) 50 mg DAILY PO 06/05/20 09:00 06/07/20 09:00 DC 06/07/20 07:51 Olanzapine (ZyPREXA) 2.5 mg 0900,1300,1700 PO 06/04/20 17:00 06/09/20 18:03 Trazodone HCl (Desyrel) 50 mg QHS PO 06/04/20 21:00 06/09/20 20:31 Melatonin (Melatonin) 6 mg QHS PO 06/04/20 21:00 06/09/20 20:31 Sertraline HCl (Zoloft) 75 mg DAILY PO 06/08/20 09:00 06/09/20 08:04 Dextrose 1,000 ml @ 100 mls/hr Q10H IV 06/09/20 20:10 06/10/20 06:52 DC 06/09/20 23:00 Current Medications Medications (Trade) Dose Ordered Sig/Neftali Route PRN Reason Start Time Stop Time Status Last Admin Dose Admin Dextrose 1,000 ml @ 100 mls/hr Q10H IV 06/09/20 20:10 06/10/20 06:52 DC 06/09/20 23:00 I have reviewed the current psychotropics carefully including drug interactions. Risk benefit ratio favors no change other than as noted in my dictated progress note. Diagnosis: Problems: (1) Major neurocognitive disorder (2) Impulse control disorder, unspecified (3) Anxiety disorder, unspecified (4) Dementia, vascular, with depression (5) Dementia, vascular, with delusions (6) Dementia in Alzheimer's disease with depression (7) Dementia in Alzheimer's disease with delusions (8) Dementia of the Alzheimer's type with early onset with behavioral disturbance AYLIN VALENCIA MD Jun 10, 2020 08:47
[2020-06-10] MEDS: CETIRIZINE HCL 10 MG TABLET PO SCH (09:44)
[2020-06-10] MEDS: SERTRALINE 25 MG TABLET. PO SCH (09:44)
[2020-06-10] MEDS: OLANZapine 2.5 MG TABLET PO SCH ×3 (09:44→17:37)
[2020-06-10] MEDS: ASPIRIN CHEWABLE 81 MG TABLET. PO SCH (09:44)
[2020-06-10] MEDS: PANTOPRAZOLE 40 MG TABLET. PO SCH (09:44)
[2020-06-10] MEDS: MULTIVITAMIN with MINERAL TABLET. PO SCH (09:44)
[2020-06-10] MEDS: CYANOCOBALAMIN (VITAMIN B-12) 100 MCG TABLET PO SCH (09:45)
[2020-06-10] MEDS: POLYETHYLENE GLYCOL 3350 17 GM PACKET. PO SCH (09:45)
[2020-06-10] MEDS: FLUTICASONE 50MCG/NASAL SPRAY 16GM BOTTLE. NS SCH (09:45)
[2020-06-10 16:04] VITALS: BP 117/81
[2020-06-10] MEDS: MIRTAZAPINE 7.5 MG TABLET. PO SCH (20:23)
[2020-06-10] MEDS: MELATONIN 3 MG TABLET PO SCH (20:23)
[2020-06-10] MEDS: traZODone 50 MG TABLET. PO SCH (20:23)
--- NOTE | 2020-06-10 21:08 | PDOC ---
Exam Note: Floyd Note: Please also refer to the separate dictated note~for this date of service dictated separately.~Patient seen individually. Discussed the patient with Nursing staff reviewed the chart.~Reviewed interim history and current functioning. Reviewed vital signs,~Labs/ Radiology~and current medications noted below. Continue current treatment with the changes noted in the dictated addendum note Assessment: Vital Signs/I&O: Vital Signs Date Time Temp Pulse Resp B/P (MAP) Pulse Ox O2 Delivery O2 Flow Rate FiO2 06/10/20 16:04 98.6 84 18 117/81 (93) 97 06/08/20 15:26 Room Air I & O 06/09/20 06/09/20 06/10/20 15:00 23:00 07:00 Intake Total 960 ml 480 ml Balance 960 ml 480 ml Labs: Laboratory Tests Test 06/10/20 08:02 Sodium Level 144 mmol/L (136-145) Potassium Level 4.3 mmol/L (3.5-5.1) Chloride Level 108 mmol/L (98-107) H Carbon Dioxide Level 27 mmol/L (21-32) Anion Gap 9 (6-14) Blood Urea Nitrogen 26 mg/dL (8-26) Creatinine 1.1 mg/dL (0.7-1.3) Estimated GFR (Cockcroft-Gault) 67.4 Glucose Level 111 mg/dL (70-99) H Calcium Level 9.4 mg/dL (8.5-10.1) Current Medications: Meds: Laboratory Tests Test 06/10/20 08:02 Sodium Level 144 mmol/L Potassium Level 4.3 mmol/L Chloride Level 108 mmol/L Carbon Dioxide Level 27 mmol/L Anion Gap 9 Blood Urea Nitrogen 26 mg/dL Creatinine 1.1 mg/dL Estimated GFR (Cockcroft-Gault) 67.4 Glucose Level 111 mg/dL Calcium Level 9.4 mg/dL Current Medications Medications (Trade) Dose Ordered Sig/Neftali Route PRN Reason Start Time Stop Time Status Last Admin Dose Admin Acetaminophen (Tylenol) 650 mg PRN Q6HRS PRN PO MILD PAIN / TEMP > 100.3'F 05/27/20 16:30 Multi-Ingredient Ointment (Analgesic [place]) 1 herman PRN QID PRN TP MUSCLE PAIN 05/27/20 16:30 Al Hydroxide/Mg Hydroxide (Mylanta Plus Xs) 15 ml PRN AFTMEALHC PRN PO DYSPEPSIA 05/27/20 16:30 Magnesium Hydroxide (Milk Of Magnesia) 2,400 mg PRN QHS PRN PO CONSTIPATION 05/27/20 16:30 Acetaminophen (Tylenol) 500 mg PRN Q6HRS PRN PO PAIN 05/27/20 18:15 UNV Aspirin (Aspirin Chewable) 81 mg DAILY PO 05/28/20 09:00 06/10/20 09:44 Docusate Sodium (Colace) 100 mg BID PO 05/27/20 21:00 06/08/20 12:12 DC 06/07/20 19:57 Donepezil HCl (Aricept) 10 mg HS PO 05/27/20 21:00 05/31/20 16:33 DC 05/30/20 20:39 Fluticasone Propionate (Flonase) 1 spray DAILY NS 05/28/20 09:00 06/10/20 09:45 Memantine (Namenda) 10 mg BID PO 05/27/20 21:00 05/31/20 16:33 DC 05/31/20 08:00 Quetiapine Fumarate (SEROquel) 100 mg QHS PO 05/27/20 21:00 06/04/20 16:21 DC 06/03/20 20:12 Trazodone HCl (Desyrel) 50 mg QHS PO 05/27/20 21:00 05/28/20 11:16 DC 05/27/20 20:02 Cyanocobalamin (Vitamin B-12) 100 mcg DAILY PO 05/28/20 09:00 06/10/20 09:45 Non-Formulary Medication (Ergocalciferol (Vitamin D2) (Vitamin D2)) 1,250 mcg WEEKLY PO 06/03/20 09:00 UNV Fluvoxamine Maleate (Luvox) 50 mg QHS PO 05/27/20 21:00 06/04/20 16:21 DC 06/03/20 20:12 Cetirizine HCl (ZyrTEC) 10 mg DAILY PO 05/28/20 09:00 06/10/20 09:44 Melatonin (Melatonin) 9 mg HS PO 05/27/20 21:00 05/28/20 11:16 DC 05/27/20 20:02 Multivitamins/ Calcium (Thera-M Plus) 1 tab DAILY PO 05/28/20 09:00 06/10/20 09:44 Pantoprazole Sodium (Protonix) 40 mg DAILYAC PO 05/28/20 07:30 06/10/20 09:44 Ondansetron HCl (Zofran Odt) 4 mg PRN Q6HRS PRN PO NAUSEA/VOMITING 05/27/20 19:00 Polyethylene Glycol (miraLAX) 17 gm DAILY PO 05/28/20 09:00 06/10/20 09:45 Vitamin D (Vitamin D3) 50,000 unit WEEKLY PO 05/28/20 09:00 06/04/20 09:00 Melatonin (Melatonin) 6 mg PRN QHS PRN PO INSOMNIA, 1ST CHOICE 05/28/20 11:15 06/04/20 16:30 DC 06/03/20 20:13 Trazodone HCl (Desyrel) 50 mg PRN QHS PRN PO INSOMNIA, MAY REPEAT X1 05/28/20 20:00 06/04/20 16:29 DC 06/03/20 20:14 Olanzapine (ZyPREXA ZYDIS) 2.5 mg PRN Q2HR PRN PO PSYCHOSIS 05/29/20 18:00 06/08/20 20:41 Quetiapine Fumarate (SEROquel) 12.5 mg 0900,1300 PO 06/01/20 09:00 06/04/20 16:21 DC 06/04/20 12:59 Sertraline HCl (Zoloft) 25 mg DAILY PO 06/01/20 09:00 06/04/20 09:00 DC 06/04/20 09:42 Mirtazapine (Remeron) 7.5 mg QHS PO 06/01/20 21:45 06/10/20 20:23 Sertraline HCl (Zoloft) 50 mg DAILY PO 06/05/20 09:00 06/07/20 09:00 DC 06/07/20 07:51 Olanzapine (ZyPREXA) 2.5 mg 0900,1300,1700 PO 06/04/20 17:00 06/10/20 17:37 Trazodone HCl (Desyrel) 50 mg QHS PO 06/04/20 21:00 06/10/20 20:23 Melatonin (Melatonin) 6 mg QHS PO 06/04/20 21:00 06/10/20 20:23 Sertraline HCl (Zoloft) 75 mg DAILY PO 06/08/20 09:00 06/10/20 09:44 Dextrose 1,000 ml @ 100 mls/hr Q10H IV 06/09/20 20:10 06/10/20 06:52 DC 06/09/20 23:00 I have reviewed the current psychotropics carefully including drug interactions. Risk benefit ratio favors no change other than as noted in my dictated progress note. Diagnosis: Problems: (1) Major neurocognitive disorder (2) Impulse control disorder, unspecified (3) Anxiety disorder, unspecified (4) Dementia, vascular, with depression (5) Dementia, vascular, with delusions (6) Dementia in Alzheimer's disease with depression (7) Dementia in Alzheimer's disease with delusions (8) Dementia of the Alzheimer's type with early onset with behavioral disturbance AYLIN VALENCIA MD Jun 10, 2020 21:08
[2020-06-11 05:11] VITALS: BP 125/87
[2020-06-11] MEDS: FLUTICASONE 50MCG/NASAL SPRAY 16GM BOTTLE. NS SCH (08:29)
[2020-06-11] MEDS: CETIRIZINE HCL 10 MG TABLET PO SCH (08:29)
[2020-06-11] MEDS: MULTIVITAMIN with MINERAL TABLET. PO SCH (08:29)
[2020-06-11] MEDS: SERTRALINE 25 MG TABLET. PO SCH (08:29)
[2020-06-11] MEDS: OLANZapine 2.5 MG TABLET PO SCH ×3 (08:29→16:59)
[2020-06-11] MEDS: PANTOPRAZOLE 40 MG TABLET. PO SCH (08:29)
[2020-06-11] MEDS: POLYETHYLENE GLYCOL 3350 17 GM PACKET. PO SCH (08:29)
[2020-06-11] MEDS: ASPIRIN CHEWABLE 81 MG TABLET. PO SCH (08:29)
[2020-06-11] MEDS: CHOLECALCIFEROL (VITAMIN D3) 50,000 UNIT CAPSULE PO SCH (08:30)
[2020-06-11] MEDS: CYANOCOBALAMIN (VITAMIN B-12) 100 MCG TABLET PO SCH (08:30)
--- NOTE | 2020-06-11 08:40 | PDOC ---
Exam Note: Floyd Note: This note is a late entry for 06/10/2020 covers elements not covered in my initial note. Subjective: The patient was seen face to face in the evening of 06/10/2020 with Perry DE LA GARZA, discussed and reviewed the chart. He slept 6 hours previous night. He remains confused, often putting himself on the floor but he has done better today. He was dehydrated. Sodium 151; got some IV fluids last night. Sodium today was 154, chloride 108. Review of Systems: No CV, , pulmonary, eye, ENT system symptoms on review. Reliability poor. Mental Status Exam: The patient is oriented to himself. Insight and judgement, recent and remote memory, attention and concentration, fund of knowledge is poor consistent with his diagnosis. Laboratory Data: Reviewed. Impression: Major neurocognitive disorder Alzheimer vascular with delusion, depression, behavioral disturbance. Anxiety disorder unspecified. Impulse control disorder unspecified. Plan: No change from initial note. Assessment: Vital Signs/I&O: Vital Signs Date Time Temp Pulse Resp B/P (MAP) Pulse Ox O2 Delivery O2 Flow Rate FiO2 06/11/20 05:11 97.7 53 16 125/87 (100) 96 06/08/20 15:26 Room Air I & O 06/10/20 06/10/20 06/11/20 15:00 23:00 07:00 Intake Total 960 ml 900 ml Balance 960 ml 900 ml Current Medications: Meds: Current Medications Medications (Trade) Dose Ordered Sig/Neftali Route PRN Reason Start Time Stop Time Status Last Admin Dose Admin Acetaminophen (Tylenol) 650 mg PRN Q6HRS PRN PO MILD PAIN / TEMP > 100.3'F 05/27/20 16:30 Multi-Ingredient Ointment (Analgesic [place]) 1 herman PRN QID PRN TP MUSCLE PAIN 05/27/20 16:30 Al Hydroxide/Mg Hydroxide (Mylanta Plus Xs) 15 ml PRN AFTMEALHC PRN PO DYSPEPSIA 05/27/20 16:30 Magnesium Hydroxide (Milk Of Magnesia) 2,400 mg PRN QHS PRN PO CONSTIPATION 05/27/20 16:30 Acetaminophen (Tylenol) 500 mg PRN Q6HRS PRN PO PAIN 05/27/20 18:15 UNV Aspirin (Aspirin Chewable) 81 mg DAILY PO 05/28/20 09:00 06/11/20 08:29 Docusate Sodium (Colace) 100 mg BID PO 05/27/20 21:00 06/08/20 12:12 DC 06/07/20 19:57 Donepezil HCl (Aricept) 10 mg HS PO 05/27/20 21:00 05/31/20 16:33 DC 05/30/20 20:39 Fluticasone Propionate (Flonase) 1 spray DAILY NS 05/28/20 09:00 06/11/20 08:29 Memantine (Namenda) 10 mg BID PO 05/27/20 21:00 05/31/20 16:33 DC 05/31/20 08:00 Quetiapine Fumarate (SEROquel) 100 mg QHS PO 05/27/20 21:00 06/04/20 16:21 DC 06/03/20 20:12 Trazodone HCl (Desyrel) 50 mg QHS PO 05/27/20 21:00 05/28/20 11:16 DC 05/27/20 20:02 Cyanocobalamin (Vitamin B-12) 100 mcg DAILY PO 05/28/20 09:00 06/11/20 08:30 Non-Formulary Medication (Ergocalciferol (Vitamin D2) (Vitamin D2)) 1,250 mcg WEEKLY PO 06/03/20 09:00 UNV Fluvoxamine Maleate (Luvox) 50 mg QHS PO 05/27/20 21:00 06/04/20 16:21 DC 06/03/20 20:12 Cetirizine HCl (ZyrTEC) 10 mg DAILY PO 05/28/20 09:00 06/11/20 08:29 Melatonin (Melatonin) 9 mg HS PO 05/27/20 21:00 05/28/20 11:16 DC 05/27/20 20:02 Multivitamins/ Calcium (Thera-M Plus) 1 tab DAILY PO 05/28/20 09:00 06/11/20 08:29 Pantoprazole Sodium (Protonix) 40 mg DAILYAC PO 05/28/20 07:30 06/11/20 08:29 Ondansetron HCl (Zofran Odt) 4 mg PRN Q6HRS PRN PO NAUSEA/VOMITING 05/27/20 19:00 Polyethylene Glycol (miraLAX) 17 gm DAILY PO 05/28/20 09:00 06/11/20 08:29 Vitamin D (Vitamin D3) 50,000 unit WEEKLY PO 05/28/20 09:00 06/11/20 08:30 Melatonin (Melatonin) 6 mg PRN QHS PRN PO INSOMNIA, 1ST CHOICE 05/28/20 11:15 06/04/20 16:30 DC 06/03/20 20:13 Trazodone HCl (Desyrel) 50 mg PRN QHS PRN PO INSOMNIA, MAY REPEAT X1 05/28/20 20:00 06/04/20 16:29 DC 06/03/20 20:14 Olanzapine (ZyPREXA ZYDIS) 2.5 mg PRN Q2HR PRN PO PSYCHOSIS 05/29/20 18:00 06/08/20 20:41 Quetiapine Fumarate (SEROquel) 12.5 mg 0900,1300 PO 06/01/20 09:00 06/04/20 16:21 DC 06/04/20 12:59 Sertraline HCl (Zoloft) 25 mg DAILY PO 06/01/20 09:00 06/04/20 09:00 DC 06/04/20 09:42 Mirtazapine (Remeron) 7.5 mg QHS PO 06/01/20 21:45 06/10/20 20:23 Sertraline HCl (Zoloft) 50 mg DAILY PO 06/05/20 09:00 06/07/20 09:00 DC 06/07/20 07:51 Olanzapine (ZyPREXA) 2.5 mg 0900,1300,1700 PO 06/04/20 17:00 06/11/20 08:29 Trazodone HCl (Desyrel) 50 mg QHS PO 06/04/20 21:00 06/10/20 20:23 Melatonin (Melatonin) 6 mg QHS PO 06/04/20 21:00 06/10/20 20:23 Sertraline HCl (Zoloft) 75 mg DAILY PO 06/08/20 09:00 06/11/20 08:29 Dextrose 1,000 ml @ 100 mls/hr Q10H IV 06/09/20 20:10 06/10/20 06:52 DC 06/09/20 23:00 I have reviewed the current psychotropics carefully including drug interactions. Risk benefit ratio favors no change other than as noted in my dictated progress note. Diagnosis: Problems: (1) Major neurocognitive disorder (2) Impulse control disorder, unspecified (3) Anxiety disorder, unspecified (4) Dementia, vascular, with depression (5) Dementia, vascular, with delusions (6) Dementia in Alzheimer's disease with depression (7) Dementia in Alzheimer's disease with delusions (8) Dementia of the Alzheimer's type with early onset with behavioral disturbance AYLIN VALENCIA MD Jun 11, 2020 08:40
[2020-06-11 15:22] VITALS: BP 144/61
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
[2020-06-11] MEDS: traZODone 50 MG TABLET. PO SCH (20:28)
[2020-06-11] MEDS: MELATONIN 3 MG TABLET PO SCH (20:28)
[2020-06-11] MEDS: MIRTAZAPINE 7.5 MG TABLET. PO SCH (20:28)
--- NOTE | 2020-06-11 21:05 | PDOC ---
Exam Note: Floyd Note: Please also refer to the separate dictated note~for this date of service dictated separately.~Patient seen individually. Discussed the patient with Nursing staff reviewed the chart.~Reviewed interim history and current functioning. Reviewed vital signs,~Labs/ Radiology~and current medications noted below. Continue current treatment with the changes noted in the dictated addendum note Assessment: Vital Signs/I&O: Vital Signs Date Time Temp Pulse Resp B/P (MAP) Pulse Ox O2 Delivery O2 Flow Rate FiO2 06/11/20 15:22 97.5 95 18 144/61 (88) 95 Room Air I & O 06/10/20 06/10/20 06/11/20 15:00 23:00 07:00 Intake Total 960 ml 900 ml Balance 960 ml 900 ml Current Medications: I have reviewed the current psychotropics carefully including drug interactions. Risk benefit ratio favors no change other than as noted in my dictated progress note. Diagnosis: Problems: (1) Major neurocognitive disorder (2) Impulse control disorder, unspecified (3) Anxiety disorder, unspecified (4) Dementia, vascular, with depression (5) Dementia, vascular, with delusions (6) Dementia in Alzheimer's disease with depression (7) Dementia in Alzheimer's disease with delusions (8) Dementia of the Alzheimer's type with early onset with behavioral disturbance AYLIN VALENCIA MD Jun 11, 2020 21:05
[2020-06-12 05:47] VITALS: BP 132/62
[2020-06-12 05:49] VITALS: BP 150/80
[2020-06-12 05:56] VITALS: BP 138/87
[2020-06-12] MEDS: CYANOCOBALAMIN (VITAMIN B-12) 100 MCG TABLET PO SCH (07:25)
[2020-06-12] MEDS: PANTOPRAZOLE 40 MG TABLET. PO SCH (07:25)
[2020-06-12] MEDS: POLYETHYLENE GLYCOL 3350 17 GM PACKET. PO SCH (07:25)
[2020-06-12] MEDS: MULTIVITAMIN with MINERAL TABLET. PO SCH (07:25)
[2020-06-12] MEDS: FLUTICASONE 50MCG/NASAL SPRAY 16GM BOTTLE. NS SCH (07:25)
[2020-06-12] MEDS: SERTRALINE 25 MG TABLET. PO SCH (07:26)
[2020-06-12] MEDS: ASPIRIN CHEWABLE 81 MG TABLET. PO SCH (07:26)
[2020-06-12] MEDS: OLANZapine 2.5 MG TABLET PO SCH ×3 (07:26→16:54)
[2020-06-12] MEDS: CETIRIZINE HCL 10 MG TABLET PO SCH (07:26)
[2020-06-12 15:37] VITALS: BP 111/79
[2020-06-12 15:42] VITALS: BP 111/79
[2020-06-12] MEDS: traZODone 50 MG TABLET. PO SCH (19:29)
[2020-06-12] MEDS: MELATONIN 3 MG TABLET PO SCH (19:29)
[2020-06-12] MEDS: MIRTAZAPINE 7.5 MG TABLET. PO SCH (19:29)
--- NOTE | 2020-06-12 20:52 | PDOC ---
Exam Note: Floyd Note: Please also refer to the separate dictated note~for this date of service dictated separately.~Patient seen individually. Discussed the patient with Nursing staff reviewed the chart.~Reviewed interim history and current functioning. Reviewed vital signs,~Labs/ Radiology~and current medications noted below. Continue current treatment with the changes noted in the dictated addendum note Assessment: Vital Signs/I&O: Vital Signs Date Time Temp Pulse Resp B/P (MAP) Pulse Ox O2 Delivery O2 Flow Rate FiO2 06/12/20 15:42 97.9 80 18 111/79 (90) 96 Room Air I & O 06/11/20 06/11/20 06/12/20 15:00 23:00 07:00 Intake Total 460 ml 600 ml Output Total 1 ml Balance 460 ml 600 ml -1 ml Current Medications: Meds: Current Medications Medications (Trade) Dose Ordered Sig/Neftali Route PRN Reason Start Time Stop Time Status Last Admin Dose Admin Acetaminophen (Tylenol) 650 mg PRN Q6HRS PRN PO MILD PAIN / TEMP > 100.3'F 05/27/20 16:30 Multi-Ingredient Ointment (Analgesic [place]) 1 herman PRN QID PRN TP MUSCLE PAIN 05/27/20 16:30 Al Hydroxide/Mg Hydroxide (Mylanta Plus Xs) 15 ml PRN AFTMEALHC PRN PO DYSPEPSIA 05/27/20 16:30 Magnesium Hydroxide (Milk Of Magnesia) 2,400 mg PRN QHS PRN PO CONSTIPATION 05/27/20 16:30 Acetaminophen (Tylenol) 500 mg PRN Q6HRS PRN PO PAIN 05/27/20 18:15 UNV Aspirin (Aspirin Chewable) 81 mg DAILY PO 05/28/20 09:00 06/12/20 07:26 Docusate Sodium (Colace) 100 mg BID PO 05/27/20 21:00 06/08/20 12:12 DC 06/07/20 19:57 Donepezil HCl (Aricept) 10 mg HS PO 05/27/20 21:00 05/31/20 16:33 DC 05/30/20 20:39 Fluticasone Propionate (Flonase) 1 spray DAILY NS 05/28/20 09:00 06/12/20 07:25 Memantine (Namenda) 10 mg BID PO 05/27/20 21:00 05/31/20 16:33 DC 05/31/20 08:00 Quetiapine Fumarate (SEROquel) 100 mg QHS PO 05/27/20 21:00 06/04/20 16:21 DC 06/03/20 20:12 Trazodone HCl (Desyrel) 50 mg QHS PO 05/27/20 21:00 05/28/20 11:16 DC 05/27/20 20:02 Cyanocobalamin (Vitamin B-12) 100 mcg DAILY PO 05/28/20 09:00 06/12/20 07:25 Non-Formulary Medication (Ergocalciferol (Vitamin D2) (Vitamin D2)) 1,250 mcg WEEKLY PO 06/03/20 09:00 UNV Fluvoxamine Maleate (Luvox) 50 mg QHS PO 05/27/20 21:00 06/04/20 16:21 DC 06/03/20 20:12 Cetirizine HCl (ZyrTEC) 10 mg DAILY PO 05/28/20 09:00 06/12/20 07:26 Melatonin (Melatonin) 9 mg HS PO 05/27/20 21:00 05/28/20 11:16 DC 05/27/20 20:02 Multivitamins/ Calcium (Thera-M Plus) 1 tab DAILY PO 05/28/20 09:00 06/12/20 07:25 Pantoprazole Sodium (Protonix) 40 mg DAILYAC PO 05/28/20 07:30 06/12/20 07:25 Ondansetron HCl (Zofran Odt) 4 mg PRN Q6HRS PRN PO NAUSEA/VOMITING 05/27/20 19:00 Polyethylene Glycol (miraLAX) 17 gm DAILY PO 05/28/20 09:00 06/12/20 07:25 Vitamin D (Vitamin D3) 50,000 unit WEEKLY PO 05/28/20 09:00 06/11/20 08:30 Melatonin (Melatonin) 6 mg PRN QHS PRN PO INSOMNIA, 1ST CHOICE 05/28/20 11:15 06/04/20 16:30 DC 06/03/20 20:13 Trazodone HCl (Desyrel) 50 mg PRN QHS PRN PO INSOMNIA, MAY REPEAT X1 05/28/20 20:00 06/04/20 16:29 DC 06/03/20 20:14 Olanzapine (ZyPREXA ZYDIS) 2.5 mg PRN Q2HR PRN PO PSYCHOSIS 05/29/20 18:00 06/08/20 20:41 Quetiapine Fumarate (SEROquel) 12.5 mg 0900,1300 PO 06/01/20 09:00 06/04/20 16:21 DC 06/04/20 12:59 Sertraline HCl (Zoloft) 25 mg DAILY PO 06/01/20 09:00 06/04/20 09:00 DC 06/04/20 09:42 Mirtazapine (Remeron) 7.5 mg QHS PO 06/01/20 21:45 06/12/20 19:29 Sertraline HCl (Zoloft) 50 mg DAILY PO 06/05/20 09:00 06/07/20 09:00 DC 06/07/20 07:51 Olanzapine (ZyPREXA) 2.5 mg 0900,1300,1700 PO 06/04/20 17:00 06/12/20 16:54 Trazodone HCl (Desyrel) 50 mg QHS PO 06/04/20 21:00 06/12/20 19:29 Melatonin (Melatonin) 6 mg QHS PO 06/04/20 21:00 06/12/20 19:29 Sertraline HCl (Zoloft) 75 mg DAILY PO 06/08/20 09:00 06/12/20 16:30 DC 06/12/20 07:26 Dextrose 1,000 ml @ 100 mls/hr Q10H IV 06/09/20 20:10 06/10/20 06:52 DC 06/09/20 23:00 Sertraline HCl (Zoloft) 100 mg DAILY PO 06/13/20 09:00 I have reviewed the current psychotropics carefully including drug interactions. Risk benefit ratio favors no change other than as noted in my dictated progress note. Diagnosis: Problems: (1) Major neurocognitive disorder (2) Impulse control disorder, unspecified (3) Anxiety disorder, unspecified (4) Dementia, vascular, with depression (5) Dementia, vascular, with delusions (6) Dementia in Alzheimer's disease with depression (7) Dementia in Alzheimer's disease with delusions (8) Dementia of the Alzheimer's type with early onset with behavioral disturbance AYLIN VALENCIA MD Jun 12, 2020 20:52
[2020-06-13 05:37] VITALS: BP 117/78
[2020-06-13] MEDS: CYANOCOBALAMIN (VITAMIN B-12) 100 MCG TABLET PO SCH (08:14)
[2020-06-13] MEDS: FLUTICASONE 50MCG/NASAL SPRAY 16GM BOTTLE. NS SCH (08:14)
[2020-06-13] MEDS: OLANZapine 2.5 MG TABLET PO SCH ×3 (08:14→17:15)
[2020-06-13] MEDS: PANTOPRAZOLE 40 MG TABLET. PO SCH (08:14)
[2020-06-13] MEDS: CETIRIZINE HCL 10 MG TABLET PO SCH (08:14)
[2020-06-13] MEDS: ASPIRIN CHEWABLE 81 MG TABLET. PO SCH (08:14)
[2020-06-13] MEDS: POLYETHYLENE GLYCOL 3350 17 GM PACKET. PO SCH (08:14)
[2020-06-13] MEDS: MULTIVITAMIN with MINERAL TABLET. PO SCH (08:14)
[2020-06-13] MEDS: SERTRALINE 100 MG TABLET. PO SCH (08:15)
[2020-06-13 16:23] VITALS: BP 135/71
[2020-06-13] MEDS: traZODone 50 MG TABLET. PO SCH (17:13)
[2020-06-13] MEDS: MIRTAZAPINE 7.5 MG TABLET. PO SCH (17:13)
[2020-06-13] MEDS: MELATONIN 3 MG TABLET PO SCH (17:13)
--- NOTE | 2020-06-13 22:00 | PDOC ---
Exam Note: Floyd Note: Please also refer to the separate dictated note~for this date of service dictated separately.~Patient seen individually. Discussed the patient with Nursing staff reviewed the chart.~Reviewed interim history and current functioning. Reviewed vital signs,~Labs/ Radiology~and current medications noted below. Continue current treatment with the changes noted in the dictated addendum note Assessment: Vital Signs/I&O: Vital Signs Date Time Temp Pulse Resp B/P (MAP) Pulse Ox O2 Delivery O2 Flow Rate FiO2 06/13/20 16:23 97.2 100 20 135/71 (92) 96 Room Air I & O 06/12/20 06/12/20 06/13/20 14:59 22:59 06:59 Intake Total 360 ml 300 ml Balance 360 ml 300 ml Current Medications: Meds: Current Medications Medications (Trade) Dose Ordered Sig/Neftali Route PRN Reason Start Time Stop Time Status Last Admin Dose Admin Sertraline HCl (Zoloft) 100 mg DAILY PO 06/13/20 09:00 06/13/20 08:15 I have reviewed the current psychotropics carefully including drug interactions. Risk benefit ratio favors no change other than as noted in my dictated progress note. Diagnosis: Problems: (1) Major neurocognitive disorder (2) Impulse control disorder, unspecified (3) Anxiety disorder, unspecified (4) Dementia, vascular, with depression (5) Dementia, vascular, with delusions (6) Dementia in Alzheimer's disease with depression (7) Dementia in Alzheimer's disease with delusions (8) Dementia of the Alzheimer's type with early onset with behavioral disturbance AYLIN VALENCIA MD Jun 13, 2020 22:00
[2020-06-14 05:51] VITALS: BP_SYST 103
[2020-06-14 05:53] VITALS: BP 103/66
[2020-06-14] MEDS: POLYETHYLENE GLYCOL 3350 17 GM PACKET. PO SCH (08:05)
[2020-06-14] MEDS: PANTOPRAZOLE 40 MG TABLET. PO SCH (08:05)
[2020-06-14] MEDS: FLUTICASONE 50MCG/NASAL SPRAY 16GM BOTTLE. NS SCH (08:05)
[2020-06-14] MEDS: ASPIRIN CHEWABLE 81 MG TABLET. PO SCH (08:05)
[2020-06-14] MEDS: MULTIVITAMIN with MINERAL TABLET. PO SCH (08:05)
[2020-06-14] MEDS: SERTRALINE 100 MG TABLET. PO SCH (08:05)
[2020-06-14] MEDS: OLANZapine 2.5 MG TABLET PO SCH ×3 (08:05→17:00)
[2020-06-14] MEDS: CYANOCOBALAMIN (VITAMIN B-12) 100 MCG TABLET PO SCH (08:05)
[2020-06-14] MEDS: CETIRIZINE HCL 10 MG TABLET PO SCH (08:05)
[2020-06-14 15:53] VITALS: BP 100/78
[2020-06-14] MEDS: traZODone 50 MG TABLET. PO SCH (19:31)
[2020-06-14] MEDS: MELATONIN 3 MG TABLET PO SCH (19:31)
[2020-06-14] MEDS: MIRTAZAPINE 7.5 MG TABLET. PO SCH (19:31)
--- NOTE | 2020-06-14 20:56 | PDOC ---
Exam Note: Floyd Note: This note is a late entry for 06/11/2020 covers elements not covered in my initial note. Subjective: The patient was seen face to face in the morning of 06/11/2020 for a treatment team meeting with Samina Andersen, Lilian Parker and Madelaine (social science instructor), Shameka Magana, activity therapy and Oxana DE LA GARZA, discussed and reviewed the chart. He slept 7-3/4 hours previous night. The patients daughter Cathy and Nicole attended the treatment team meeting. We have discussed the patients diagnosis, progress, changes in psychotropics. He continues to put himself on the floor but redirects, not aggressive. Review of Systems: No CV, , pulmonary, eye, ENT system symptoms on review. Reliability poor. Mental Status Exam: The patient is oriented to himself. Insight and judgement, recent and remote memory, attention and concentration, fund of knowledge is poor consistent with his diagnosis. Laboratory Data: Reviewed. Impression: Major neurocognitive disorder Alzheimer vascular with delusion, depression, behavioral disturbance. Anxiety disorder unspecified. Impulse control disorder unspecified. Plan: Continue current psychotropics. We may consider adding low dose Depakote Sprinkle depending on his progress. Assessment: Vital Signs/I&O: Vital Signs Date Time Temp Pulse Resp B/P (MAP) Pulse Ox O2 Delivery O2 Flow Rate FiO2 06/14/20 15:53 97.6 93 18 100/78 (85) 96 Room Air I & O 06/13/20 06/13/20 06/14/20 15:00 23:00 07:00 Intake Total 360 ml 240 ml Balance 360 ml 240 ml Current Medications: Meds: Current Medications Medications (Trade) Dose Ordered Sig/Neftali Route PRN Reason Start Time Stop Time Status Last Admin Dose Admin Acetaminophen (Tylenol) 650 mg PRN Q6HRS PRN PO MILD PAIN / TEMP > 100.3'F 05/27/20 16:30 Multi-Ingredient Ointment (Analgesic [place]) 1 hemran PRN QID PRN TP MUSCLE PAIN 05/27/20 16:30 Al Hydroxide/Mg Hydroxide (Mylanta Plus Xs) 15 ml PRN AFTMEALHC PRN PO DYSPEPSIA 05/27/20 16:30 Magnesium Hydroxide (Milk Of Magnesia) 2,400 mg PRN QHS PRN PO CONSTIPATION 05/27/20 16:30 Acetaminophen (Tylenol) 500 mg PRN Q6HRS PRN PO PAIN 05/27/20 18:15 UNV Aspirin (Aspirin Chewable) 81 mg DAILY PO 05/28/20 09:00 06/14/20 08:05 Docusate Sodium (Colace) 100 mg BID PO 05/27/20 21:00 06/08/20 12:12 DC 06/07/20 19:57 Donepezil HCl (Aricept) 10 mg HS PO 05/27/20 21:00 05/31/20 16:33 DC 05/30/20 20:39 Fluticasone Propionate (Flonase) 1 spray DAILY NS 05/28/20 09:00 06/14/20 08:05 Memantine (Namenda) 10 mg BID PO 05/27/20 21:00 05/31/20 16:33 DC 05/31/20 08:00 Quetiapine Fumarate (SEROquel) 100 mg QHS PO 05/27/20 21:00 06/04/20 16:21 DC 06/03/20 20:12 Trazodone HCl (Desyrel) 50 mg QHS PO 05/27/20 21:00 05/28/20 11:16 DC 05/27/20 20:02 Cyanocobalamin (Vitamin B-12) 100 mcg DAILY PO 05/28/20 09:00 06/14/20 08:05 Non-Formulary Medication (Ergocalciferol (Vitamin D2) (Vitamin D2)) 1,250 mcg WEEKLY PO 06/03/20 09:00 UNV Fluvoxamine Maleate (Luvox) 50 mg QHS PO 05/27/20 21:00 06/04/20 16:21 DC 06/03/20 20:12 Cetirizine HCl (ZyrTEC) 10 mg DAILY PO 05/28/20 09:00 06/14/20 08:05 Melatonin (Melatonin) 9 mg HS PO 05/27/20 21:00 05/28/20 11:16 DC 05/27/20 20:02 Multivitamins/ Calcium (Thera-M Plus) 1 tab DAILY PO 05/28/20 09:00 06/14/20 08:05 Pantoprazole Sodium (Protonix) 40 mg DAILYAC PO 05/28/20 07:30 06/14/20 08:05 Ondansetron HCl (Zofran Odt) 4 mg PRN Q6HRS PRN PO NAUSEA/VOMITING 05/27/20 19:00 Polyethylene Glycol (miraLAX) 17 gm DAILY PO 05/28/20 09:00 06/14/20 08:05 Vitamin D (Vitamin D3) 50,000 unit WEEKLY PO 05/28/20 09:00 06/11/20 08:30 Melatonin (Melatonin) 6 mg PRN QHS PRN PO INSOMNIA, 1ST CHOICE 05/28/20 11:15 06/04/20 16:30 DC 06/03/20 20:13 Trazodone HCl (Desyrel) 50 mg PRN QHS PRN PO INSOMNIA, MAY REPEAT X1 05/28/20 20:00 06/04/20 16:29 DC 06/03/20 20:14 Olanzapine (ZyPREXA ZYDIS) 2.5 mg PRN Q2HR PRN PO PSYCHOSIS 05/29/20 18:00 06/08/20 20:41 Quetiapine Fumarate (SEROquel) 12.5 mg 0900,1300 PO 06/01/20 09:00 06/04/20 16:21 DC 06/04/20 12:59 Sertraline HCl (Zoloft) 25 mg DAILY PO 06/01/20 09:00 06/04/20 09:00 DC 06/04/20 09:42 Mirtazapine (Remeron) 7.5 mg QHS PO 06/01/20 21:45 06/14/20 19:31 Sertraline HCl (Zoloft) 50 mg DAILY PO 06/05/20 09:00 06/07/20 09:00 DC 06/07/20 07:51 Olanzapine (ZyPREXA) 2.5 mg 0900,1300,1700 PO 06/04/20 17:00 06/14/20 17:00 Trazodone HCl (Desyrel) 50 mg QHS PO 06/04/20 21:00 06/14/20 19:31 Melatonin (Melatonin) 6 mg QHS PO 06/04/20 21:00 06/14/20 19:31 Sertraline HCl (Zoloft) 75 mg DAILY PO 06/08/20 09:00 06/12/20 16:30 DC 06/12/20 07:26 Dextrose 1,000 ml @ 100 mls/hr Q10H IV 06/09/20 20:10 06/10/20 06:52 DC 06/09/20 23:00 Sertraline HCl (Zoloft) 100 mg DAILY PO 06/13/20 09:00 06/14/20 08:05 I have reviewed the current psychotropics carefully including drug interactions. Risk benefit ratio favors no change other than as noted in my dictated progress note. Diagnosis: Problems: (1) Major neurocognitive disorder (2) Impulse control disorder, unspecified (3) Anxiety disorder, unspecified (4) Dementia, vascular, with depression (5) Dementia, vascular, with delusions (6) Dementia in Alzheimer's disease with depression (7) Dementia in Alzheimer's disease with delusions (8) Dementia of the Alzheimer's type with early onset with behavioral disturbance AYLIN VALENCIA MD Jun 14, 2020 20:56
--- NOTE | 2020-06-14 21:18 | PDOC ---
Exam Note: Floyd Note: This note is a late entry for 06/12/2020 covers elements not covered in my initial note. Subjective: The patient was seen face to face in the evening of 06/12/2020 with Oxana DE LA GARZA, discussed and reviewed the chart. He slept 5-1/2 hours previous night. He has been calm, confused, less anxious, lays himself on the floor. At one time he seemed to be hallucinating lying on the floor, was making movements like he was cleaning the floor. Review of Systems: No CV, , pulmonary, eye, ENT system symptoms on review. Reliability poor. Mental Status Exam: The patient is oriented to himself. Insight and judgement, recent and remote memory, attention and concentration, fund of knowledge is poor consistent with his diagnosis. Laboratory Data: Reviewed. Impression: Major neurocognitive disorder Alzheimer vascular with delusion, depression, behavioral disturbance. Anxiety disorder unspecified. Impulse control disorder unspecified. Plan: Increase Zoloft from 75 mg a day to 100 mg a day. Rest unchanged for now. Assessment: Vital Signs/I&O: Vital Signs Date Time Temp Pulse Resp B/P (MAP) Pulse Ox O2 Delivery O2 Flow Rate FiO2 06/14/20 15:53 97.6 93 18 100/78 (85) 96 Room Air I & O 06/13/20 06/13/20 06/14/20 15:00 23:00 07:00 Intake Total 360 ml 240 ml Balance 360 ml 240 ml Current Medications: Meds: Current Medications Medications (Trade) Dose Ordered Sig/Neftali Route PRN Reason Start Time Stop Time Status Last Admin Dose Admin Acetaminophen (Tylenol) 650 mg PRN Q6HRS PRN PO MILD PAIN / TEMP > 100.3'F 05/27/20 16:30 Multi-Ingredient Ointment (Analgesic [place]) 1 herman PRN QID PRN TP MUSCLE PAIN 05/27/20 16:30 Al Hydroxide/Mg Hydroxide (Mylanta Plus Xs) 15 ml PRN AFTMEALHC PRN PO DYSPEPSIA 05/27/20 16:30 Magnesium Hydroxide (Milk Of Magnesia) 2,400 mg PRN QHS PRN PO CONSTIPATION 05/27/20 16:30 Acetaminophen (Tylenol) 500 mg PRN Q6HRS PRN PO PAIN 05/27/20 18:15 UNV Aspirin (Aspirin Chewable) 81 mg DAILY PO 05/28/20 09:00 06/14/20 08:05 Docusate Sodium (Colace) 100 mg BID PO 05/27/20 21:00 06/08/20 12:12 DC 06/07/20 19:57 Donepezil HCl (Aricept) 10 mg HS PO 05/27/20 21:00 05/31/20 16:33 DC 05/30/20 20:39 Fluticasone Propionate (Flonase) 1 spray DAILY NS 05/28/20 09:00 06/14/20 08:05 Memantine (Namenda) 10 mg BID PO 05/27/20 21:00 05/31/20 16:33 DC 05/31/20 08:00 Quetiapine Fumarate (SEROquel) 100 mg QHS PO 05/27/20 21:00 06/04/20 16:21 DC 06/03/20 20:12 Trazodone HCl (Desyrel) 50 mg QHS PO 05/27/20 21:00 05/28/20 11:16 DC 05/27/20 20:02 Cyanocobalamin (Vitamin B-12) 100 mcg DAILY PO 05/28/20 09:00 06/14/20 08:05 Non-Formulary Medication (Ergocalciferol (Vitamin D2) (Vitamin D2)) 1,250 mcg WEEKLY PO 06/03/20 09:00 UNV Fluvoxamine Maleate (Luvox) 50 mg QHS PO 05/27/20 21:00 06/04/20 16:21 DC 06/03/20 20:12 Cetirizine HCl (ZyrTEC) 10 mg DAILY PO 05/28/20 09:00 06/14/20 08:05 Melatonin (Melatonin) 9 mg HS PO 05/27/20 21:00 05/28/20 11:16 DC 05/27/20 20:02 Multivitamins/ Calcium (Thera-M Plus) 1 tab DAILY PO 05/28/20 09:00 06/14/20 08:05 Pantoprazole Sodium (Protonix) 40 mg DAILYAC PO 05/28/20 07:30 06/14/20 08:05 Ondansetron HCl (Zofran Odt) 4 mg PRN Q6HRS PRN PO NAUSEA/VOMITING 05/27/20 19:00 Polyethylene Glycol (miraLAX) 17 gm DAILY PO 05/28/20 09:00 06/14/20 08:05 Vitamin D (Vitamin D3) 50,000 unit WEEKLY PO 05/28/20 09:00 06/11/20 08:30 Melatonin (Melatonin) 6 mg PRN QHS PRN PO INSOMNIA, 1ST CHOICE 05/28/20 11:15 06/04/20 16:30 DC 06/03/20 20:13 Trazodone HCl (Desyrel) 50 mg PRN QHS PRN PO INSOMNIA, MAY REPEAT X1 05/28/20 20:00 06/04/20 16:29 DC 06/03/20 20:14 Olanzapine (ZyPREXA ZYDIS) 2.5 mg PRN Q2HR PRN PO PSYCHOSIS 05/29/20 18:00 06/08/20 20:41 Quetiapine Fumarate (SEROquel) 12.5 mg 0900,1300 PO 06/01/20 09:00 06/04/20 16:21 DC 06/04/20 12:59 Sertraline HCl (Zoloft) 25 mg DAILY PO 06/01/20 09:00 06/04/20 09:00 DC 06/04/20 09:42 Mirtazapine (Remeron) 7.5 mg QHS PO 06/01/20 21:45 06/14/20 19:31 Sertraline HCl (Zoloft) 50 mg DAILY PO 06/05/20 09:00 06/07/20 09:00 DC 06/07/20 07:51 Olanzapine (ZyPREXA) 2.5 mg 0900,1300,1700 PO 06/04/20 17:00 06/14/20 17:00 Trazodone HCl (Desyrel) 50 mg QHS PO 06/04/20 21:00 06/14/20 19:31 Melatonin (Melatonin) 6 mg QHS PO 06/04/20 21:00 06/14/20 19:31 Sertraline HCl (Zoloft) 75 mg DAILY PO 06/08/20 09:00 06/12/20 16:30 DC 06/12/20 07:26 Dextrose 1,000 ml @ 100 mls/hr Q10H IV 2/23/21 20:10 06/10/20 06:52 DC 06/09/20 23:00 Sertraline HCl (Zoloft) 100 mg DAILY PO 06/13/20 09:00 06/14/20 08:05 I have reviewed the current psychotropics carefully including drug interactions. Risk benefit ratio favors no change other than as noted in my dictated progress note. Diagnosis: Problems: (1) Major neurocognitive disorder (2) Impulse control disorder, unspecified (3) Anxiety disorder, unspecified (4) Dementia, vascular, with depression (5) Dementia, vascular, with delusions (6) Dementia in Alzheimer's disease with depression (7) Dementia in Alzheimer's disease with delusions (8) Dementia of the Alzheimer's type with early onset with behavioral disturbance AYLIN VALENCIA MD Jun 14, 2020 21:18
--- NOTE | 2020-06-14 21:19 | PDOC ---
Exam Note: Floyd Note: Please also refer to the separate dictated note~for this date of service dictated separately.~Patient seen individually. Discussed the patient with Nursing staff reviewed the chart.~Reviewed interim history and current functioning. Reviewed vital signs,~Labs/ Radiology~and current medications noted below. Continue current treatment with the changes noted in the dictated addendum note Assessment: Vital Signs/I&O: Vital Signs Date Time Temp Pulse Resp B/P (MAP) Pulse Ox O2 Delivery O2 Flow Rate FiO2 06/14/20 15:53 97.6 93 18 100/78 (85) 96 Room Air I & O 06/13/20 06/13/20 06/14/20 15:00 23:00 07:00 Intake Total 360 ml 240 ml Balance 360 ml 240 ml Current Medications: Meds: Current Medications Medications (Trade) Dose Ordered Sig/Neftali Route PRN Reason Start Time Stop Time Status Last Admin Dose Admin Acetaminophen (Tylenol) 650 mg PRN Q6HRS PRN PO MILD PAIN / TEMP > 100.3'F 05/27/20 16:30 Multi-Ingredient Ointment (Analgesic [place]) 1 herman PRN QID PRN TP MUSCLE PAIN 05/27/20 16:30 Al Hydroxide/Mg Hydroxide (Mylanta Plus Xs) 15 ml PRN AFTMEALHC PRN PO DYSPEPSIA 05/27/20 16:30 Magnesium Hydroxide (Milk Of Magnesia) 2,400 mg PRN QHS PRN PO CONSTIPATION 05/27/20 16:30 Acetaminophen (Tylenol) 500 mg PRN Q6HRS PRN PO PAIN 05/27/20 18:15 UNV Aspirin (Aspirin Chewable) 81 mg DAILY PO 05/28/20 09:00 06/14/20 08:05 Docusate Sodium (Colace) 100 mg BID PO 05/27/20 21:00 06/08/20 12:12 DC 06/07/20 19:57 Donepezil HCl (Aricept) 10 mg HS PO 05/27/20 21:00 05/31/20 16:33 DC 05/30/20 20:39 Fluticasone Propionate (Flonase) 1 spray DAILY NS 05/28/20 09:00 06/14/20 08:05 Memantine (Namenda) 10 mg BID PO 05/27/20 21:00 05/31/20 16:33 DC 05/31/20 08:00 Quetiapine Fumarate (SEROquel) 100 mg QHS PO 05/27/20 21:00 06/04/20 16:21 DC 06/03/20 20:12 Trazodone HCl (Desyrel) 50 mg QHS PO 05/27/20 21:00 05/28/20 11:16 DC 05/27/20 20:02 Cyanocobalamin (Vitamin B-12) 100 mcg DAILY PO 05/28/20 09:00 06/14/20 08:05 Non-Formulary Medication (Ergocalciferol (Vitamin D2) (Vitamin D2)) 1,250 mcg WEEKLY PO 06/03/20 09:00 UNV Fluvoxamine Maleate (Luvox) 50 mg QHS PO 05/27/20 21:00 06/04/20 16:21 DC 06/03/20 20:12 Cetirizine HCl (ZyrTEC) 10 mg DAILY PO 05/28/20 09:00 06/14/20 08:05 Melatonin (Melatonin) 9 mg HS PO 05/27/20 21:00 05/28/20 11:16 DC 05/27/20 20:02 Multivitamins/ Calcium (Thera-M Plus) 1 tab DAILY PO 05/28/20 09:00 06/14/20 08:05 Pantoprazole Sodium (Protonix) 40 mg DAILYAC PO 05/28/20 07:30 06/14/20 08:05 Ondansetron HCl (Zofran Odt) 4 mg PRN Q6HRS PRN PO NAUSEA/VOMITING 05/27/20 19:00 Polyethylene Glycol (miraLAX) 17 gm DAILY PO 05/28/20 09:00 06/14/20 08:05 Vitamin D (Vitamin D3) 50,000 unit WEEKLY PO 05/28/20 09:00 06/11/20 08:30 Melatonin (Melatonin) 6 mg PRN QHS PRN PO INSOMNIA, 1ST CHOICE 05/28/20 11:15 06/04/20 16:30 DC 06/03/20 20:13 Trazodone HCl (Desyrel) 50 mg PRN QHS PRN PO INSOMNIA, MAY REPEAT X1 05/28/20 20:00 06/04/20 16:29 DC 06/03/20 20:14 Olanzapine (ZyPREXA ZYDIS) 2.5 mg PRN Q2HR PRN PO PSYCHOSIS 05/29/20 18:00 06/08/20 20:41 Quetiapine Fumarate (SEROquel) 12.5 mg 0900,1300 PO 06/01/20 09:00 06/04/20 16:21 DC 06/04/20 12:59 Sertraline HCl (Zoloft) 25 mg DAILY PO 06/01/20 09:00 06/04/20 09:00 DC 06/04/20 09:42 Mirtazapine (Remeron) 7.5 mg QHS PO 06/01/20 21:45 06/14/20 19:31 Sertraline HCl (Zoloft) 50 mg DAILY PO 06/05/20 09:00 06/07/20 09:00 DC 06/07/20 07:51 Olanzapine (ZyPREXA) 2.5 mg 0900,1300,1700 PO 06/04/20 17:00 06/14/20 17:00 Trazodone HCl (Desyrel) 50 mg QHS PO 06/04/20 21:00 06/14/20 19:31 Melatonin (Melatonin) 6 mg QHS PO 06/04/20 21:00 06/14/20 19:31 Sertraline HCl (Zoloft) 75 mg DAILY PO 06/08/20 09:00 06/12/20 16:30 DC 06/12/20 07:26 Dextrose 1,000 ml @ 100 mls/hr Q10H IV 06/09/20 20:10 06/10/20 06:52 DC 06/09/20 23:00 Sertraline HCl (Zoloft) 100 mg DAILY PO 06/13/20 09:00 06/14/20 08:05 I have reviewed the current psychotropics carefully including drug interactions. Risk benefit ratio favors no change other than as noted in my dictated progress note. Diagnosis: Problems: (1) Major neurocognitive disorder (2) Impulse control disorder, unspecified (3) Anxiety disorder, unspecified (4) Dementia, vascular, with depression (5) Dementia, vascular, with delusions (6) Dementia in Alzheimer's disease with depression (7) Dementia in Alzheimer's disease with delusions (8) Dementia of the Alzheimer's type with early onset with behavioral disturbance AYLIN VALENCIA MD Jun 14, 2020 21:18
[2020-06-15 05:58] VITALS: BP 109/73
[2020-06-15] MEDS: OLANZapine 2.5 MG TABLET PO SCH ×3 (08:10→17:52)
[2020-06-15] MEDS: POLYETHYLENE GLYCOL 3350 17 GM PACKET. PO SCH (08:10)
[2020-06-15] MEDS: MULTIVITAMIN with MINERAL TABLET. PO SCH (08:10)
[2020-06-15] MEDS: SERTRALINE 100 MG TABLET. PO SCH (08:10)
[2020-06-15] MEDS: PANTOPRAZOLE 40 MG TABLET. PO SCH (08:10)
[2020-06-15] MEDS: CETIRIZINE HCL 10 MG TABLET PO SCH (08:10)
[2020-06-15] MEDS: ASPIRIN CHEWABLE 81 MG TABLET. PO SCH (08:10)
[2020-06-15] MEDS: FLUTICASONE 50MCG/NASAL SPRAY 16GM BOTTLE. NS SCH (08:11)
[2020-06-15] MEDS: CYANOCOBALAMIN (VITAMIN B-12) 100 MCG TABLET PO SCH (08:11)
[2020-06-15 16:01] VITALS: BP 126/84
[2020-06-15] MEDS: traZODone 50 MG TABLET. PO SCH (20:28)
[2020-06-15] MEDS: MELATONIN 3 MG TABLET PO SCH (20:28)
[2020-06-15] MEDS: MIRTAZAPINE 7.5 MG TABLET. PO SCH (20:28)
--- NOTE | 2020-06-15 21:00 | PDOC ---
Exam Note: Floyd Note: This note is a late entry for 06/13/2020 covers elements not covered in my initial note. Subjective: The patient was seen face to face in the evening of 06/13/2020 with Leslie DE LA GARZA, discussed and reviewed the chart. He slept 5-1/4 hours previous night. He put himself on the floor once, rest of the time he has been better. He had a telephone call with his family, unable to recognize family. He is compliant with medications. Review of Systems: No CV, , pulmonary, eye, ENT system symptoms on review. Mental Status Exam: The patient is oriented to himself. Insight and judgement, recent and remote memory, attention and concentration, fund of knowledge is poor consistent with his diagnosis. Laboratory Data: Reviewed. Impression: Major neurocognitive disorder Alzheimer vascular with delusion, depression, behavioral disturbance. Anxiety disorder unspecified. Impulse control disorder unspecified. Plan: No change from initial note. Assessment: Vital Signs/I&O: Vital Signs Date Time Temp Pulse Resp B/P (MAP) Pulse Ox O2 Delivery O2 Flow Rate FiO2 06/15/20 16:01 98.1 80 20 126/84 (98) 96 06/14/20 15:53 Room Air I & O 06/14/20 06/14/20 06/15/20 14:59 22:59 06:59 Intake Total 480 ml 720 ml Balance 480 ml 720 ml Current Medications: Meds: Current Medications Medications (Trade) Dose Ordered Sig/Neftali Route PRN Reason Start Time Stop Time Status Last Admin Dose Admin Acetaminophen (Tylenol) 650 mg PRN Q6HRS PRN PO MILD PAIN / TEMP > 100.3'F 05/27/20 16:30 Multi-Ingredient Ointment (Analgesic [place]) 1 herman PRN QID PRN TP MUSCLE PAIN 05/27/20 16:30 Al Hydroxide/Mg Hydroxide (Mylanta Plus Xs) 15 ml PRN AFTMEALHC PRN PO DYSPEPSIA 05/27/20 16:30 Magnesium Hydroxide (Milk Of Magnesia) 2,400 mg PRN QHS PRN PO CONSTIPATION 05/27/20 16:30 Acetaminophen (Tylenol) 500 mg PRN Q6HRS PRN PO PAIN 05/27/20 18:15 UNV Aspirin (Aspirin Chewable) 81 mg DAILY PO 05/28/20 09:00 3/1/21 08:10 Docusate Sodium (Colace) 100 mg BID PO 05/27/20 21:00 06/08/20 12:12 DC 06/07/20 19:57 Donepezil HCl (Aricept) 10 mg HS PO 05/27/20 21:00 05/31/20 16:33 DC 05/30/20 20:39 Fluticasone Propionate (Flonase) 1 spray DAILY NS 05/28/20 09:00 06/15/20 08:11 Memantine (Namenda) 10 mg BID PO 05/27/20 21:00 05/31/20 16:33 DC 05/31/20 08:00 Quetiapine Fumarate (SEROquel) 100 mg QHS PO 05/27/20 21:00 06/04/20 16:21 DC 06/03/20 20:12 Trazodone HCl (Desyrel) 50 mg QHS PO 05/27/20 21:00 05/28/20 11:16 DC 05/27/20 20:02 Cyanocobalamin (Vitamin B-12) 100 mcg DAILY PO 05/28/20 09:00 06/15/20 08:11 Non-Formulary Medication (Ergocalciferol (Vitamin D2) (Vitamin D2)) 1,250 mcg WEEKLY PO 06/03/20 09:00 UNV Fluvoxamine Maleate (Luvox) 50 mg QHS PO 05/27/20 21:00 06/04/20 16:21 DC 06/03/20 20:12 Cetirizine HCl (ZyrTEC) 10 mg DAILY PO 05/28/20 09:00 06/15/20 08:10 Melatonin (Melatonin) 9 mg HS PO 05/27/20 21:00 05/28/20 11:16 DC 05/27/20 20:02 Multivitamins/ Calcium (Thera-M Plus) 1 tab DAILY PO 05/28/20 09:00 06/15/20 08:10 Pantoprazole Sodium (Protonix) 40 mg DAILYAC PO 05/28/20 07:30 06/15/20 08:10 Ondansetron HCl (Zofran Odt) 4 mg PRN Q6HRS PRN PO NAUSEA/VOMITING 05/27/20 19:00 Polyethylene Glycol (miraLAX) 17 gm DAILY PO 05/28/20 09:00 06/15/20 08:10 Vitamin D (Vitamin D3) 50,000 unit WEEKLY PO 05/28/20 09:00 06/11/20 08:30 Melatonin (Melatonin) 6 mg PRN QHS PRN PO INSOMNIA, 1ST CHOICE 05/28/20 11:15 06/04/20 16:30 DC 06/03/20 20:13 Trazodone HCl (Desyrel) 50 mg PRN QHS PRN PO INSOMNIA, MAY REPEAT X1 05/28/20 20:00 06/04/20 16:29 DC 06/03/20 20:14 Olanzapine (ZyPREXA ZYDIS) 2.5 mg PRN Q2HR PRN PO PSYCHOSIS 05/29/20 18:00 06/08/20 20:41 Quetiapine Fumarate (SEROquel) 12.5 mg 0900,1300 PO 06/01/20 09:00 06/04/20 16:21 DC 06/04/20 12:59 Sertraline HCl (Zoloft) 25 mg DAILY PO 06/01/20 09:00 06/04/20 09:00 DC 06/04/20 09:42 Mirtazapine (Remeron) 7.5 mg QHS PO 06/01/20 21:45 06/15/20 20:28 Sertraline HCl (Zoloft) 50 mg DAILY PO 06/05/20 09:00 06/07/20 09:00 DC 06/07/20 07:51 Olanzapine (ZyPREXA) 2.5 mg 0900,1300,1700 PO 06/04/20 17:00 06/15/20 17:52 Trazodone HCl (Desyrel) 50 mg QHS PO 06/04/20 21:00 06/15/20 20:28 Melatonin (Melatonin) 6 mg QHS PO 06/04/20 21:00 06/15/20 20:28 Sertraline HCl (Zoloft) 75 mg DAILY PO 06/08/20 09:00 06/12/20 16:30 DC 06/12/20 07:26 Dextrose 1,000 ml @ 100 mls/hr Q10H IV 06/09/20 20:10 06/10/20 06:52 DC 06/09/20 23:00 Sertraline HCl (Zoloft) 100 mg DAILY PO 06/13/20 09:00 06/15/20 08:10 I have reviewed the current psychotropics carefully including drug interactions. Risk benefit ratio favors no change other than as noted in my dictated progress note. Diagnosis: Problems: (1) Major neurocognitive disorder (2) Impulse control disorder, unspecified (3) Anxiety disorder, unspecified (4) Dementia, vascular, with depression (5) Dementia, vascular, with delusions (6) Dementia in Alzheimer's disease with depression (7) Dementia in Alzheimer's disease with delusions (8) Dementia of the Alzheimer's type with early onset with behavioral disturbance AYLIN VALENCIA MD Jun 15, 2020 21:00
--- NOTE | 2020-06-15 21:24 | PDOC ---
Exam Note: Floyd Note: This note is a late entry for 06/14/2020 covers elements not covered in my initial note. Subjective: The patient was seen face to face in the evening of 06/14/2020 with Leslie DE LA GARZA, discussed and reviewed the chart. He slept 9-1/4 hours previous night. Again he has put himself once on the floor today, incontinent earlier in the day, went to shower and was cooperative with this. He had another telephone conversation with his , unable to recognize her. He is compliant with medications. I met with him individually in his room. Review of Systems: No CV, , pulmonary, eye system symptoms on review. Reliability poor. He is oblivious of his surroundings. Mental Status Exam: The patient is oriented to himself. Insight and judgement, recent and remote memory, attention and concentration, fund of knowledge is poor consistent with his diagnosis. Laboratory Data: Reviewed. Impression: Major neurocognitive disorder Alzheimer vascular with delusion, depression, behavioral disturbance. Anxiety disorder unspecified. Impulse control disorder unspecified. Plan: No change from initial note. Assessment: Vital Signs/I&O: Vital Signs Date Time Temp Pulse Resp B/P (MAP) Pulse Ox O2 Delivery O2 Flow Rate FiO2 06/15/20 16:01 98.1 80 20 126/84 (98) 96 06/14/20 15:53 Room Air I & O 06/14/20 06/14/20 06/15/20 15:00 23:00 07:00 Intake Total 480 ml 720 ml Balance 480 ml 720 ml Current Medications: Meds: Current Medications Medications (Trade) Dose Ordered Sig/Neftali Route PRN Reason Start Time Stop Time Status Last Admin Dose Admin Acetaminophen (Tylenol) 650 mg PRN Q6HRS PRN PO MILD PAIN / TEMP > 100.3'F 05/27/20 16:30 Multi-Ingredient Ointment (Analgesic [place]) 1 herman PRN QID PRN TP MUSCLE PAIN 05/27/20 16:30 Al Hydroxide/Mg Hydroxide (Mylanta Plus Xs) 15 ml PRN AFTMEALHC PRN PO DYSPEPSIA 05/27/20 16:30 Magnesium Hydroxide (Milk Of Magnesia) 2,400 mg PRN QHS PRN PO CONSTIPATION 05/27/20 16:30 Acetaminophen (Tylenol) 500 mg PRN Q6HRS PRN PO PAIN 05/27/20 18:15 UNV Aspirin (Aspirin Chewable) 81 mg DAILY PO 05/28/20 09:00 06/15/20 08:10 Docusate Sodium (Colace) 100 mg BID PO 05/27/20 21:00 06/08/20 12:12 DC 06/07/20 19:57 Donepezil HCl (Aricept) 10 mg HS PO 05/27/20 21:00 05/31/20 16:33 DC 05/30/20 20:39 Fluticasone Propionate (Flonase) 1 spray DAILY NS 05/28/20 09:00 06/15/20 08:11 Memantine (Namenda) 10 mg BID PO 05/27/20 21:00 05/31/20 16:33 DC 05/31/20 08:00 Quetiapine Fumarate (SEROquel) 100 mg QHS PO 05/27/20 21:00 06/04/20 16:21 DC 06/03/20 20:12 Trazodone HCl (Desyrel) 50 mg QHS PO 05/27/20 21:00 05/28/20 11:16 DC 05/27/20 20:02 Cyanocobalamin (Vitamin B-12) 100 mcg DAILY PO 05/28/20 09:00 06/15/20 08:11 Non-Formulary Medication (Ergocalciferol (Vitamin D2) (Vitamin D2)) 1,250 mcg WEEKLY PO 06/03/20 09:00 UNV Fluvoxamine Maleate (Luvox) 50 mg QHS PO 05/27/20 21:00 06/04/20 16:21 DC 06/03/20 20:12 Cetirizine HCl (ZyrTEC) 10 mg DAILY PO 05/28/20 09:00 06/15/20 08:10 Melatonin (Melatonin) 9 mg HS PO 05/27/20 21:00 05/28/20 11:16 DC 05/27/20 20:02 Multivitamins/ Calcium (Thera-M Plus) 1 tab DAILY PO 05/28/20 09:00 06/15/20 08:10 Pantoprazole Sodium (Protonix) 40 mg DAILYAC PO 05/28/20 07:30 06/15/20 08:10 Ondansetron HCl (Zofran Odt) 4 mg PRN Q6HRS PRN PO NAUSEA/VOMITING 05/27/20 19:00 Polyethylene Glycol (miraLAX) 17 gm DAILY PO 05/28/20 09:00 06/15/20 08:10 Vitamin D (Vitamin D3) 50,000 unit WEEKLY PO 05/28/20 09:00 06/11/20 08:30 Melatonin (Melatonin) 6 mg PRN QHS PRN PO INSOMNIA, 1ST CHOICE 05/28/20 11:15 06/04/20 16:30 DC 06/03/20 20:13 Trazodone HCl (Desyrel) 50 mg PRN QHS PRN PO INSOMNIA, MAY REPEAT X1 05/28/20 20:00 06/04/20 16:29 DC 06/03/20 20:14 Olanzapine (ZyPREXA ZYDIS) 2.5 mg PRN Q2HR PRN PO PSYCHOSIS 05/29/20 18:00 06/08/20 20:41 Quetiapine Fumarate (SEROquel) 12.5 mg 0900,1300 PO 06/01/20 09:00 06/04/20 16:21 DC 06/04/20 12:59 Sertraline HCl (Zoloft) 25 mg DAILY PO 06/01/20 09:00 06/04/20 09:00 DC 06/04/20 09:42 Mirtazapine (Remeron) 7.5 mg QHS PO 06/01/20 21:45 06/15/20 20:28 Sertraline HCl (Zoloft) 50 mg DAILY PO 06/05/20 09:00 06/07/20 09:00 DC 06/07/20 07:51 Olanzapine (ZyPREXA) 2.5 mg 0900,1300,1700 PO 06/04/20 17:00 06/15/20 17:52 Trazodone HCl (Desyrel) 50 mg QHS PO 06/04/20 21:00 06/15/20 20:28 Melatonin (Melatonin) 6 mg QHS PO 06/04/20 21:00 06/15/20 20:28 Sertraline HCl (Zoloft) 75 mg DAILY PO 06/08/20 09:00 06/12/20 16:30 DC 06/12/20 07:26 Dextrose 1,000 ml @ 100 mls/hr Q10H IV 06/09/20 20:10 06/10/20 06:52 DC 06/09/20 23:00 Sertraline HCl (Zoloft) 100 mg DAILY PO 06/13/20 09:00 06/15/20 08:10 I have reviewed the current psychotropics carefully including drug interactions. Risk benefit ratio favors no change other than as noted in my dictated progress note. Diagnosis: Problems: (1) Major neurocognitive disorder (2) Impulse control disorder, unspecified (3) Anxiety disorder, unspecified (4) Dementia, vascular, with depression (5) Dementia, vascular, with delusions (6) Dementia in Alzheimer's disease with depression (7) Dementia in Alzheimer's disease with delusions (8) Dementia of the Alzheimer's type with early onset with behavioral disturbance AYLIN VALENCIA MD Jun 15, 2020 21:24
--- NOTE | 2020-06-15 21:52 | PDOC ---
Exam Note: Floyd Note: Please also refer to the separate dictated note~for this date of service dictated separately.~Patient seen individually. Discussed the patient with Nursing staff reviewed the chart.~Reviewed interim history and current functioning. Reviewed vital signs,~Labs/ Radiology~and current medications noted below. Continue current treatment with the changes noted in the dictated addendum note Assessment: Vital Signs/I&O: Vital Signs Date Time Temp Pulse Resp B/P (MAP) Pulse Ox O2 Delivery O2 Flow Rate FiO2 06/15/20 16:01 98.1 80 20 126/84 (98) 96 06/14/20 15:53 Room Air I & O 06/14/20 06/14/20 06/15/20 15:00 23:00 07:00 Intake Total 480 ml 720 ml Balance 480 ml 720 ml Current Medications: Meds: Current Medications Medications (Trade) Dose Ordered Sig/Neftali Route PRN Reason Start Time Stop Time Status Last Admin Dose Admin Acetaminophen (Tylenol) 650 mg PRN Q6HRS PRN PO MILD PAIN / TEMP > 100.3'F 05/27/20 16:30 Multi-Ingredient Ointment (Analgesic [place]) 1 herman PRN QID PRN TP MUSCLE PAIN 05/27/20 16:30 Al Hydroxide/Mg Hydroxide (Mylanta Plus Xs) 15 ml PRN AFTMEALHC PRN PO DYSPEPSIA 05/27/20 16:30 Magnesium Hydroxide (Milk Of Magnesia) 2,400 mg PRN QHS PRN PO CONSTIPATION 05/27/20 16:30 Acetaminophen (Tylenol) 500 mg PRN Q6HRS PRN PO PAIN 05/27/20 18:15 UNV Aspirin (Aspirin Chewable) 81 mg DAILY PO 05/28/20 09:00 06/15/20 08:10 Docusate Sodium (Colace) 100 mg BID PO 05/27/20 21:00 06/08/20 12:12 DC 06/07/20 19:57 Donepezil HCl (Aricept) 10 mg HS PO 05/27/20 21:00 05/31/20 16:33 DC 05/30/20 20:39 Fluticasone Propionate (Flonase) 1 spray DAILY NS 05/28/20 09:00 06/15/20 08:11 Memantine (Namenda) 10 mg BID PO 05/27/20 21:00 05/31/20 16:33 DC 05/31/20 08:00 Quetiapine Fumarate (SEROquel) 100 mg QHS PO 05/27/20 21:00 06/04/20 16:21 DC 06/03/20 20:12 Trazodone HCl (Desyrel) 50 mg QHS PO 05/27/20 21:00 05/28/20 11:16 DC 05/27/20 20:02 Cyanocobalamin (Vitamin B-12) 100 mcg DAILY PO 05/28/20 09:00 06/15/20 08:11 Non-Formulary Medication (Ergocalciferol (Vitamin D2) (Vitamin D2)) 1,250 mcg WEEKLY PO 06/03/20 09:00 UNV Fluvoxamine Maleate (Luvox) 50 mg QHS PO 05/27/20 21:00 06/04/20 16:21 DC 06/03/20 20:12 Cetirizine HCl (ZyrTEC) 10 mg DAILY PO 05/28/20 09:00 06/15/20 08:10 Melatonin (Melatonin) 9 mg HS PO 05/27/20 21:00 05/28/20 11:16 DC 05/27/20 20:02 Multivitamins/ Calcium (Thera-M Plus) 1 tab DAILY PO 05/28/20 09:00 06/15/20 08:10 Pantoprazole Sodium (Protonix) 40 mg DAILYAC PO 05/28/20 07:30 06/15/20 08:10 Ondansetron HCl (Zofran Odt) 4 mg PRN Q6HRS PRN PO NAUSEA/VOMITING 05/27/20 19:00 Polyethylene Glycol (miraLAX) 17 gm DAILY PO 05/28/20 09:00 06/15/20 08:10 Vitamin D (Vitamin D3) 50,000 unit WEEKLY PO 05/28/20 09:00 06/11/20 08:30 Melatonin (Melatonin) 6 mg PRN QHS PRN PO INSOMNIA, 1ST CHOICE 05/28/20 11:15 06/04/20 16:30 DC 06/03/20 20:13 Trazodone HCl (Desyrel) 50 mg PRN QHS PRN PO INSOMNIA, MAY REPEAT X1 05/28/20 20:00 06/04/20 16:29 DC 06/03/20 20:14 Olanzapine (ZyPREXA ZYDIS) 2.5 mg PRN Q2HR PRN PO PSYCHOSIS 05/29/20 18:00 06/08/20 20:41 Quetiapine Fumarate (SEROquel) 12.5 mg 0900,1300 PO 06/01/20 09:00 06/04/20 16:21 DC 06/04/20 12:59 Sertraline HCl (Zoloft) 25 mg DAILY PO 06/01/20 09:00 06/04/20 09:00 DC 06/04/20 09:42 Mirtazapine (Remeron) 7.5 mg QHS PO 06/01/20 21:45 06/15/20 20:28 Sertraline HCl (Zoloft) 50 mg DAILY PO 06/05/20 09:00 06/07/20 09:00 DC 06/07/20 07:51 Olanzapine (ZyPREXA) 2.5 mg 0900,1300,1700 PO 06/04/20 17:00 06/15/20 17:52 Trazodone HCl (Desyrel) 50 mg QHS PO 06/04/20 21:00 06/15/20 20:28 Melatonin (Melatonin) 6 mg QHS PO 06/04/20 21:00 06/15/20 20:28 Sertraline HCl (Zoloft) 75 mg DAILY PO 06/08/20 09:00 06/12/20 16:30 DC 06/12/20 07:26 Dextrose 1,000 ml @ 100 mls/hr Q10H IV 06/09/20 20:10 06/10/20 06:52 DC 06/09/20 23:00 Sertraline HCl (Zoloft) 100 mg DAILY PO 06/13/20 09:00 06/15/20 08:10 I have reviewed the current psychotropics carefully including drug interactions. Risk benefit ratio favors no change other than as noted in my dictated progress note. Diagnosis: Problems: (1) Major neurocognitive disorder (2) Impulse control disorder, unspecified (3) Anxiety disorder, unspecified (4) Dementia, vascular, with depression (5) Dementia, vascular, with delusions (6) Dementia in Alzheimer's disease with depression (7) Dementia in Alzheimer's disease with delusions (8) Dementia of the Alzheimer's type with early onset with behavioral disturbance AYLIN VALENCIA MD Jun 15, 2020 21:52
[2020-06-16] MEDS ORDERED: MELA3TAB4 PO (05:12)
[2020-06-16] MEDS ORDERED: CHOL500021 PO (05:12)
[2020-06-16] MEDS ORDERED: MAGN400O7 PO (05:13)
[2020-06-16] MEDS ORDERED: MAG30ORA2 PO (05:14)
[2020-06-16] MEDS ORDERED: OLAN5TAB9 PO (05:15)
[2020-06-16] MEDS ORDERED: OLAN2.5T3 PO (05:16)
[2020-06-16] MEDS ORDERED: MIRT7.5T8 PO (05:17)
[2020-06-16] MEDS ORDERED: SERT100T PO (05:17)
[2020-06-16] MEDS ORDERED: METH28OI2 TP (05:18)
[2020-06-16 06:00] VITALS: BP 106/72
[2020-06-16] MEDS: ASPIRIN CHEWABLE 81 MG TABLET. PO SCH (08:12)
[2020-06-16] MEDS: PANTOPRAZOLE 40 MG TABLET. PO SCH (08:12)
[2020-06-16] MEDS: MULTIVITAMIN with MINERAL TABLET. PO SCH (08:12)
[2020-06-16] MEDS: OLANZapine 2.5 MG TABLET PO SCH ×3 (08:12→17:00)
[2020-06-16] MEDS: SERTRALINE 100 MG TABLET. PO SCH (08:12)
[2020-06-16] MEDS: CETIRIZINE HCL 10 MG TABLET PO SCH (08:12)
[2020-06-16] MEDS: POLYETHYLENE GLYCOL 3350 17 GM PACKET. PO SCH (08:12)
[2020-06-16] MEDS: FLUTICASONE 50MCG/NASAL SPRAY 16GM BOTTLE. NS SCH (08:13)
[2020-06-16] MEDS: CYANOCOBALAMIN (VITAMIN B-12) 100 MCG TABLET PO SCH (08:13)
[2020-06-16 09:45] LABS: ALBUMIN 4.1 g/dL (3.4-5.0); ALBUMIN/GLOBULIN RATIO 1.2 (1.0-1.7); CALCIUM 9.6 mg/dL (8.5-10.1); CREATININE 1.2 mg/dL (0.7-1.3); TOTAL BILIRUBIN 2.1 mg/dL (0.2-1.0); TOTAL PROTEIN 7.4 g/dL (6.4-8.2)
[2020-06-16 10:00] LABS: BASO % 0 % (0-3); EOS # 0.1 x10^3/uL (0.0-0.7); EOS % 1 % (0-3); HEMATOCRIT 45.4 % (39.0-53.0); HEMOGLOBIN 14.9 g/dL (13.0-17.5); LYMPH # 0.9 x10^3/uL (1.0-4.8); LYMPH % 5 % (24-48); MEAN CORPUSCULAR HEMOGLOBIN 32 pg (25-35); MEAN CORPUSCULAR HGB CONC 33 g/dL (31-37); MEAN CORPUSCULAR VOLUME 97 fL (79-100); MONO # 0.4 x10^3/uL (0.0-1.1); MONO % 3 % (0-9); NEUT # 15.3 x10^3uL (1.8-7.7); NEUT % 91 % (31-73); PLATELET COUNT 156 x10^3/uL (140-400); RED BLOOD COUNT 4.67 x10^6/uL (4.30-5.70); RED CELL DISTRIBUTION WIDTH 13.9 % (11.5-14.5); WHITE BLOOD COUNT 16.7 x10^3/uL (4.0-11.0)
[2020-06-16 13:45] LABS: % ATYL 1 % (0-0); % BANDS 9 % (0-9); % LYMPHS 5 % (24-48); % MONOS 3 % (0-10); % SEGS 82 % (35-66); PLT ESTIMATE ADEQUATE (ADEQUATE)
[2020-06-16 13:46] LABS: BURR CELLS FEW
[2020-06-16 15:55] VITALS: BP 106/69
[2020-06-16] MEDS: MIRTAZAPINE 7.5 MG TABLET. PO SCH (20:50)
[2020-06-16] MEDS: MELATONIN 3 MG TABLET PO SCH (20:50)
[2020-06-16] MEDS: traZODone 50 MG TABLET. PO SCH (20:50)
--- NOTE | 2020-06-16 20:58 | PDOC ---
Exam Note: Floyd Note: Please also refer to the separate dictated note~for this date of service dictated separately.~Patient seen individually. Discussed the patient with Nursing staff reviewed the chart.~Reviewed interim history and current functioning. Reviewed vital signs,~Labs/ Radiology~and current medications noted below. Continue current treatment with the changes noted in the dictated addendum note Assessment: Vital Signs/I&O: Vital Signs Date Time Temp Pulse Resp B/P (MAP) Pulse Ox O2 Delivery O2 Flow Rate FiO2 06/16/20 15:55 98.1 82 16 106/69 (81) 93 06/14/20 15:53 Room Air I & O 06/15/20 06/15/20 06/16/20 15:00 23:00 07:00 Intake Total 720 ml 480 ml Balance 720 ml 480 ml Labs: Laboratory Tests Test 06/16/20 09:05 White Blood Count 16.7 x10^3/uL (4.0-11.0) H Red Blood Count 4.67 x10^6/uL (4.30-5.70) Hemoglobin 14.9 g/dL (13.0-17.5) Hematocrit 45.4 % (39.0-53.0) Mean Corpuscular Volume 97 fL (79-100) Mean Corpuscular Hemoglobin 32 pg (25-35) Mean Corpuscular Hemoglobin Concent 33 g/dL (31-37) Red Cell Distribution Width 13.9 % (11.5-14.5) Platelet Count 156 x10^3/uL (140-400) Neutrophils (%) (Auto) 91 % (31-73) H Lymphocytes (%) (Auto) 5 % (24-48) L Monocytes (%) (Auto) 3 % (0-9) Eosinophils (%) (Auto) 1 % (0-3) Basophils (%) (Auto) 0 % (0-3) Neutrophils # (Auto) 15.3 x10^3uL (1.8-7.7) H Lymphocytes # (Auto) 0.9 x10^3/uL (1.0-4.8) L Monocytes # (Auto) 0.4 x10^3/uL (0.0-1.1) Eosinophils # (Auto) 0.1 x10^3/uL (0.0-0.7) Basophils # (Auto) 0.0 x10^3/uL (0.0-0.2) Segmented Neutrophils % 82 % (35-66) H Band Neutrophils % 9 % (0-9) Lymphocytes % 5 % (24-48) L Atypical Lymphocytes % (Manual) 1 % (0-0) H Monocytes % 3 % (0-10) Platelet Estimate Adequate (ADEQUATE) [place] Cells Few Sodium Level 147 mmol/L (136-145) H Potassium Level 4.0 mmol/L (3.5-5.1) Chloride Level 108 mmol/L (98-107) H Carbon Dioxide Level 29 mmol/L (21-32) Anion Gap 10 (6-14) Blood Urea Nitrogen 18 mg/dL (8-26) Creatinine 1.2 mg/dL (0.7-1.3) Estimated GFR (Cockcroft-Gault) 61.0 BUN/Creatinine Ratio 15 (6-20) Glucose Level 151 mg/dL (70-99) H Calcium Level 9.6 mg/dL (8.5-10.1) Total Bilirubin 2.1 mg/dL (0.2-1.0) H Aspartate Amino Transferase (AST) 28 U/L (15-37) Alanine Aminotransferase (ALT) 42 U/L (16-63) Alkaline Phosphatase 89 U/L (46-116) Total Protein 7.4 g/dL (6.4-8.2) Albumin 4.1 g/dL (3.4-5.0) Albumin/Globulin Ratio 1.2 (1.0-1.7) Current Medications: Meds: Laboratory Tests Test 06/16/20 09:05 White Blood Count 16.7 x10^3/uL Red Blood Count 4.67 x10^6/uL Hemoglobin 14.9 g/dL Hematocrit 45.4 % Mean Corpuscular Volume 97 fL Mean Corpuscular Hemoglobin 32 pg Mean Corpuscular Hemoglobin Concent 33 g/dL Red Cell Distribution Width 13.9 % Platelet Count 156 x10^3/uL Neutrophils (%) (Auto) 91 % Lymphocytes (%) (Auto) 5 % Monocytes (%) (Auto) 3 % Eosinophils (%) (Auto) 1 % Basophils (%) (Auto) 0 % Neutrophils # (Auto) 15.3 x10^3uL Lymphocytes # (Auto) 0.9 x10^3/uL Monocytes # (Auto) 0.4 x10^3/uL Eosinophils # (Auto) 0.1 x10^3/uL Basophils # (Auto) 0.0 x10^3/uL Segmented Neutrophils % 82 % Band Neutrophils % 9 % Lymphocytes % 5 % Atypical Lymphocytes % (Manual) 1 % Monocytes % 3 % Platelet Estimate Adequate [place] Cells Few Sodium Level 147 mmol/L Potassium Level 4.0 mmol/L Chloride Level 108 mmol/L Carbon Dioxide Level 29 mmol/L Anion Gap 10 Blood Urea Nitrogen 18 mg/dL Creatinine 1.2 mg/dL Estimated GFR (Cockcroft-Gault) 61.0 BUN/Creatinine Ratio 15 Glucose Level 151 mg/dL Calcium Level 9.6 mg/dL Total Bilirubin 2.1 mg/dL Aspartate Amino Transf (AST/SGOT) 28 U/L Alanine Aminotransferase (ALT/SGPT) 42 U/L Alkaline Phosphatase 89 U/L Total Protein 7.4 g/dL Albumin 4.1 g/dL Albumin/Globulin Ratio 1.2 Current Medications Medications (Trade) Dose Ordered Sig/Neftali Route PRN Reason Start Time Stop Time Status Last Admin Dose Admin Acetaminophen (Tylenol) 650 mg PRN Q6HRS PRN PO MILD PAIN / TEMP > 100.3'F 05/27/20 16:30 Multi-Ingredient Ointment (Analgesic [place]) 1 herman PRN QID PRN TP MUSCLE PAIN 05/27/20 16:30 Al Hydroxide/Mg Hydroxide (Mylanta Plus Xs) 15 ml PRN AFTMEALHC PRN PO DYSPEPSIA 05/27/20 16:30 Magnesium Hydroxide (Milk Of Magnesia) 2,400 mg PRN QHS PRN PO CONSTIPATION 05/27/20 16:30 Acetaminophen (Tylenol) 500 mg PRN Q6HRS PRN PO PAIN 05/27/20 18:15 UNV Aspirin (Aspirin Chewable) 81 mg DAILY PO 05/28/20 09:00 06/16/20 08:12 Docusate Sodium (Colace) 100 mg BID PO 05/27/20 21:00 06/08/20 12:12 DC 06/07/20 19:57 Donepezil HCl (Aricept) 10 mg HS PO 05/27/20 21:00 05/31/20 16:33 DC 05/30/20 20:39 Fluticasone Propionate (Flonase) 1 spray DAILY NS 05/28/20 09:00 06/16/20 08:13 Memantine (Namenda) 10 mg BID PO 05/27/20 21:00 05/31/20 16:33 DC 05/31/20 08:00 Quetiapine Fumarate (SEROquel) 100 mg QHS PO 05/27/20 21:00 06/04/20 16:21 DC 06/03/20 20:12 Trazodone HCl (Desyrel) 50 mg QHS PO 05/27/20 21:00 05/28/20 11:16 DC 05/27/20 20:02 Cyanocobalamin (Vitamin B-12) 100 mcg DAILY PO 05/28/20 09:00 06/16/20 08:13 Non-Formulary Medication (Ergocalciferol (Vitamin D2) (Vitamin D2)) 1,250 mcg WEEKLY PO 06/03/20 09:00 UNV Fluvoxamine Maleate (Luvox) 50 mg QHS PO 05/27/20 21:00 06/04/20 16:21 DC 06/03/20 20:12 Cetirizine HCl (ZyrTEC) 10 mg DAILY PO 05/28/20 09:00 06/16/20 08:12 Melatonin (Melatonin) 9 mg HS PO 05/27/20 21:00 05/28/20 11:16 DC 05/27/20 20:02 Multivitamins/ Calcium (Thera-M Plus) 1 tab DAILY PO 05/28/20 09:00 06/16/20 08:12 Pantoprazole Sodium (Protonix) 40 mg DAILYAC PO 05/28/20 07:30 06/16/20 08:12 Ondansetron HCl (Zofran Odt) 4 mg PRN Q6HRS PRN PO NAUSEA/VOMITING 05/27/20 19:00 Polyethylene Glycol (miraLAX) 17 gm DAILY PO 05/28/20 09:00 06/16/20 08:12 Vitamin D (Vitamin D3) 50,000 unit WEEKLY PO 05/28/20 09:00 06/11/20 08:30 Melatonin (Melatonin) 6 mg PRN QHS PRN PO INSOMNIA, 1ST CHOICE 05/28/20 11:15 06/04/20 16:30 DC 06/03/20 20:13 Trazodone HCl (Desyrel) 50 mg PRN QHS PRN PO INSOMNIA, MAY REPEAT X1 05/28/20 20:00 06/04/20 16:29 DC 06/03/20 20:14 Olanzapine (ZyPREXA ZYDIS) 2.5 mg PRN Q2HR PRN PO PSYCHOSIS 05/29/20 18:00 06/08/20 20:41 Quetiapine Fumarate (SEROquel) 12.5 mg 0900,1300 PO 06/01/20 09:00 06/04/20 16:21 DC 06/04/20 12:59 Sertraline HCl (Zoloft) 25 mg DAILY PO 06/01/20 09:00 06/04/20 09:00 DC 06/04/20 09:42 Mirtazapine (Remeron) 7.5 mg QHS PO 06/01/20 21:45 06/16/20 20:50 Sertraline HCl (Zoloft) 50 mg DAILY PO 06/05/20 09:00 06/07/20 09:00 DC 06/07/20 07:51 Olanzapine (ZyPREXA) 2.5 mg 0900,1300,1700 PO 06/04/20 17:00 06/16/20 12:32 Trazodone HCl (Desyrel) 50 mg QHS PO 06/04/20 21:00 06/16/20 20:50 Melatonin (Melatonin) 6 mg QHS PO 06/04/20 21:00 06/16/20 20:50 Sertraline HCl (Zoloft) 75 mg DAILY PO 06/08/20 09:00 06/12/20 16:30 DC 06/12/20 07:26 Dextrose 1,000 ml @ 100 mls/hr Q10H IV 06/09/20 20:10 06/10/20 06:52 DC 06/09/20 23:00 Sertraline HCl (Zoloft) 100 mg DAILY PO 06/13/20 09:00 06/16/20 08:12 I have reviewed the current psychotropics carefully including drug interactions. Risk benefit ratio favors no change other than as noted in my dictated progress note. Diagnosis: Problems: (1) Major neurocognitive disorder (2) Impulse control disorder, unspecified (3) Anxiety disorder, unspecified (4) Dementia, vascular, with depression (5) Dementia, vascular, with delusions (6) Dementia in Alzheimer's disease with depression (7) Dementia in Alzheimer's disease with delusions (8) Dementia of the Alzheimer's type with early onset with behavioral disturbance AYLIN VALENCIA MD Jun 16, 2020 20:58
[2020-06-17 06:03] VITALS: BP 124/80
[2020-06-17] MEDS: PANTOPRAZOLE 40 MG TABLET. PO SCH (08:26)
[2020-06-17] MEDS: OLANZapine 2.5 MG TABLET PO SCH ×2 (08:26→12:33)
[2020-06-17] MEDS: CYANOCOBALAMIN (VITAMIN B-12) 100 MCG TABLET PO SCH (08:27)
[2020-06-17] MEDS: ASPIRIN CHEWABLE 81 MG TABLET. PO SCH (08:27)
[2020-06-17] MEDS: MULTIVITAMIN with MINERAL TABLET. PO SCH (08:27)
[2020-06-17] MEDS: FLUTICASONE 50MCG/NASAL SPRAY 16GM BOTTLE. NS SCH (08:27)
[2020-06-17] MEDS: CETIRIZINE HCL 10 MG TABLET PO SCH (08:27)
[2020-06-17] MEDS: POLYETHYLENE GLYCOL 3350 17 GM PACKET. PO SCH (08:27)
[2020-06-17] MEDS: SERTRALINE 100 MG TABLET. PO SCH (08:27)
--- NOTE | 2020-06-17 09:46 | PDOC ---
Exam Note: Floyd Note: This note is a late entry for 06/15/2020 covers elements not covered in my initial note. Subjective: The patient was seen face to face in the evening of 06/15/2020 with Yaz DE LA GARZA, discussed and reviewed the chart. He slept 8-1/4 hours previous night. The patient has been confused, wandering, putting himself on the floor but less often. Review of Systems: No CV, , pulmonary, eye system symptoms on review. Reliability poor. Mental Status Exam: The patient is oriented to himself. Insight and judgement, recent and remote memory, attention and concentration, fund of knowledge is poor consistent with his diagnosis. Laboratory Data: Reviewed. Impression: Major neurocognitive disorder Alzheimer vascular with delusion, depression, behavioral disturbance. Anxiety disorder unspecified. Impulse control disorder unspecified. Plan: No change from initial note. Assessment: Vital Signs/I&O: Vital Signs Date Time Temp Pulse Resp B/P (MAP) Pulse Ox O2 Delivery O2 Flow Rate FiO2 06/17/20 06:03 97.9 72 16 124/80 (95) 95 06/14/20 15:53 Room Air I & O 06/16/20 06/16/20 06/17/20 15:00 23:00 07:00 Intake Total 1140 ml 120 ml Balance 1140 ml 120 ml Labs: Laboratory Tests Test 06/17/20 06:49 Direct Bilirubin 0.3 mg/dL (0.0-0.2) H Current Medications: Meds: Laboratory Tests Test 06/17/20 06:49 Direct Bilirubin 0.3 mg/dL Current Medications Medications (Trade) Dose Ordered Sig/Neftali Route PRN Reason Start Time Stop Time Status Last Admin Dose Admin Acetaminophen (Tylenol) 650 mg PRN Q6HRS PRN PO MILD PAIN / TEMP > 100.3'F 05/27/20 16:30 Multi-Ingredient Ointment (Analgesic [place]) 1 herman PRN QID PRN TP MUSCLE PAIN 05/27/20 16:30 Al Hydroxide/Mg Hydroxide (Mylanta Plus Xs) 15 ml PRN AFTMEALHC PRN PO DYSPEPSIA 05/27/20 16:30 Magnesium Hydroxide (Milk Of Magnesia) 2,400 mg PRN QHS PRN PO CONSTIPATION 05/27/20 16:30 Acetaminophen (Tylenol) 500 mg PRN Q6HRS PRN PO PAIN 05/27/20 18:15 UNV Aspirin (Aspirin Chewable) 81 mg DAILY PO 05/28/20 09:00 06/17/20 08:27 Docusate Sodium (Colace) 100 mg BID PO 05/27/20 21:00 06/08/20 12:12 DC 06/07/20 19:57 Donepezil HCl (Aricept) 10 mg HS PO 05/27/20 21:00 05/31/20 16:33 DC 05/30/20 20:39 Fluticasone Propionate (Flonase) 1 spray DAILY NS 05/28/20 09:00 06/17/20 08:27 Memantine (Namenda) 10 mg BID PO 05/27/20 21:00 05/31/20 16:33 DC 05/31/20 08:00 Quetiapine Fumarate (SEROquel) 100 mg QHS PO 05/27/20 21:00 06/04/20 16:21 DC 06/03/20 20:12 Trazodone HCl (Desyrel) 50 mg QHS PO 05/27/20 21:00 05/28/20 11:16 DC 05/27/20 20:02 Cyanocobalamin (Vitamin B-12) 100 mcg DAILY PO 05/28/20 09:00 06/17/20 08:27 Non-Formulary Medication (Ergocalciferol (Vitamin D2) (Vitamin D2)) 1,250 mcg WEEKLY PO 06/03/20 09:00 UNV Fluvoxamine Maleate (Luvox) 50 mg QHS PO 05/27/20 21:00 06/04/20 16:21 DC 06/03/20 20:12 Cetirizine HCl (ZyrTEC) 10 mg DAILY PO 05/28/20 09:00 06/17/20 08:27 Melatonin (Melatonin) 9 mg HS PO 05/27/20 21:00 05/28/20 11:16 DC 05/27/20 20:02 Multivitamins/ Calcium (Thera-M Plus) 1 tab DAILY PO 05/28/20 09:00 06/17/20 08:27 Pantoprazole Sodium (Protonix) 40 mg DAILYAC PO 05/28/20 07:30 06/17/20 08:26 Ondansetron HCl (Zofran Odt) 4 mg PRN Q6HRS PRN PO NAUSEA/VOMITING 05/27/20 19:00 Polyethylene Glycol (miraLAX) 17 gm DAILY PO 05/28/20 09:00 06/17/20 08:27 Vitamin D (Vitamin D3) 50,000 unit WEEKLY PO 05/28/20 09:00 06/11/20 08:30 Melatonin (Melatonin) 6 mg PRN QHS PRN PO INSOMNIA, 1ST CHOICE 05/28/20 11:15 06/04/20 16:30 DC 06/03/20 20:13 Trazodone HCl (Desyrel) 50 mg PRN QHS PRN PO INSOMNIA, MAY REPEAT X1 05/28/20 20:00 06/04/20 16:29 DC 06/03/20 20:14 Olanzapine (ZyPREXA ZYDIS) 2.5 mg PRN Q2HR PRN PO PSYCHOSIS 05/29/20 18:00 06/08/20 20:41 Quetiapine Fumarate (SEROquel) 12.5 mg 0900,1300 PO 06/01/20 09:00 06/04/20 16:21 DC 06/04/20 12:59 Sertraline HCl (Zoloft) 25 mg DAILY PO 06/01/20 09:00 06/04/20 09:00 DC 06/04/20 09:42 Mirtazapine (Remeron) 7.5 mg QHS PO 06/01/20 21:45 06/16/20 20:50 Sertraline HCl (Zoloft) 50 mg DAILY PO 06/05/20 09:00 06/07/20 09:00 DC 06/07/20 07:51 Olanzapine (ZyPREXA) 2.5 mg 0900,1300,1700 PO 06/04/20 17:00 06/17/20 08:26 Trazodone HCl (Desyrel) 50 mg QHS PO 06/04/20 21:00 06/16/20 20:50 Melatonin (Melatonin) 6 mg QHS PO 06/04/20 21:00 06/16/20 20:50 Sertraline HCl (Zoloft) 75 mg DAILY PO 06/08/20 09:00 06/12/20 16:30 DC 06/12/20 07:26 Dextrose 1,000 ml @ 100 mls/hr Q10H IV 06/09/20 20:10 06/10/20 06:52 DC 06/09/20 23:00 Sertraline HCl (Zoloft) 100 mg DAILY PO 06/13/20 09:00 06/17/20 08:27 I have reviewed the current psychotropics carefully including drug interactions. Risk benefit ratio favors no change other than as noted in my dictated progress note. Diagnosis: Problems: (1) Major neurocognitive disorder (2) Impulse control disorder, unspecified (3) Anxiety disorder, unspecified (4) Dementia, vascular, with depression (5) Dementia, vascular, with delusions (6) Dementia in Alzheimer's disease with depression (7) Dementia in Alzheimer's disease with delusions (8) Dementia of the Alzheimer's type with early onset with behavioral disturbance AYLIN VALENCIA MD Jun 17, 2020 09:46
[2020-06-17] MEDS ORDERED: ACET325T21 PO (10:17)
--- NOTE | 2020-06-17 10:17 | PDOC ---
Exam Note: Floyd Note: This note is a late entry for 06/16/2020 covers elements not covered in my initial note. Subjective: The patient was seen face to face in the evening of 06/16/2020 with Yaz DE LA GARZA, discussed and reviewed the chart. He slept 6-3/4 hours previous night. Overall the patient has not been putting himself on the floor like he was few days back. He is less anxious, still very confused. Review of Systems: No CV, , pulmonary, eye system symptoms on review. Reliability poor. Mental Status Exam: The patient is oriented to himself. Insight and judgement, recent and remote memory, attention and concentration, fund of knowledge is poor consistent with his diagnosis. He got out of his bed and was attempting to interact with me but very confused. Laboratory Data: Reviewed. Impression: Major neurocognitive disorder Alzheimer vascular with delusion, depression, behavioral disturbance. Anxiety disorder unspecified. Impulse control disorder unspecified. Plan: No change from initial note. Assessment: Vital Signs/I&O: Vital Signs Date Time Temp Pulse Resp B/P (MAP) Pulse Ox O2 Delivery O2 Flow Rate FiO2 06/17/20 06:03 97.9 72 16 124/80 (95) 95 06/14/20 15:53 Room Air I & O 06/16/20 06/16/20 06/17/20 15:00 23:00 07:00 Intake Total 1140 ml 120 ml Balance 1140 ml 120 ml Labs: Laboratory Tests Test 06/17/20 06:49 Direct Bilirubin 0.3 mg/dL (0.0-0.2) H Current Medications: Meds: Laboratory Tests Test 06/17/20 06:49 Direct Bilirubin 0.3 mg/dL Current Medications Medications (Trade) Dose Ordered Sig/Neftali Route PRN Reason Start Time Stop Time Status Last Admin Dose Admin Acetaminophen (Tylenol) 650 mg PRN Q6HRS PRN PO MILD PAIN / TEMP > 100.3'F 05/27/20 16:30 Multi-Ingredient Ointment (Analgesic [place]) 1 herman PRN QID PRN TP MUSCLE PAIN 05/27/20 16:30 Al Hydroxide/Mg Hydroxide (Mylanta Plus Xs) 15 ml PRN AFTMEALHC PRN PO DYSPEPSIA 05/27/20 16:30 Magnesium Hydroxide (Milk Of Magnesia) 2,400 mg PRN QHS PRN PO CONSTIPATION 05/27/20 16:30 Acetaminophen (Tylenol) 500 mg PRN Q6HRS PRN PO PAIN 05/27/20 18:15 UNV Aspirin (Aspirin Chewable) 81 mg DAILY PO 05/28/20 09:00 06/17/20 08:27 Docusate Sodium (Colace) 100 mg BID PO 05/27/20 21:00 06/08/20 12:12 DC 06/07/20 19:57 Donepezil HCl (Aricept) 10 mg HS PO 05/27/20 21:00 05/31/20 16:33 DC 05/30/20 20:39 Fluticasone Propionate (Flonase) 1 spray DAILY NS 05/28/20 09:00 06/17/20 08:27 Memantine (Namenda) 10 mg BID PO 05/27/20 21:00 05/31/20 16:33 DC 05/31/20 08:00 Quetiapine Fumarate (SEROquel) 100 mg QHS PO 05/27/20 21:00 06/04/20 16:21 DC 06/03/20 20:12 Trazodone HCl (Desyrel) 50 mg QHS PO 05/27/20 21:00 05/28/20 11:16 DC 05/27/20 20:02 Cyanocobalamin (Vitamin B-12) 100 mcg DAILY PO 05/28/20 09:00 06/17/20 08:27 Non-Formulary Medication (Ergocalciferol (Vitamin D2) (Vitamin D2)) 1,250 mcg WEEKLY PO 06/03/20 09:00 UNV Fluvoxamine Maleate (Luvox) 50 mg QHS PO 05/27/20 21:00 06/04/20 16:21 DC 06/03/20 20:12 Cetirizine HCl (ZyrTEC) 10 mg DAILY PO 05/28/20 09:00 06/17/20 08:27 Melatonin (Melatonin) 9 mg HS PO 05/27/20 21:00 05/28/20 11:16 DC 05/27/20 20:02 Multivitamins/ Calcium (Thera-M Plus) 1 tab DAILY PO 05/28/20 09:00 06/17/20 08:27 Pantoprazole Sodium (Protonix) 40 mg DAILYAC PO 05/28/20 07:30 06/17/20 08:26 Ondansetron HCl (Zofran Odt) 4 mg PRN Q6HRS PRN PO NAUSEA/VOMITING 05/27/20 19:00 Polyethylene Glycol (miraLAX) 17 gm DAILY PO 05/28/20 09:00 06/17/20 08:27 Vitamin D (Vitamin D3) 50,000 unit WEEKLY PO 05/28/20 09:00 06/11/20 08:30 Melatonin (Melatonin) 6 mg PRN QHS PRN PO INSOMNIA, 1ST CHOICE 05/28/20 11:15 06/04/20 16:30 DC 06/03/20 20:13 Trazodone HCl (Desyrel) 50 mg PRN QHS PRN PO INSOMNIA, MAY REPEAT X1 05/28/20 20:00 06/04/20 16:29 DC 06/03/20 20:14 Olanzapine (ZyPREXA ZYDIS) 2.5 mg PRN Q2HR PRN PO PSYCHOSIS 05/29/20 18:00 06/08/20 20:41 Quetiapine Fumarate (SEROquel) 12.5 mg 0900,1300 PO 06/01/20 09:00 06/04/20 16:21 DC 06/04/20 12:59 Sertraline HCl (Zoloft) 25 mg DAILY PO 06/01/20 09:00 06/04/20 09:00 DC 06/04/20 09:42 Mirtazapine (Remeron) 7.5 mg QHS PO 06/01/20 21:45 06/16/20 20:50 Sertraline HCl (Zoloft) 50 mg DAILY PO 06/05/20 09:00 06/07/20 09:00 DC 06/07/20 07:51 Olanzapine (ZyPREXA) 2.5 mg 0900,1300,1700 PO 06/04/20 17:00 06/17/20 08:26 Trazodone HCl (Desyrel) 50 mg QHS PO 06/04/20 21:00 06/16/20 20:50 Melatonin (Melatonin) 6 mg QHS PO 06/04/20 21:00 06/16/20 20:50 Sertraline HCl (Zoloft) 75 mg DAILY PO 06/08/20 09:00 06/12/20 16:30 DC 06/12/20 07:26 Dextrose 1,000 ml @ 100 mls/hr Q10H IV 06/09/20 20:10 06/10/20 06:52 DC 06/09/20 23:00 Sertraline HCl (Zoloft) 100 mg DAILY PO 06/13/20 09:00 06/17/20 08:27 I have reviewed the current psychotropics carefully including drug interactions. Risk benefit ratio favors no change other than as noted in my dictated progress note. Diagnosis: Problems: (1) Major neurocognitive disorder (2) Impulse control disorder, unspecified (3) Anxiety disorder, unspecified (4) Dementia, vascular, with depression (5) Dementia, vascular, with delusions (6) Dementia in Alzheimer's disease with depression (7) Dementia in Alzheimer's disease with delusions (8) Dementia of the Alzheimer's type with early onset with behavioral disturbance AYLIN VALENCIA MD Jun 17, 2020 10:17
--- NOTE | 2020-06-17 21:11 | PDOC ---
Exam Note: Lfoyd Note: Please also refer to the separate dictated note~for this date of service dictated separately.~Patient seen individually. Discussed the patient with Nursing staff reviewed the chart.~Reviewed interim history and current functioning. Reviewed vital signs,~Labs/ Radiology~and current medications noted below. Continue current treatment with the changes noted in the dictated addendum note Assessment: Vital Signs/I&O: Vital Signs Date Time Temp Pulse Resp B/P (MAP) Pulse Ox O2 Delivery O2 Flow Rate FiO2 06/17/20 06:03 97.9 72 16 124/80 (95) 95 06/14/20 15:53 Room Air I & O 06/16/20 06/16/20 06/17/20 15:00 23:00 07:00 Intake Total 1140 ml 120 ml Balance 1140 ml 120 ml Labs: Laboratory Tests Test 06/17/20 06:49 Direct Bilirubin 0.3 mg/dL (0.0-0.2) H Current Medications: Meds: Laboratory Tests Test 06/17/20 06:49 Direct Bilirubin 0.3 mg/dL Current Medications Medications (Trade) Dose Ordered Sig/Neftali Route PRN Reason Start Time Stop Time Status Last Admin Dose Admin Acetaminophen (Tylenol) 650 mg PRN Q6HRS PRN PO MILD PAIN / TEMP > 100.3'F 05/27/20 16:30 06/17/20 16:45 DC Multi-Ingredient Ointment (Analgesic [place]) 1 herman PRN QID PRN TP MUSCLE PAIN 05/27/20 16:30 06/17/20 16:45 DC Al Hydroxide/Mg Hydroxide (Mylanta Plus Xs) 15 ml PRN AFTMEALHC PRN PO DYSPEPSIA 05/27/20 16:30 06/17/20 16:45 DC Magnesium Hydroxide (Milk Of Magnesia) 2,400 mg PRN QHS PRN PO CONSTIPATION 05/27/20 16:30 06/17/20 16:45 DC Acetaminophen (Tylenol) 500 mg PRN Q6HRS PRN PO PAIN 05/27/20 18:15 UNV Aspirin (Aspirin Chewable) 81 mg DAILY PO 05/28/20 09:00 06/17/20 16:45 DC 06/17/20 08:27 Docusate Sodium (Colace) 100 mg BID PO 05/27/20 21:00 06/08/20 12:12 DC 06/07/20 19:57 Donepezil HCl (Aricept) 10 mg HS PO 05/27/20 21:00 05/31/20 16:33 DC 05/30/20 20:39 Fluticasone Propionate (Flonase) 1 spray DAILY NS 05/28/20 09:00 06/17/20 16:45 DC 06/17/20 08:27 Memantine (Namenda) 10 mg BID PO 05/27/20 21:00 05/31/20 16:33 DC 05/31/20 08:00 Quetiapine Fumarate (SEROquel) 100 mg QHS PO 05/27/20 21:00 06/04/20 16:21 DC 06/03/20 20:12 Trazodone HCl (Desyrel) 50 mg QHS PO 05/27/20 21:00 05/28/20 11:16 DC 05/27/20 20:02 Cyanocobalamin (Vitamin B-12) 100 mcg DAILY PO 05/28/20 09:00 06/17/20 16:45 DC 06/17/20 08:27 Non-Formulary Medication (Ergocalciferol (Vitamin D2) (Vitamin D2)) 1,250 mcg WEEKLY PO 06/03/20 09:00 UNV Fluvoxamine Maleate (Luvox) 50 mg QHS PO 05/27/20 21:00 06/04/20 16:21 DC 06/03/20 20:12 Cetirizine HCl (ZyrTEC) 10 mg DAILY PO 05/28/20 09:00 06/17/20 16:45 DC 06/17/20 08:27 Melatonin (Melatonin) 9 mg HS PO 05/27/20 21:00 05/28/20 11:16 DC 05/27/20 20:02 Multivitamins/ Calcium (Thera-M Plus) 1 tab DAILY PO 05/28/20 09:00 06/17/20 16:45 DC 06/17/20 08:27 Pantoprazole Sodium (Protonix) 40 mg DAILYAC PO 05/28/20 07:30 06/17/20 16:45 DC 06/17/20 08:26 Ondansetron HCl (Zofran Odt) 4 mg PRN Q6HRS PRN PO NAUSEA/VOMITING 05/27/20 19:00 06/17/20 16:45 DC Polyethylene Glycol (miraLAX) 17 gm DAILY PO 05/28/20 09:00 06/17/20 16:45 DC 06/17/20 08:27 Vitamin D (Vitamin D3) 50,000 unit WEEKLY PO 05/28/20 09:00 06/17/20 16:45 DC 06/11/20 08:30 Melatonin (Melatonin) 6 mg PRN QHS PRN PO INSOMNIA, 1ST CHOICE 05/28/20 11:15 06/04/20 16:30 DC 06/03/20 20:13 Trazodone HCl (Desyrel) 50 mg PRN QHS PRN PO INSOMNIA, MAY REPEAT X1 05/28/20 20:00 06/04/20 16:29 DC 06/03/20 20:14 Olanzapine (ZyPREXA ZYDIS) 2.5 mg PRN Q2HR PRN PO PSYCHOSIS 05/29/20 18:00 06/17/20 16:45 DC 06/08/20 20:41 Quetiapine Fumarate (SEROquel) 12.5 mg 0900,1300 PO 06/01/20 09:00 06/04/20 16:21 DC 06/04/20 12:59 Sertraline HCl (Zoloft) 25 mg DAILY PO 06/01/20 09:00 06/04/20 09:00 DC 06/04/20 09:42 Mirtazapine (Remeron) 7.5 mg QHS PO 06/01/20 21:45 06/17/20 16:45 DC 06/16/20 20:50 Sertraline HCl (Zoloft) 50 mg DAILY PO 06/05/20 09:00 06/07/20 09:00 DC 06/07/20 07:51 Olanzapine (ZyPREXA) 2.5 mg 0900,1300,1700 PO 06/04/20 17:00 06/17/20 16:45 DC 06/17/20 12:33 Trazodone HCl (Desyrel) 50 mg QHS PO 06/04/20 21:00 06/17/20 16:45 DC 06/16/20 20:50 Melatonin (Melatonin) 6 mg QHS PO 06/04/20 21:00 3/3/21 16:45 DC 06/16/20 20:50 Sertraline HCl (Zoloft) 75 mg DAILY PO 06/08/20 09:00 06/12/20 16:30 DC 06/12/20 07:26 Dextrose 1,000 ml @ 100 mls/hr Q10H IV 06/09/20 20:10 06/10/20 06:52 DC 06/09/20 23:00 Sertraline HCl (Zoloft) 100 mg DAILY PO 06/13/20 09:00 06/17/20 16:45 DC 06/17/20 08:27 I have reviewed the current psychotropics carefully including drug interactions. Risk benefit ratio favors no change other than as noted in my dictated progress note. Diagnosis: Problems: (1) Major neurocognitive disorder (2) Impulse control disorder, unspecified (3) Anxiety disorder, unspecified (4) Dementia, vascular, with depression (5) Dementia, vascular, with delusions (6) Dementia in Alzheimer's disease with depression (7) Dementia in Alzheimer's disease with delusions (8) Dementia of the Alzheimer's type with early onset with behavioral disturbance AYLIN VALENCIA MD Jun 17, 2020 21:11
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
== END 2020-06-17 15:15 | DRG 57 ==
LOC: GEROPSY 15:50
PROVIDERS: ADMIT Psychiatry & Neurology Psychiatry; ATTEND Psychiatry & Neurology Psychiatry
DX: G21.19 Other drug induced secondary parkinsonism (principal); F05 Delirium due to known physiological condition; R44.3 Hallucinations, unspecified; F02.81 Dementia in other diseases classified elsewhere, unspecified severity, with behavioral disturbance; G30.9 Alzheimer's disease, unspecified; R45.87 Impulsiveness; F63.9 Impulse disorder, unspecified; F41.9 Anxiety disorder, unspecified; E86.0 Dehydration; T42.4X5A Adverse effect of benzodiazepines, initial encounter; F32.9 Major depressive disorder, single episode, unspecified; Z91.81 History of falling; Z86.73 Personal history of transient ischemic attack (TIA), and cerebral infarction without residual deficits; Z79.899 Other long term (current) drug therapy; Z78.1 Physical restraint status
CPT/HCPCS: 36415; 70450; 72125; 80048; 80053; 80061; 81001; 82248; 82306; 82607; 83036; 83540; 83550; 83735; 84436; 84443; 84480; 85007; 85025; 85379; 86592; 97530